=== PATIENT | female | born 1965 | race Caucasian/White ===

== ENCOUNTER 2020-05-09 12:18 | Outpatient (REF) | payer MEDICARE, MEDICAID, SELFPAY ==
--- NOTE | 2020-05-09 12:41 | CT_ITS ---
EXAMINATION: CT ABDOMEN AND PELVIS WITH CONTRAST CLINICAL INFORMATION: Malignant carcinoid tumor of the ileum COMPARISON: 12/21/2019 TECHNIQUE: Multidetector volumetric images were obtained from the superior aspect of the liver through the pubic symphysis following administration 85 mL of Omnipaque 350 intravenous contrast. Sagittal and coronal reformatted images were obtained on the technologist's workstation. Oral contrast: Yes This CT examination was performed using dose optimization techniques as appropriate, variously including the following: *Automated exposure control *Adjustment of mA and/or kV according to patient size (this includes techniques or standardized protocols for targeted exams where dose is matched to indication/reason for exam; i.e. extremities or head) *Use of iterative reconstruction technique DLP: 369 mGy-cm FINDINGS: LUNG BASES: The visualized lung bases are unremarkable. LIVER, GALLBLADDER, AND BILIARY TREE: Several hypoattenuating lesions compatible with metastases are again demonstrated. The majority of these appear similar to the previous study, with the exception of the lesion in the right hepatic lobe on image 20 which has increased in size, measuring 1.5 cm (previously 0.6 cm). No intrahepatic or extrahepatic biliary ductal dilatation. PANCREAS: Unremarkable. SPLEEN: Unremarkable. ADRENAL GLANDS: Unremarkable. KIDNEYS AND URETERS: The kidneys are normal in size, shape, and attenuation. No hydronephrosis, hydroureter, or calculi seen. No perinephric stranding. BLADDER: Unremarkable. GASTROINTESTINAL TRACT: The small and large bowel are unremarkable. No change. ABDOMINAL WALL: No significant hernia is appreciated. LYMPH NODES: Redemonstration of retroperitoneal/para-aortic lymphadenopathy. A left para-aortic lymph node immediately distal to the left renal artery measures 1.7 cm in transverse dimension, previously measuring 1.1 cm. Again demonstrated is a alphonso mass distal to the pancreatic head surrounding and narrowing the superior mesenteric vein, with enlargement of the small bowel mesenteric veins. This is demonstrated on axial images 31-35 and appears slightly larger. VASCULAR: Unremarkable. PELVIC VISCERA: Unremarkable. OSSEOUS STRUCTURES: There is increased density involving the superior portion of the S1 vertebral body which is similar to the previous study although is concerning for an osteoblastic metastasis. IMPRESSION: Increase in retroperitoneal adenopathy and the largest liver metastasis located in the right lobe as described. Slight increase in the alphonso mass surrounding the proximal SMV/peripancreatic region. Questionable osseous metastasis in the S1 vertebral body, similar to the previous study.
[2020-05-09 12:56] LABS: MANUAL DIFF FLAG NO
[2020-05-09 12:59] LABS: Basophils Percent Auto 0.5 % (0-2); Eosinophils Absolute Auto 0.1 X10*3/uL (0.0-0.4); Eosinophils Percent Auto 2.1 % (0-4); Hematocrit 35.8 % (37-47); Hemoglobin 11.5 g/dl (12.0-16.0); Imm Gran Abs Auto 0.01 X10*3/uL (0.00-0.03); Imm Gran Pct Auto 0.3 % (0.0-0.4); Lymphocytes Absolute Auto 0.7 X10*3/uL (1.2-4.9); Lymphocytes Percent Auto 18.6 % (20-40); Mean Corpuscular HGB Conc 32.1 g/dl (31.0-35.0); Mean Corpuscular Hemoglobin 28.8 pg (27.0-33.0); Mean Corpuscular Volume 89.7 fL (80-98); Mean Platelet Volume 10.1 fL (9.4-12.3); Monocytes Absolute Auto 0.3 X10*3/uL (0.1-1.2); Monocytes Percent Auto 6.4 % (2-11); Neutrophils Absolute Auto 2.8 X10*3/uL (2.0-8.3); Neutrophils Percent Auto 72.1 % (45-73); Platelet Count 236 X10*3/uL (160-400); Red Blood Count 3.99 X10*6/uL (4.20-5.50); Red Cell Distribution Width 13.4 % (11.0-16.0); White Blood Count 3.9 X10*3/uL (4.8-10.8)
[2020-05-09 13:48] LABS: Alanine Aminotransferase 10 U/L (0-31); Albumin Level 4.7 g/dL (3.5-5.0); Alkaline Phosphatase 94 U/L (39-117); Anion Gap 11 (12-20); Aspartate Amino Transferase 17 U/L (5-31); Bilirubin Total 0.3 mg/dL (0.0-1.0); Blood Urea Nitrogen 16 mg/dL (9-16); Calcium 9.2 mg/dL (8.4-10.2); Carbon Dioxide 27 mmol/L (22-29); Chloride 106 mmol/L (96-108); Estimated Glomerular Filt Rate 59; Glucose Random 69 mg/dL (60-115); Potassium 4.2 mmol/l (3.3-5.1); Sodium 140 mmol/L (135-145); Total Protein 7.5 g/dL (6.5-8.0)
[2020-05-09] MEDS: iohexoL 350 MG/ML 100 ML INFUS..BTL IV (15:40)
[2020-05-09] MEDS: Barium Sulfate Oral (Berry) 450 ML ORAL.SUSP PO ×2 (15:40→15:41)
[2020-05-14 18:06] LABS: Chromogranin A 766 ng/mL (25-140)
== END 2020-05-09 12:19 | disposition home or self-care (01) ==
LOC: HO.CT 12:18
PROVIDERS: PCP Internal Medicine; Visit Provider Internal Medicine Medical Oncology
DX: C7A.012 Malignant carcinoid tumor of the ileum (principal)
CPT/HCPCS: 36415; 74177; 80053; 85025; 86316

== ENCOUNTER 2020-06-27 12:40 | Outpatient (REF) | payer MEDICARE, MEDICAID, SELFPAY ==
[2020-06-27 13:48] LABS: Basophils Percent Auto 0.6 % (0-2); Eosinophils Absolute Auto 0.1 X10*3/uL (0.0-0.4); Eosinophils Percent Auto 1.7 % (0-4); Hematocrit 33.2 % (37-47); Hemoglobin 10.2 g/dl (12.0-16.0); Imm Gran Abs Auto 0.02 X10*3/uL (0.00-0.03); Imm Gran Pct Auto 0.4 % (0.0-0.4); Lymphocytes Absolute Auto 0.5 X10*3/uL (1.2-4.9); Lymphocytes Percent Auto 11.3 % (20-40); MANUAL DIFF FLAG SCAN; Mean Corpuscular HGB Conc 30.7 g/dl (31.0-35.0); Mean Corpuscular Hemoglobin 27.9 pg (27.0-33.0); Mean Platelet Volume 9.4 fL (9.4-12.3); Monocytes Absolute Auto 0.4 X10*3/uL (0.1-1.2); Monocytes Percent Auto 8.8 % (2-11); Neutrophils Absolute Auto 3.7 X10*3/uL (2.0-8.3); Neutrophils Percent Auto 77.2 % (45-73); Platelet Count 375 X10*3/uL (160-400); Red Blood Count 3.65 X10*6/uL (4.20-5.50); Red Cell Distribution Width 12.7 % (11.0-16.0); SCAN SMEAR FLAG 1; White Blood Count 4.8 X10*3/uL (4.8-10.8)
[2020-06-27 14:16] LABS: SLIDE REVIEW VERIFIED
[2020-06-27 14:25] LABS: Alanine Aminotransferase 164 U/L (0-31); Alkaline Phosphatase 226 U/L (39-117); Anion Gap 14 (12-20); Aspartate Amino Transferase 53 U/L (5-31); Bilirubin Total 0.3 mg/dL (0.0-1.0); Blood Urea Nitrogen 12 mg/dL (9-16); Carbon Dioxide 33 mmol/L (22-29); Chloride 97 mmol/L (96-108); Estimated Glomerular Filt Rate 47; Glucose Random 111 mg/dL (60-115); Sodium 140 mmol/L (135-145); Total Protein 7.2 g/dL (6.5-8.0)
[2020-07-01 19:32] LABS: Chromogranin A 680 ng/mL (25-140)
== END 2020-06-27 12:41 | disposition home or self-care (01) ==
LOC: HO.LAB 12:40
PROVIDERS: PCP Internal Medicine; Visit Provider Internal Medicine Medical Oncology
DX: C7A.012 Malignant carcinoid tumor of the ileum (principal)
CPT/HCPCS: 36415; 80053; 85025; 86316

== ENCOUNTER 2020-07-31 15:14 | Outpatient (REF) | payer MEDICARE, MEDICAID, SELFPAY ==
[2020-07-31 15:47] LABS: Basophils Percent Auto 0.8 % (0-2); Eosinophils Absolute Auto 0.2 X10*3/uL (0.0-0.4); Eosinophils Percent Auto 5.9 % (0-4); Hematocrit 36.4 % (37-47); Hemoglobin 11.2 g/dl (12.0-16.0); Imm Gran Abs Auto 0.01 X10*3/uL (0.00-0.03); Imm Gran Pct Auto 0.3 % (0.0-0.4); Lymphocytes Absolute Auto 0.7 X10*3/uL (1.2-4.9); Lymphocytes Percent Auto 19.6 % (20-40); MANUAL DIFF FLAG NO; Mean Corpuscular HGB Conc 30.8 g/dl (31.0-35.0); Mean Corpuscular Hemoglobin 27.9 pg (27.0-33.0); Mean Corpuscular Volume 90.5 fL (80-98); Mean Platelet Volume 9.9 fL (9.4-12.3); Monocytes Absolute Auto 0.3 X10*3/uL (0.1-1.2); Monocytes Percent Auto 7.5 % (2-11); Neutrophils Absolute Auto 2.5 X10*3/uL (2.0-8.3); Neutrophils Percent Auto 65.9 % (45-73); Platelet Count 230 X10*3/uL (160-400); Red Blood Count 4.02 X10*6/uL (4.20-5.50); Red Cell Distribution Width 13.4 % (11.0-16.0); White Blood Count 3.7 X10*3/uL (4.8-10.8)
[2020-07-31 16:11] LABS: Alanine Aminotransferase 30 U/L (0-31); Albumin Level 4.5 g/dL (3.5-5.0); Alkaline Phosphatase 152 U/L (39-117); Anion Gap 10 (12-20); Aspartate Amino Transferase 37 U/L (5-31); Bilirubin Total 0.2 mg/dL (0.0-1.0); Blood Urea Nitrogen 11 mg/dL (9-16); Calcium 8.8 mg/dL (8.4-10.2); Carbon Dioxide 31 mmol/L (22-29); Chloride 103 mmol/L (96-108); Estimated Glomerular Filt Rate 59; Glucose Random 90 mg/dL (60-115); Potassium 4.2 mmol/l (3.3-5.1); Sodium 140 mmol/L (135-145); Total Protein 7.5 g/dL (6.5-8.0)
[2020-08-05 18:07] LABS: Chromogranin A 691 ng/mL (25-140)
== END 2020-07-31 15:15 | disposition home or self-care (01) ==
LOC: HO.LAB 15:14
PROVIDERS: PCP Internal Medicine; Visit Provider Internal Medicine Medical Oncology
DX: C7A.012 Malignant carcinoid tumor of the ileum (principal)
CPT/HCPCS: 36415; 80053; 85025; 86316

== ENCOUNTER → 2020-08-16 13:56 | Outpatient (BNVA) | payer OTHER, MEDICARE, SELFPAY | PROVIDERS: PCP Internal Medicine; Visit Provider Internal Medicine Gastroenterology | DX: Z13.89 Encounter for screening for other disorder (principal) | CPT/HCPCS: Q3014 ==

== ENCOUNTER 2020-08-23 12:40 | Outpatient (REF) | payer OTHER, SELFPAY ==
[2020-08-23 13:19] LABS: MANUAL DIFF FLAG NO
[2020-08-23 13:24] LABS: Basophils Percent Auto 0.7 % (0-2); Eosinophils Absolute Auto 0.1 X10*3/uL (0.0-0.4); Eosinophils Percent Auto 1.1 % (0-4); Hematocrit 33.9 % (37-47); Hemoglobin 10.6 g/dl (12.0-16.0); Imm Gran Abs Auto 0.01 X10*3/uL (0.00-0.03); Imm Gran Pct Auto 0.2 % (0.0-0.4); Lymphocytes Absolute Auto 0.8 X10*3/uL (1.2-4.9); Lymphocytes Percent Auto 17.3 % (20-40); Mean Corpuscular HGB Conc 31.3 g/dl (31.0-35.0); Mean Corpuscular Hemoglobin 27.7 pg (27.0-33.0); Mean Corpuscular Volume 88.7 fL (80-98); Mean Platelet Volume 9.8 fL (9.4-12.3); Monocytes Absolute Auto 0.3 X10*3/uL (0.1-1.2); Monocytes Percent Auto 6.8 % (2-11); Neutrophils Absolute Auto 3.3 X10*3/uL (2.0-8.3); Neutrophils Percent Auto 73.9 % (45-73); Platelet Count 227 X10*3/uL (160-400); Red Blood Count 3.82 X10*6/uL (4.20-5.50); Red Cell Distribution Width 13.5 % (11.0-16.0); White Blood Count 4.4 X10*3/uL (4.8-10.8)
[2020-08-23 13:45] LABS: Alanine Aminotransferase 19 U/L (0-31); Albumin Level 4.5 g/dL (3.5-5.0); Alkaline Phosphatase 139 U/L (39-117); Anion Gap 11 (12-20); Aspartate Amino Transferase 23 U/L (5-31); Bilirubin Total 0.2 mg/dL (0.0-1.0); Blood Urea Nitrogen 20 mg/dL (9-16); Carbon Dioxide 28 mmol/L (22-29); Chloride 102 mmol/L (96-108); Estimated Glomerular Filt Rate > 60; Glucose Random 94 mg/dL (60-115); Potassium 4.4 mmol/l (3.3-5.1); Sodium 137 mmol/L (135-145); Total Protein 7.4 g/dL (6.5-8.0)
[2020-08-28 21:53] LABS: Chromogranin A 694 ng/mL (25-140)
== END 2020-08-23 12:41 | disposition home or self-care (01) ==
LOC: HO.LAB 12:40
PROVIDERS: Visit Provider Internal Medicine Medical Oncology
DX: E34.0 Carcinoid syndrome (principal)
CPT/HCPCS: 36415; 80053; 85025; 86316

== ENCOUNTER 2020-08-31 08:24 | Day surgery (SDC) | payer OTHER, SELFPAY ==
[2020-08-28 09:18] VITALS: BMI 23.8
--- NOTE | 2020-08-28 13:12 | HO.ANESPROP2 ---
Documented by User: Marisol Ordoñez 08/28/20 13:16 HPI - Anesthesia Eval Consult details Narrative: 54yo F for Upper Endoscopy PMFSH Past Medical History Medical History Depression History of headache HTN (hypertension) Hx of left bundle branch block Lab test negative for COVID-19 virus Liver metastasis Malignant carcinoid tumor of ileum Family History Family History Brother History of throat cancer Maternal Aunt History of colon cancer Mother Hx of completed stroke Father No problems noted. Surgical History Surgical History H/O colonoscopy History of History of endometrial ablation History of esophagogastroduodenoscopy (EGD) History of right hemicolectomy (~01/2018) Hx of dilation and curettage Hx of eye surgery Hx of tubal ligation Social History Social History Household Members: Spouse and Children Are you a primary client care representative to a significant other at home: No Do you presently have visiting nurse or other home services: No Alcohol intake: never Smoking Status: Never smoker Use of substances other than those prescribed or required for medical reasons: No Have you been hit, kicked, punched, or otherwise hurt by someone within the past year? If so, by whom?: No Advance Directives Information Provided: No Recently lost weight without trying: No Current occupational status: disabled Narrative Narrative: 2019 cardiac work up for presyncope and chest pain was negative by echo and holter. No need for ischemic w/u per cardiology. Meds Allergies Allergy/AdvReac Type Severity Reaction Status Date / Time oxycodone Allergy Intermediate hives Verified 08/31/20 09:01 Home Medications Medication Instructions Recorded Confirmed Type carvedilol 6.25 mg tablet 6.25 mg PO BID 08/16/20 08/27/20 History telotristat etiprate 250 mg tablet 250 mg PO BID tab 08/16/20 08/27/20 History Exam Exam Date and Time: August 28, 2020 1312 Height,Weight and Vital Signs: Height 5 ft 2 in Weight 58.967 kg Pertinent Lab Results Pertinent Lab Results: Laboratory Tests 08/23/20 08/23/20 13:00 13:00 WBC 4.4 L Hgb 10.6 L Hct 33.9 L Plt Count 227 Sodium 137 Potassium 4.4 Chloride 102 Carbon Dioxide 28 BUN 20 H D Creatinine 0.92 Assessment and Plan Assessment Anesthesia Assessment: Chart Reviewed Documented by User: Sourav Salazar 08/31/20 09:11 [facility] Past Medical History Medical History Depression History of headache HTN (hypertension) Hx of left bundle branch block Lab test negative for COVID-19 virus Liver metastasis Malignant carcinoid tumor of ileum Family History Family History Brother History of throat cancer Maternal Aunt History of colon cancer Mother Hx of completed stroke Father No problems noted. Surgical History Surgical History H/O colonoscopy History of History of endometrial ablation History of esophagogastroduodenoscopy (EGD) History of right hemicolectomy (~01/2018) Hx of dilation and curettage Hx of eye surgery Hx of tubal ligation Social History Social History Household Members: Spouse and Children Are you a primary client care representative to a significant other at home: No Do you presently have visiting nurse or other home services: No Alcohol intake: never Smoking Status: Never smoker Use of substances other than those prescribed or required for medical reasons: No Have you been hit, kicked, punched, or otherwise hurt by someone within the past year? If so, by whom?: No Advance Directives Information Provided: No Recently lost weight without trying: No Current occupational status: disabled Meds Allergies Allergy/AdvReac Type Severity Reaction Status Date / Time oxycodone Allergy Intermediate hives Verified 08/31/20 09:01 Home Medications Medication Instructions Recorded Confirmed Type carvedilol 6.25 mg tablet 6.25 mg PO BID 08/16/20 08/27/20 History telotristat etiprate 250 mg tablet 250 mg PO BID tab 08/16/20 08/27/20 History Exam Airway Mallampati Class: II TM Dist: >3cm Neck ROM: Full
[2020-08-31 09:01] VITALS: BP 141/91; PULSE 66; RESP 18; TEMP 36.1; O2SAT 95
--- NOTE | 2020-08-31 09:12 | W.PM.OPN ---
Operative Note Operative Note Date of Service: 08/31/20 Narrative: Pre-op diagnosis: Nausea and vomiting Post-op diagnosis: other (Gastritis, gastric polyps) Procedure: FLEXIBLE TRANSORAL UPPER GASTROINTESTINAL ENDOSCOPY WITH BIOPSIES Consent: Indications for the procedure and potential complications of bleeding, perforation, reaction to medications and missed diagnosis were discussed with the patient and informed consent was obtained. Instrument: Olympus GIF H 190 mid size upper endoscope Monitoring: Vital signs and clinical assessment, continuous EKG monitoring, Pulse oximetry, Carbon Dioxide monitoring and blood pressure monitoring were done throughout the procedure. Procedure: The patient was placed in the left lateral decubitis position and pre-procedure medications were administered and a bite block was placed. The endoscope was inserted into the mouth and advanced under direct vision to the third part of duodenum. A careful inspection was made as the upper endoscope was withdrawn including a retroflexed examination of the proximal stomach; Findings and interventions are described below. Findings: Esophagus: GE junction at 35 cms. Irregular Z-line, - biopsies to check for Asencio's Stomach: Moderate diffuse gastric erythema. Biopsies were obtained from the gastric body and antrum. Multiple 3 - 5 mm polyps in the gastric body - biopsied. Grade 2 flap valve on retroflexed examination of the cardia. Duodenum: Normal bulb and descending duodenum. Biopsies were obtained from the 2nd part of duodenum to check for celiac sprue. Intervention: Biopsies as noted above Impression and Post Procedure Diagnosis: Endoscopy Findings: ESOPHAGUS: Irregular Z-line, - biopsied to check for Asencio's STOMACH: Moderate diffuse gastritis DUODENUM: Normal biopsied to check for celiac sprue No clear source found for patient's symptoms of nausea and vomiting - possibly related to medications versus partial small-bowel obstruction. Plan: Await pathology results. If biopsies are normal, further evaluation with MR enterography versus small-bowel follow-through will be scheduled. Patient has a FU appointment in the [facility] on 09/06/2020 with Phoebe Doulgass M.D.-. Above findings were reviewed with the patient and Gastritis handout was given in the discharge area Surgeon: Phobee Douglass MD Anesthesia: MAC (TORPEDO SHOOTER Cuff) Estimated blood loss (mL): 0 Pathology: other (A. Small-bowel, B. gastric antrum, C. gastric polyp, D. distal esophagus) Condition: stable Disposition: PACU
--- NOTE | 2020-08-31 09:12 | MHC.SHP ---
Pre-Procedural Eval Section A The patient is an INPATIENT: No Changes since office visit: Yes Patient answered all questions; No Cold of Flu in the past 2 weeks and No New Medical Problems The History & Physical has been completed within 30 days and I have reviewed it.: Yes Section B Chief Complaint: dysphagia Allergies: Allergies Allergy/AdvReac Type Severity Reaction Status Date / Time oxycodone Allergy Intermediate hives Verified 08/31/20 09:01 Plan I have reviewed the history and physical and performed a pertinent physical examination on my patient. No changes have occurred unless specified.
[2020-08-31] MEDS: Lactated Ringers 1,000 ML 100 ML IVCONT (09:14)
[2020-08-31 09:42] VITALS: BP 111/68; PULSE 65; RESP 16; TEMP 36.4; O2SAT 100
[2020-08-31 09:57] VITALS: BP 136/76; PULSE 67; RESP 13; TEMP 36.4; O2SAT 100
== END 2020-08-31 10:25 | disposition home or self-care (01) ==
PROVIDERS: PCP Internal Medicine; Visit Provider Internal Medicine Gastroenterology
PROC: 0DJ08ZZ Inspection of Upper Intestinal Tract, Via Natural or Artificial Opening Endoscopic (ICD-10-PCS; CPT 43235; principal; 2020-08-31 09:50)
DX: R13.12 Dysphagia, oropharyngeal phase (principal); K29.50 Unspecified chronic gastritis without bleeding; B96.81 Helicobacter pylori [H. pylori] as the cause of diseases classified elsewhere; K31.7 Polyp of stomach and duodenum; C7A.012 Malignant carcinoid tumor of the ileum; C7B.02 Secondary carcinoid tumors of liver; Z90.49 Acquired absence of other specified parts of digestive tract; I10 Essential (primary) hypertension; F32.9 Major depressive disorder, single episode, unspecified; G43.909 Migraine, unspecified, not intractable, without status migrainosus; Z79.899 Other long term (current) drug therapy; Z88.8 Allergy status to other drugs, medicaments and biological substances; Z80.1 Family history of malignant neoplasm of trachea, bronchus and lung; Z82.3 Family history of stroke
CPT/HCPCS: 43239; 88305; 88342

== ENCOUNTER → 2020-09-06 12:59 | Outpatient (BNVA) | payer OTHER, SELFPAY | PROVIDERS: PCP Internal Medicine; Visit Provider Internal Medicine Gastroenterology | DX: Z13.89 Encounter for screening for other disorder (principal) | CPT/HCPCS: Q3014 ==

== ENCOUNTER 2020-09-21 13:29 | Outpatient (REF) | payer OTHER, SELFPAY ==
[2020-09-21 14:20] LABS: MANUAL DIFF FLAG NO
[2020-09-21 14:23] LABS: Basophils Percent Auto 0.6 % (0-2); Eosinophils Absolute Auto 0.1 X10*3/uL (0.0-0.4); Eosinophils Percent Auto 2.2 % (0-4); Hematocrit 33.2 % (37-47); Hemoglobin 10.6 g/dl (12.0-16.0); Imm Gran Abs Auto 0.01 X10*3/uL (0.00-0.03); Imm Gran Pct Auto 0.3 % (0.0-0.4); Lymphocytes Absolute Auto 0.8 X10*3/uL (1.2-4.9); Lymphocytes Percent Auto 21.8 % (20-40); Mean Corpuscular HGB Conc 31.9 g/dl (31.0-35.0); Mean Corpuscular Hemoglobin 27.9 pg (27.0-33.0); Mean Corpuscular Volume 87.4 fL (80-98); Mean Platelet Volume 10.3 fL (9.4-12.3); Monocytes Absolute Auto 0.3 X10*3/uL (0.1-1.2); Neutrophils Absolute Auto 2.4 X10*3/uL (2.0-8.3); Neutrophils Percent Auto 68.1 % (45-73); Platelet Count 222 X10*3/uL (160-400); Red Cell Distribution Width 13.8 % (11.0-16.0); White Blood Count 3.6 X10*3/uL (4.8-10.8)
[2020-09-21 14:56] LABS: Alanine Aminotransferase 26 U/L (0-31); Albumin Level 4.4 g/dL (3.5-5.0); Alkaline Phosphatase 126 U/L (39-117); Anion Gap 9 (12-20); Aspartate Amino Transferase 50 U/L (5-31); Bilirubin Total 0.5 mg/dL (0.0-1.0); Blood Urea Nitrogen 13 mg/dL (9-16); Calcium 8.8 mg/dL (8.4-10.2); Carbon Dioxide 27 mmol/L (22-29); Chloride 105 mmol/L (96-108); Estimated Glomerular Filt Rate 55; Glucose Random 120 mg/dL (60-115); Potassium 4.1 mmol/L (3.3-5.1); Sodium 137 mmol/L (135-145); Total Protein 7.3 g/dL (6.5-8.0)
[2020-09-25 17:52] LABS: Chromogranin A 812 ng/mL (25-140)
== END 2020-09-21 13:30 | disposition home or self-care (01) ==
LOC: HO.LAB 13:29
PROVIDERS: PCP Internal Medicine; Visit Provider Internal Medicine Medical Oncology
DX: C7A.012 Malignant carcinoid tumor of the ileum (principal)
CPT/HCPCS: 36415; 80053; 85025; 86316

== ENCOUNTER → 2020-10-15 11:45 | Outpatient (BNVA) | payer OTHER, SELFPAY | PROVIDERS: Visit Provider Internal Medicine Gastroenterology | CPT/HCPCS: Q3014 ==

== ENCOUNTER 2020-10-17 09:03 | Outpatient (REF) | payer OTHER, SELFPAY ==
--- NOTE | ~2020-10-17 | CT_ITS ---
EXAMINATION: CT ABDOMEN AND PELVIS WITH CONTRAST CLINICAL INFORMATION: History malignant carcinoid ileum with small liver metastasis. Follow-up. COMPARISON: CT abdomen and pelvis with contrast 05/09/2020, 12/21/2019, 06/07/2019, 12/22/2018. TECHNIQUE: Multidetector volumetric images were obtained from the superior aspect of the liver through the pubic symphysis following administration 85 mL of Omnipaque 350 intravenous contrast. Sagittal and coronal reformatted images were obtained on the technologist's workstation. Oral contrast: No This CT examination was performed using dose optimization techniques as appropriate, variously including the following: *Automated exposure control *Adjustment of mA and/or kV according to patient size (this includes techniques or standardized protocols for targeted exams where dose is matched to indication/reason for exam; i.e. extremities or head) *Use of iterative reconstruction technique DLP: 353 mGy-cm FINDINGS: LUNG BASES: The visualized lung bases are unremarkable. LIVER, GALLBLADDER, AND BILIARY TREE: The dominant ill-defined hypodense lesion central right lobe is again approximately 1.5 cm in diameter. There is interval satellite foci extending laterally and inferiorly with associated capsular retraction since prior CT 05/09/2020. Remainder of the liver appear stable from prior study. Again, there are a few tiny low-attenuation foci without change. The gallbladder is unremarkable with no evidence of radiopaque gallstones, gallbladder wall thickening, or obvious pericholecystic inflammatory changes. PANCREAS: Unremarkable. SPLEEN: Unremarkable. ADRENAL GLANDS: Unremarkable. KIDNEYS AND URETERS: The kidneys are normal in size, shape, and attenuation. No hydronephrosis, hydroureter, or calculi seen. No perinephric stranding. BLADDER: Unremarkable. GASTROINTESTINAL TRACT: Prior partial right hemicolectomy. No bowel obstruction or inflammatory changes in the bowel or mesentery. No ascites or fluid collection. ABDOMINAL WALL: No significant hernia is appreciated. LYMPH NODES: Scattered upper retroperitoneal adenopathy at level and just below renal vessels are stable. There is stable mesenteric node adjacent to anterior inferior pancreatic head. VASCULAR: Unremarkable. PELVIC VISCERA: Unremarkable. OSSEOUS STRUCTURES: Unremarkable. CT/CT abdomen pelvis w con IMPRESSION: 1. Liver: New ill-defined satellite foci adjacent to the dominant metastatic lesion central right hepatic lobe with new mild capsular retraction. Other smaller subcentimeter hepatic lesions stable. 2. Adenopathy: Retroperitoneal and central mesenteric nodes stable. 3. No bowel obstruction or ascites.
[2020-10-17] MEDS: Barium Sulfate Oral (Mocha) 450 ML ORAL.SUSP 900 ML PO (12:21)
== END 2020-10-17 09:04 | disposition home or self-care (01) ==
LOC: HO.CT 09:03
PROVIDERS: PCP Internal Medicine Medical Oncology; Visit Provider Internal Medicine Medical Oncology
DX: E34.0 Carcinoid syndrome (principal)
CPT/HCPCS: 74177; Q9967

== ENCOUNTER 2020-11-09 09:03 | Outpatient (REF) | payer OTHER, SELFPAY ==
[2020-11-09 09:39] LABS: Basophils Percent Auto 0.6 % (0-2); Eosinophils Absolute Auto 0.1 X10*3/uL (0.0-0.4); Eosinophils Percent Auto 4.2 % (0-4); Hemoglobin 11.3 g/dl (12.0-16.0); Imm Gran Abs Auto 0.01 X10*3/uL (0.00-0.03); Imm Gran Pct Auto 0.3 % (0.0-0.4); Lymphocytes Absolute Auto 0.7 X10*3/uL (1.2-4.9); Lymphocytes Percent Auto 19.3 % (20-40); MANUAL DIFF FLAG SCAN; Mean Corpuscular HGB Conc 30.5 g/dl (31.0-35.0); Mean Corpuscular Volume 88.3 fL (80-98); Mean Platelet Volume 9.9 fL (9.4-12.3); Monocytes Absolute Auto 0.2 X10*3/uL (0.1-1.2); Monocytes Percent Auto 5.9 % (2-11); Neutrophils Absolute Auto 2.4 X10*3/uL (2.0-8.3); Neutrophils Percent Auto 69.7 % (45-73); Platelet Count 244 X10*3/uL (160-400); Red Blood Count 4.19 X10*6/uL (4.20-5.50); Red Cell Distribution Width 13.9 % (11.0-16.0); SCAN SMEAR FLAG 1; White Blood Count 3.4 X10*3/uL (4.8-10.8)
[2020-11-09 10:03] LABS: Alanine Aminotransferase 20 U/L (0-31); Albumin Level 4.9 g/dL (3.5-5.0); Alkaline Phosphatase 129 U/L (39-117); Anion Gap 11 (12-20); Aspartate Amino Transferase 24 U/L (5-31); Blood Urea Nitrogen 13 mg/dL (9-16); Calcium 9.3 mg/dL (8.4-10.2); Carbon Dioxide 31 mmol/L (22-29); Chloride 103 mmol/L (96-108); Estimated Glomerular Filt Rate 52; Glucose Random 98 mg/dL (60-115); Potassium 4.3 mmol/L (3.3-5.1); Sodium 141 mmol/L (135-145)
[2020-11-09 10:16] LABS: Bilirubin Total 0.4 mg/dL (0.0-1.0)
[2020-11-09 10:31] LABS: SLIDE REVIEW VERIFIED
[2020-11-14 18:02] LABS: Chromogranin A 820 ng/mL (25-140)
== END 2020-11-09 09:04 | disposition home or self-care (01) ==
LOC: HO.LAB 09:03
PROVIDERS: PCP Internal Medicine; Visit Provider Internal Medicine Medical Oncology
DX: C7A.012 Malignant carcinoid tumor of the ileum (principal)
CPT/HCPCS: 36415; 80053; 85025; 86316

== ENCOUNTER 2020-11-15 08:19 | Outpatient (REF) | payer OTHER, SELFPAY ==
--- NOTE | ~2020-11-15 | MM_ITS ---
EXAMINATION: BONE DENSITOMETRY CLINICAL INDICATION: Asymptomatic menopausal state. COMPARISON: None (current study represents initial baseline exam). TECHNIQUE: Using a [employer] DXA System (software version: 13.1) manufactured by [employer], dual-energy x-ray absorptiometry was performed of the lumbar spine and left hip. The images are of good technical quality. Summary results are attached. FINDINGS: AP SPINE L1-L4: BMD 1.038 g/cm2, Z-score -0.1, T-score -1.2, osteopenia. LEFT FEMUR, NECK: BMD 0.724 g/cm2, Z-score -1.1, T-score -2.3, osteopenia. LEFT FEMUR, TOTAL: BMD 0.742 g/cm2, Z-score -1.3, T-score -2.1, osteopenia. IDENTIFIED RISK FACTORS: Secondary osteoporosis, menopause. HISTORY OF FRACTURE: None listed. MEDICATIONS: None listed. MM/XR DEXA axial skeleton IMPRESSION: 1. DIAGNOSIS: Osteopenia based on the lowest T-score value of -2.3 in the femoral neck applying World Health Organization criteria. 2. 10-YEAR FRACTURE RISK PREDICTION, FRAX: Major osteoporotic fracture (clinical spine, forearm, hip or shoulder) 5.3%. Hip fracture 0.8%. 3. Treatment Recommendations: NOF guidelines recommend consideration for treatment in postmenopausal women and men age 50 and older presenting with the following: -A hip or vertebral (clinical or morphometric) fracture. -T-score less than or equal to -2.5 at the femoral neck or spine after appropriate evaluation to exclude secondary causes. -Low bone mass at the hip or spine and a 10-year fracture probability by FRAX of greater than or equal to 3% for hip fracture or greater than or equal to 20% for major osteoporotic fracture based on the [place] adapted WHO algorithm. 4. Other Recommendations: All treatment decisions require clinical judgment and consideration of individual patient factors, including patient preferences, comorbidities, previous drug use, risk factors not captured in the FRAX model (e.g. frailty, falls, vitamin D deficiency, increased bone turnover, interval significant decline in bone density) and possible under or overestimation of fracture risk by FRAX. Additional medical evaluation for secondary cause of low bone mineral density may be appropriate. FUTURE SCAN RECOMMENDATION: People with diagnosed cases of osteoporosis or at high risk for fracture should have regular bone mineral density tests. For patients eligible for Medicare, routine testing is allowed once every 2 years. The testing frequency can be increased to one year for patients who have rapidly progressing disease, those who are receiving or discontinuing medical therapy to restore bone mass, or have additional risk factors.
== END 2020-11-15 08:20 | disposition home or self-care (01) ==
LOC: HO.MAMMO 08:19
PROVIDERS: PCP Internal Medicine; Visit Provider Internal Medicine
DX: Z13.820 Encounter for screening for osteoporosis (principal); M85.80 Other specified disorders of bone density and structure, unspecified site; Z78.0 Asymptomatic menopausal state
CPT/HCPCS: 77080

== ENCOUNTER 2020-11-15 10:48 | Outpatient (REF) | payer OTHER, SELFPAY ==
[2020-11-16 07:56] LABS: Follicle Stimulating Hormone 122.9 mIU/mL; Lutenizing Hormone 38.1 mIU/mL
== END 2020-11-15 10:49 | disposition home or self-care (01) ==
LOC: HO.10HDL 10:48
PROVIDERS: Visit Provider Internal Medicine Medical Oncology
DX: C7A.012 Malignant carcinoid tumor of the ileum (principal)
CPT/HCPCS: 36415; 83001; 83002

== ENCOUNTER 2020-11-28 09:03 | Outpatient (REF) | payer OTHER, SELFPAY ==
[2020-11-28 09:44] LABS: Basophils Percent Auto 0.5 % (0-2); Eosinophils Absolute Auto 0.2 X10*3/uL (0.0-0.4); Eosinophils Percent Auto 4.8 % (0-4); Hematocrit 33.7 % (37-47); Hemoglobin 10.7 g/dl (12.0-16.0); Imm Gran Abs Auto 0.01 X10*3/uL (0.00-0.03); Imm Gran Pct Auto 0.3 % (0.0-0.4); Lymphocytes Absolute Auto 0.6 X10*3/uL (1.2-4.9); Lymphocytes Percent Auto 15.6 % (20-40); MANUAL DIFF FLAG SCAN; Mean Corpuscular HGB Conc 31.8 g/dl (31.0-35.0); Mean Corpuscular Hemoglobin 28.2 pg (27.0-33.0); Mean Corpuscular Volume 88.9 fL (80-98); Mean Platelet Volume 9.8 fL (9.4-12.3); Monocytes Absolute Auto 0.3 X10*3/uL (0.1-1.2); Monocytes Percent Auto 6.9 % (2-11); Neutrophils Absolute Auto 2.7 X10*3/uL (2.0-8.3); Neutrophils Percent Auto 71.9 % (45-73); Platelet Count 207 X10*3/uL (160-400); Red Blood Count 3.79 X10*6/uL (4.20-5.50); Red Cell Distribution Width 13.8 % (11.0-16.0); SCAN SMEAR FLAG 1; White Blood Count 3.8 X10*3/uL (4.8-10.8)
[2020-11-28 10:06] LABS: Alanine Aminotransferase 17 U/L (0-31); Albumin Level 4.3 g/dL (3.5-5.0); Alkaline Phosphatase 115 U/L (39-117); Anion Gap 13 (12-20); Aspartate Amino Transferase 26 U/L (5-31); Bilirubin Total 0.2 mg/dL (0.0-1.0); Blood Urea Nitrogen 16 mg/dL (9-16); Calcium 9.1 mg/dL (8.4-10.2); Carbon Dioxide 28 mmol/L (22-29); Chloride 103 mmol/L (96-108); Estimated Glomerular Filt Rate 56; Glucose Random 99 mg/dL (60-115); Potassium 4.2 mmol/L (3.3-5.1); Sodium 140 mmol/L (135-145); Total Protein 7.1 g/dL (6.5-8.0)
[2020-11-28 11:40] LABS: SLIDE REVIEW VERIFIED
[2020-12-02 17:01] LABS: Chromogranin A 2784 ng/mL (ADULTS: <311)
== END 2020-11-28 09:04 | disposition home or self-care (01) ==
LOC: HO.LAB 09:03
PROVIDERS: PCP Internal Medicine; Visit Provider Internal Medicine Medical Oncology
DX: C7A.012 Malignant carcinoid tumor of the ileum (principal)
CPT/HCPCS: 36415; 80053; 85025; 86316

== ENCOUNTER 2020-11-29 14:28 | Outpatient (REF) | payer OTHER, SELFPAY | END 2020-11-29 14:29 | disposition home or self-care (01) | LOC: HO.LNP 14:28 | PROVIDERS: Visit Provider Internal Medicine Gastroenterology | DX: K29.70 Gastritis, unspecified, without bleeding (principal); B96.81 Helicobacter pylori [H. pylori] as the cause of diseases classified elsewhere | CPT/HCPCS: 87338 ==

== ENCOUNTER 2020-12-01 10:07 | Outpatient (REF) | payer OTHER, SELFPAY ==
[2020-12-05 16:41] LABS: Hydroindolacetic Acid,5- 20.6 mg/24 h (<=6.0); Total Volume 875 mL
== END 2020-12-01 10:08 | disposition home or self-care (01) ==
LOC: HO.LNP 10:07
PROVIDERS: Visit Provider Internal Medicine Medical Oncology
DX: C7A.012 Malignant carcinoid tumor of the ileum (principal); R06.00 Dyspnea, unspecified
CPT/HCPCS: 81050; 83497

== ENCOUNTER → 2020-12-03 09:35 | Outpatient (BNVA) | payer OTHER, SELFPAY | PROVIDERS: PCP Internal Medicine; Visit Provider Internal Medicine Gastroenterology | CPT/HCPCS: Q3014 ==

== ENCOUNTER → 2020-12-05 09:30 | Outpatient (BNVA) | payer OTHER, SELFPAY | PROVIDERS: PCP Internal Medicine; Visit Provider Advanced Practice Midwife | DX: R23.2 Flushing (principal); R79.89 Other specified abnormal findings of blood chemistry | CPT/HCPCS: 99202 ==

== ENCOUNTER → 2020-12-10 13:00 | Outpatient (REF) | payer OTHER, SELFPAY ==
--- NOTE | 2020-12-10 13:05 | CA_ITS ---
Transthoracic Echocardiogram Patient (Last, First, Middle): Berta Kirkland M Gender: Female Date of : 1965 Age: 55 Procedure Date: 12/10/2020 Procedure Type: Transthoracic Echocardiogram Location: OP Height: 157.48 cm Weight: 63.05 kg BSA: 1.64 m2 Heart Rate: bpm BP: 118 / 60 mmHg Pharmacovigilance Specialist: Referring MD: Sreekanth Sutton MD Symptoms: DYSPNEA , MALIGNANT CARCIOID TUMOR OF THE ILEIUM Study Quality: Fair ECG Rhythm: Sinus Conclusions: - The left ventricular systolic function is normal. The visually estimated ejection fraction is between 55-60%. - There is mild mitral valve regurgitation. - There is mild dilatation of the ascending aorta measuring 3.80 cm. Findings Left Ventricle Normal left ventricular cavity size. There is normal left ventricular wall thickness. The left ventricular systolic function is normal. The visually estimated ejection fraction is between 55-60%. There is no evidence of regional wall motion abnormalities. E/E prime ratio is >15, consistent with elevated filling pressures. Evidence suggests grade I (mild) diastolic dysfunction. Right Ventricle Normal right ventricular cavity size and systolic function. Atria The left atrium is normal in size. The right atrium is normal in size. Aortic Valve The aortic valve was not well visualized. There is no aortic valve stenosis. There is no aortic valve regurgitation. Mitral Valve The mitral valve appears normal. There is mild mitral valve regurgitation. There is no mitral valve stenosis. Pulmonic Valve The pulmonic valve was not well visualized. There is trace pulmonic valve regurgitation. Tricuspid Valve Normal tricuspid valve structure. There is no tricuspid valve regurgitation. The pulmonary artery systolic pressure is normal. Great Vessels There is mild dilatation of the ascending aorta measuring 3.80 cm. Venous The inferior vena cava is normal in size and collapses greater than 50% with inspiration. Pericardium/Pleural There is no evidence of pericardial effusion. Prior Study Comparison No significant change compared to prior study dated: 03/04/2019. Measurements 2D Linear Measurements IVSd: 0.94 0.6-0.9/0.6-1.0 cm LVIDd: 4.21 3.9-5.3/4.2-5.9 cm LVIDd Index: 2.57 2.4-3.2/2.2-3.1 cm/m2 LVIDs: 2.73 2.0-3.6 cm LVPWd: 0.85 0.7-1.1 cm Ao Root: 3.50 2.1-3.5 cm LA Diam: 3.40 2.7-3.8/3.0-4.0 cm LAIDs Index: 2.07 1.5-2.3 cm/m2 LV Mass: 145.92 67-162/88-224 g LV Mass Index: 88.97 43-95/49-115 g/m2 LVOT Diam: 2.00 3.0+(-)1.3 cm 2D Systolic Function EF 4C: 59.10 >55% EF 2C: 57.60 >55% EF BiP: 58.20 >55% Mitral Valve MV Pk E: 0.75 MV PK A: 1.01 MV Decel Time: 183.00 E/A: 0.70 E'Lateral: 6.96 E'Medial: 4.93 E/E' Med: 15.20 E/E' Lat: 10.70 PHT: 54.00 MVA PHT: 4.07 Decel Taliaferro: 4.08 Aortic Valve AoV Pk Billy: 1.52 AoV Mn Billy: 0.94 AoV VTI: 0.29 AoV Pk Grad: 9.00 Aov Mn Grad: 4.00 CARLOS Cont.VTI: 2.70 LVOT LVOT Pk Billy: 1.23 LVOT Mn Billy: 0.79 LVOT VTI: 0.25 LVOT Pk Grad: 6.00 LVOT Mn Grad: 3.00 LVOT Diam: 2.00 LVOT Area: 3.14 Diastolic Function MV Pk E: 0.75 MV Pk A: 1.01 E/A: 0.70 E'Medial: 4.93 E/E' Med: 15.20 E' Laterial: 6.96 E/E' Lat: 10.70 Tricuspid Valve TR Pk Billy: 2.23 TR Pk Grad: 20.00 RA Press: 3.00 RVSP: 23.00 Great Vessels Aorta Ao Root-2D: 3.50 2.0-3.7 cm Ao Asc: 3.80 2.1-3.4 cm Pulmonary Valve PV Pk Billy: 0.88 Peak PV Grad: 3.00 Updated in Other Vendor System with Status of Final Artur Carson MD electronically signed on 12/11/2020 12:42:19 PM with status of Final
== END ==
LOC: HO.CARD 13:00
PROVIDERS: Visit Provider Internal Medicine Medical Oncology
DX: C7A.012 Malignant carcinoid tumor of the ileum (principal); R06.00 Dyspnea, unspecified
CPT/HCPCS: 93306

== ENCOUNTER → 2020-12-24 09:06 | Outpatient (BNVA) | payer OTHER, SELFPAY | PROVIDERS: PCP Internal Medicine; Visit Provider Internal Medicine Gastroenterology | DX: D3A.00 Benign carcinoid tumor of unspecified site (principal); Z12.11 Encounter for screening for malignant neoplasm of colon; R11.0 Nausea | CPT/HCPCS: Q3014 ==

== ENCOUNTER 2021-01-17 14:49 | Outpatient (REF) | payer OTHER, SELFPAY ==
[2021-01-17 15:27] LABS: MANUAL DIFF FLAG NO
[2021-01-17 15:39] LABS: Basophils Absolute Auto 0.1 X10*3/uL (0.0-0.2); Basophils Percent Auto 1.2 % (0-2); Eosinophils Absolute Auto 0.1 X10*3/uL (0.0-0.4); Eosinophils Percent Auto 3.1 % (0-4); Hemoglobin 10.8 g/dl (12.0-16.0); Imm Gran Abs Auto 0.02 X10*3/uL (0.00-0.03); Imm Gran Pct Auto 0.5 % (0.0-0.4); Lymphocytes Absolute Auto 0.8 X10*3/uL (1.2-4.9); Lymphocytes Percent Auto 19.8 % (20-40); Mean Corpuscular HGB Conc 30.9 g/dl (31.0-35.0); Mean Corpuscular Hemoglobin 27.6 pg (27.0-33.0); Mean Corpuscular Volume 89.3 fL (80-98); Mean Platelet Volume 10.3 fL (9.4-12.3); Monocytes Absolute Auto 0.3 X10*3/uL (0.1-1.2); Neutrophils Absolute Auto 2.9 X10*3/uL (2.0-8.3); Neutrophils Percent Auto 67.4 % (45-73); Platelet Count 227 X10*3/uL (160-400); Red Blood Count 3.92 X10*6/uL (4.20-5.50); Red Cell Distribution Width 13.9 % (11.0-16.0); White Blood Count 4.3 X10*3/uL (4.8-10.8)
[2021-01-17 15:53] LABS: Alanine Aminotransferase 11 U/L (0-31); Albumin Level 4.4 g/dL (3.5-5.0); Alkaline Phosphatase 126 U/L (39-117); Anion Gap 12 (12-20); Aspartate Amino Transferase 19 U/L (5-31); Bilirubin Total 0.3 mg/dL (0.0-1.0); Blood Urea Nitrogen 17 mg/dL (9-16); Calcium 9.4 mg/dL (8.4-10.2); Carbon Dioxide 27 mmol/L (22-29); Chloride 108 mmol/L (96-108); Estimated Glomerular Filt Rate 51; Glucose Random 71 mg/dL (60-115); Potassium 4.8 mmol/L (3.3-5.1); Sodium 142 mmol/L (135-145); Total Protein 7.4 g/dL (6.5-8.0)
[2021-01-27 17:26] LABS: Chromogranin A 3533 ng/mL (ADULTS: <311)
== END 2021-01-17 14:50 | disposition home or self-care (01) ==
LOC: HO.LAB 14:49
PROVIDERS: Internal Medicine Medical Oncology; PCP Internal Medicine; Visit Provider Advanced Practice Midwife
DX: E34.0 Carcinoid syndrome (principal)
CPT/HCPCS: 36415; 80053; 85025; 86316

== ENCOUNTER 2021-01-29 12:20 | Emergency (ER) | payer OTHER, SELFPAY ==
--- NOTE | ~2021-01-29 | CT_ITS ---
EXAMINATION: CT ANGIOGRAM OF THE CHEST WITH AND WITHOUT CONTRAST (CT PULMONARY ANGIOGRAM FOR PE) CLINICAL INFORMATION: Reason for Exam h.o cancer, cp/sob, r/o pe COMPARISON: Previous CT of the abdomen and pelvis October 2020 chest x-ray from earlier the same day and CTA of the chest March 2019 TECHNIQUE: Prior to contrast administration, noncontrast localization images were obtained. Subsequently, multidetector volumetric imaging was performed from the thoracic inlet to below the diaphragms following the administration of 65 mL Omnipaque 350 intravenous contrast. No contrast reaction reported Sagittal, coronal, and MIP oblique sagittal reformatted images were obtained on the CT workstation, uploaded to PACS, and reviewed. This CT examination was performed using dose optimization techniques as appropriate, variously including the following: *Automated exposure control *Adjustment of mA and/or kV according to patient size (this includes techniques or standardized protocols for targeted exams where dose is matched to indication/reason for exam; i.e. extremities or head) *Use of iterative reconstruction technique Total exam dose-length product 266 mGy-cm FINDINGS: QUALITY OF STUDY/CONTRAST BOLUS: Satisfactory. PULMONARY ARTERIES: No central or segmental pulmonary emboli. THORACIC AORTA: No aneurysm or dissection. The ascending thoracic aorta is upper normal in size measuring 4 cm. LUNG: There is a 4 mm peripheral or subpleural left lower lobe nodule axial 285 series 7. There is a 2 mm peripheral right lower lobe nodule axial 7. These are unchanged from previous exams. PLEURA: No pleural effusion or pneumothorax. MEDIASTINUM: Upper normal heart size. No pericardial effusion. No hilar or mediastinal lymphadenopathy. No evidence of septal bowing or right heart strain. CHEST WALL/AXILLA: No axillary or internal mammary lymphadenopathy. OSSEOUS STRUCTURES: No acute or suspicious osseous abnormality. UPPER ABDOMEN: There is increased soft tissue adjacent to the head of the pancreas, in the retroperitoneum and at the root of the small bowel mesentery. This is is not completely visualized and difficult to compare with previous CT exam. There is an enhancing and low-attenuation area in the peripheral right lobe of the liver that measures 1.2 cm axial image 52 series 5. Comparison with prior exam is difficult due to difference in the contrast. No reflux of contrast into the hepatic veins to suggest elevated right heart pressures. CT/CT angio chest PE protocol IMPRESSION: No evidence of pulmonary embolism. Stable small bilateral lower lobe pulmonary nodules. Abdominal findings difficult to compare with prior exam. VTE: negative
--- NOTE | ~2021-01-29 | XR_ITS ---
EXAMINATION: XR CHEST CLINICAL INFORMATION: Chest pain COMPARISON: Previous chest x-ray June 2018 TECHNIQUE: Frontal view of the chest was obtained. FINDINGS: No significant abnormality is noted involving the heart, lungs, mediastinum, bony thorax or soft tissues. XR/XR chest 1V IMPRESSION: Unremarkable examination.
[2021-01-29 12:31] VITALS: BP 138/77; PULSE 70; RESP 18; TEMP 36.9; O2SAT 100; BMI 25.2
--- NOTE | 2021-01-29 12:35 | ECG_ITS ---
Test Reason : CHEST PAIN Blood Pressure : / mmHG Vent. Rate : 065 BPM Atrial Rate : 065 BPM P-R Int : 174 ms QRS Dur : 090 ms QT Int : 394 ms P-R-T Axes : 013 -06 -06 degrees QTc Int : 409 ms Normal sinus rhythm T wave abnormality, consider anterior ischemia Abnormal ECG When compared with ECG of 04-MAR-2019 07:18, No significant change was found Referred By: Generic ED Physician Electronically Signed By:JAY CLIFFORD MD
[2021-01-29 13:23] LABS: MANUAL DIFF FLAG NO
[2021-01-29 13:32] LABS: Basophils Percent Auto 0.8 % (0-2); Eosinophils Absolute Auto 0.1 X10*3/uL (0.0-0.4); Eosinophils Percent Auto 2.5 % (0-4); Hematocrit 34.2 % (37-47); Hemoglobin 10.6 g/dl (12.0-16.0); Imm Gran Abs Auto 0.01 X10*3/uL (0.00-0.03); Imm Gran Pct Auto 0.3 % (0.0-0.4); Lymphocytes Absolute Auto 0.8 X10*3/uL (1.2-4.9); Lymphocytes Percent Auto 21.1 % (20-40); Mean Corpuscular Hemoglobin 27.2 pg (27.0-33.0); Mean Corpuscular Volume 87.9 fL (80-98); Mean Platelet Volume 10.1 fL (9.4-12.3); Monocytes Absolute Auto 0.3 X10*3/uL (0.1-1.2); Neutrophils Absolute Auto 2.7 X10*3/uL (2.0-8.3); Neutrophils Percent Auto 68.3 % (45-73); Platelet Count 217 X10*3/uL (160-400); Red Blood Count 3.89 X10*6/uL (4.20-5.50); Red Cell Distribution Width 14.1 % (11.0-16.0)
[2021-01-29 13:50] VITALS: BP 159/87; PULSE 62; RESP 17; TEMP 36.8; O2SAT 98
[2021-01-29 13:54] LABS: Anion Gap 13 (12-20); Blood Urea Nitrogen 21 mg/dL (9-16); Calcium 9.4 mg/dL (8.4-10.2); Carbon Dioxide 26 mmol/L (22-29); Chloride 105 mmol/L (96-108); Creatinine Clr Calc Pharmacy 57.4; Estimated Glomerular Filt Rate > 60; Glucose Random 93 mg/dL (60-115); Potassium 4.8 mmol/L (3.3-5.1); Sodium 139 mmol/L (135-145)
[2021-01-29 13:55] LABS: Troponin-I High Sensitivity < 3.5 ng/L (<3.5-17.0)
[2021-01-29 14:37] LABS: Alanine Aminotransferase 9 U/L (0-31); Albumin Level 4.4 g/dL (3.5-5.0); Alkaline Phosphatase 110 U/L (39-117); Aspartate Amino Transferase 21 U/L (5-31); Bilirubin Direct 0.2 mg/dL (0.0-0.5); Bilirubin Total 0.3 mg/dL (0.0-1.0); Magnesium 2.2 mg/dL (1.6-2.6); Total Protein 7.3 g/dL (6.5-8.0)
[2021-01-29 15:01] VITALS: BP 167/91; PULSE 58; RESP 18; TEMP 36.8; O2SAT 100
[2021-01-29 15:10] LABS: Prothrombin Time 12.4 SEC (10.8-13.0)
[2021-01-29 15:14] LABS: D Dimer < 200 NG/ML
--- NOTE | 2021-01-29 15:24 | ED_ITS ---
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 Patient tells me that she has chronic nausea and does use Zofran 8 mg sublingual as needed. She also has carcinoid syndrome and has frequent flushing and sweating symptoms. These have been increasing and she is being followed by oncologist at [facility]. Today when she stood up she felt chest discomfort and felt like she might pass out. This lasted approximately 1 hour and improved with rest. While in the ER she is feeling okay. She denies any shortness of breath, fevers, chills or cough. No leg swelling or pain Related Data Home Medications Medication Instructions Recorded Confirmed carvedilol 6.25 mg tablet 6.25 mg PO BID 08/16/20 12/24/20 telotristat etiprate 250 mg tablet 250 mg PO BID tab 08/16/20 12/24/20 ondansetron HCl 8 mg tablet 8 mg PO Q8H PRN 10/15/20 12/24/20 hydrocortisone 2.5 % topical cream appl TOPICAL BID 12/24/20 12/24/20 Previous Rx's Medication Instructions Recorded venlafaxine 75 mg capsule,extended 75 mg PO DAILY 90 Days #90 cap 07/09/20 release 24 hr omeprazole 10 mg capsule,delayed 10 mg PO BID #180 cap 11/12/20 release diphenoxylate-atropine 2.5 1 tab PO BID PRN 30 Days #40 tab 12/03/20 mg-0.025 mg tablet Allergies Allergy/AdvReac Type Severity Reaction Status Date / Time oxycodone Allergy Intermediate hives Verified 01/29/21 12:31 Review of Systems Review of Systems: Yes all other systems are reviewed and are negative Constitutional: Constitutional: Reports no additional constitutional complaints, Denies body ache(s), Denies chills, Denies fever(s), Denies headache(s) and Denies weakness Eyes: Eyes: Reports no additional eye complaints and Denies change in vision ENT: Reports system reviewed and no additional complaints, except as documented, Denies dizziness, Denies headache(s), Denies nasal congestion, Denies nasal discharge and Denies neck pain Cardiovascular: Cardiovascular: Reports no additional cardiovascular complaints, Reports chest pain, Denies leg edema, Reports lightheadedness and Denies dyspnea Respiratory: Respiratory: Reports no additional respiratory complaints, Denies cough and Denies dyspnea Gastrointestinal: Gastrointestinal: Reports no additional gastrointestinal complaints, Denies abdominal pain, Denies diarrhea, Reports nausea ( chronic) and Denies vomiting Genitourinary: Genitourinary: Reports no additional female genitourinary complaints and Denies urinary incontinence Musculoskeletal: Musculoskeletal: Reports no additional musculoskeletal complaints, Denies back pain, Denies arthralgias, Denies joint swelling, Denies neck pain, Denies numbness and Denies tingling Integumentary/Breasts: Skin/Breast: Reports system reviewed and no additional complaints, except as docu and Denies rash Neurologic: Reports system reviewed and no additional complaints, except as documented, Denies Abnormal speech present, Denies dizziness, Denies headache(s), Denies numbness, Denies tingling and Denies weakness PMFSH Past Medical History Source: old records reviewed and nursing notes reviewed Medical History Carcinoid tumor Depression Encounter for Medicare annual wellness exam History of headache HTN (hypertension) Hx of left bundle branch block Lab test negative for COVID-19 virus Liver metastasis Malignant carcinoid tumor of ileum Surgical History H/O colonoscopy History of History of endometrial ablation History of esophagogastroduodenoscopy (EGD) History of right hemicolectomy (~01/2018) Hx of dilation and curettage Hx of eye surgery Hx of tubal ligation Family History Family History Brother History of throat cancer Maternal Aunt History of colon cancer Mother Hx of completed stroke Father No problems noted. Social History Social History Household Members: Spouse and Children Are you a primary direct care provider to a significant other at home: No Do you presently have visiting nurse or other home services: No Alcohol intake: never Patient Tobacco Use Status: Never used Tobacco Use of substances other than those prescribed or required for medical reasons: No Advance Directives: Yes Advance Directives Information Provided: No Advance Directives on File: No Patient : No Current occupational status: disabled Physical Exam Vital Signs: Vital Signs: Last Vital Signs Temp 98.3 F 01/29/21 15:01 Pulse 58 01/29/21 15:01 Resp 18 01/29/21 15:01 BP 167/91 H 01/29/21 15:01 Pulse Ox 100 01/29/21 15:01 Body Mass Index 25.2 Const: General: cooperative, healthy appearing, comfortable and no acute distress Orientation/consciousness: patient oriented x3 Limitations: no limitations HENMT: Head: Yes normal to inspection Ears: hearing grossly normal bilaterally General nose exam: Normal external nose present Face and sinus: Yes normal facial exam Mouth: Normal oral and palatal mucosa present Throat: Yes posterior oropharynx normal Eyes: General: appearance normal, both eyes and all related structures Pupils: Equal, round and reactive pupils present Neck: Neck: Yes normal visual inspection Chest: Chest palpation & inspection: normal inspection of the chest Resp: Effort & Inspection: normal respiratory effort Auscultation: clear to auscultation bilaterally Cardio: Rate: regular rate Rhythm: regular rhythm Peripheral pulses: Peripheral pulses 2+ throughout GI: Inspection: Yes normal to inspection Palpation (GI): Soft to palpation and nontender Auscultation: normal bowel sounds Back/Spine/Pelvis: Thoracic/Lumbar Spine: thoracic and lumbar spine normal to inspection Skin: General skin exam: no rashes or lesions noted Neuro: General: patient oriented x3, no focal motor deficits and normal sensation to monofilament Cranial nerves: Yes Equal, round and reactive pupil s present Cognition (Neuro): normal cognition Speech: No Abnormal speech present Gait exam (Neuro): Normal gait present Motor exam (neuro): 5/5 motor strength present throughout Extrem: General: Yes normal to inspection, Yes no pedal edema and Yes no calf tenderness Course Course Course Narrative: 55-year-old female here with chronic nausea, hot flashes but with episode of near syncope and chest pain which occurred while standing this morning. Symptoms are feeling improved at this time. Will check labs including troponin, EKG and chest x-ray. -1415- EKG shows T-wave inversions in leads V1 through V 4. initial troponin negative. Plan for repeat 3 hour troponin. No previous EKGs to compare to. The patient does have a history of a left bundle branch block. She had an echocardiogram 12/10/2020 which showed normal LV function, mild mitral valve regurg. due to history of malignancy concern for PE. Will check CTA. 1650-Sign out to Alis Kelly pending above. MDM - Chest Pain MDM Narrative Medical decision making narrative: ACS, PE Medical Records Data Attestation: I reviewed the patient's medical records. Lab Data Attestation: I reviewed the patient's lab results. Result diagrams: 01/29/21 13:18 01/29/21 13:18 Labs: Lab Results 01/29/21 01/29/21 01/29/21 Range/Units 13:18 13:18 13:18 WBC 4.0 L (4.8-10.8) X10*3/uL RBC 3.89 L (4.20-5.50) X10*6/uL Hgb 10.6 L (12.0-16.0) g/dl Hct 34.2 L (37-47) % MCV 87.9 (80-98) fL MCH 27.2 (27.0-33.0) pg MCHC 31.0 (31.0-35.0) g/dl RDW 14.1 (11.0-16.0) % Plt Count 217 (160-400) X10*3/uL MPV 10.1 (9.4-12.3) fL Immature Gran % (Auto) 0.3 (0.0-0.4) % Neut % (Auto) 68.3 (45-73) % Lymph % (Auto) 21.1 (20-40) % [place] % (Auto) 7.0 (2-11) % Eos % (Auto) 2.5 (0-4) % Baso % (Auto) 0.8 (0-2) % Lymph # (Auto) 0.8 L (1.2-4.9) X10*3/uL [place] # (Auto) 0.3 (0.1-1.2) X10*3/uL Eos # (Auto) 0.1 (0.0-0.4) X10*3/uL Baso # (Auto) 0.0 (0.0-0.2) X10*3/uL Abs Immat Gran (auto) 0.01 (0.00-0.03) X10*3/uL Absolute Neuts (auto) 2.7 (2.0-8.3) X10*3/uL Absolute Nucleated RBC 0.000 (0.0-0.012) X10*3/uL Nucleated RBC % (auto) 0.0 (0.0-0.2) /100WBC PT (10.8-13.0) SEC INR (0.9-1.1) D-Dimer NG/ML Sodium 139 (135-145) mmol/L Potassium 4.8 (3.3-5.1) mmol/L Chloride 105 (96-108) mmol/L Carbon Dioxide 26 (22-29) mmol/L Anion Gap 13 (12-20) BUN 21 H (9-16) mg/dL Creatinine 0.94 (0.5-1.4) mg/dL Estim Creat Clear Calc 57.4 Estimated GFR > 60 Random Glucose 93 (60-115) mg/dL Calcium 9.4 (8.4-10.2) mg/dL Magnesium 2.2 (1.6-2.6) mg/dL Total Bilirubin 0.3 (0.0-1.0) mg/dL Direct Bilirubin 0.2 (0.0-0.5) mg/dL AST 21 (5-31) U/L ALT 9 (0-31) U/L Alkaline Phosphatase 110 (39-117) U/L Troponin I High Sens < 3.5 (<3.5-17.0) ng/L Total Protein 7.3 (6.5-8.0) g/dL Albumin 4.4 (3.5-5.0) g/dL 01/29/21 01/29/21 Range/Units 15:00 15:00 WBC (4.8-10.8) X10*3/uL RBC (4.20-5.50) X10*6/uL Hgb (12.0-16.0) g/dl Hct (37-47) % MCV (80-98) fL MCH (27.0-33.0) pg MCHC (31.0-35.0) g/dl RDW (11.0-16.0) % Plt Count (160-400) X10*3/uL MPV (9.4-12.3) fL Immature Gran % (Auto) (0.0-0.4) % Neut % (Auto) (45-73) % Lymph % (Auto) (20-40) % [place] % (Auto) (2-11) % Eos % (Auto) (0-4) % Baso % (Auto) (0-2) % Lymph # (Auto) (1.2-4.9) X10*3/uL [place] # (Auto) (0.1-1.2) X10*3/uL Eos # (Auto) (0.0-0.4) X10*3/uL Baso # (Auto) (0.0-0.2) X10*3/uL Abs Immat Gran (auto) (0.00-0.03) X10*3/uL Absolute Neuts (auto) (2.0-8.3) X10*3/uL Absolute Nucleated RBC (0.0-0.012) X10*3/uL Nucleated RBC % (auto) (0.0-0.2) /100WBC PT 12.4 (10.8-13.0) SEC INR 1.0 (0.9-1.1) D-Dimer < 200 NG/ML Sodium (135-145) mmol/L Potassium (3.3-5.1) mmol/L Chloride (96-108) mmol/L Carbon Dioxide (22-29) mmol/L Anion Gap (12-20) BUN (9-16) mg/dL Creatinine (0.5-1.4) mg/dL Estim Creat Clear Calc Estimated GFR Random Glucose (60-115) mg/dL Calcium (8.4-10.2) mg/dL Magnesium (1.6-2.6) mg/dL Total Bilirubin (0.0-1.0) mg/dL Direct Bilirubin (0.0-0.5) mg/dL AST (5-31) U/L ALT (0-31) U/L Alkaline Phosphatase (39-117) U/L Troponin I High Sens < 3.5 (<3.5-17.0) ng/L Total Protein (6.5-8.0) g/dL Albumin (3.5-5.0) g/dL Imaging Data Chest x-ray: Attestation: I personally reviewed and interpreted this imaging study as follows: Radiologist's impression: EXAMINATION: XR CHEST CLINICAL INFORMATION: Chest pain COMPARISON: Previous chest x-ray June 2018 TECHNIQUE: Frontal view of the chest was obtained. FINDINGS: No significant abnormality is noted involving the heart, lungs, mediastinum, bony thorax or soft tissues. XR/XR chest 1V IMPRESSION: Unremarkable examination. ECG Data ECG #1: Attestation: I personally reviewed and interpreted this ECG as follows: ECG interpretation date: 01/29/21 ECG interpretation time: 13:12 Interpretation: normal sinus rhythm, T-wave inversions leads V1 through V4, normal VT, normal QRS, normal QT Discharge Plan Discharge Prescriptions: No Action venlafaxine 75 mg capsule,extended release 24hr 75 mg PO DAILY 90 Days Qty: 90 RF: 3 omeprazole 10 mg capsule,delayed release(DR/EC) 10 mg PO BID Qty: 180 RF: 0 carvedilol 6.25 mg tablet 6.25 mg PO BID RF: 0 Xermelo 250 mg tablet 250 mg PO BID RF: 0 hydrocortisone 2.5 % cream topical BID RF: 0 ondansetron HCl 8 mg tablet 8 mg PO Q8H PRN (Reason: nausea and vomiting) RF: 0 diphenoxylate-atropine [Lomotil] 2.5-0.025 mg tablet 1 tab PO BID PRN (Reason: diarrhea) 30 Days Qty: 40 RF: 0
[2021-01-29 15:34] LABS: Troponin-I High Sensitivity < 3.5 ng/L (<3.5-17.0)
[2021-01-29] MEDS: iohexoL 350 MG/ML 100 ML INFUS..BTL 85 ML IV (15:55)
[2021-01-29 16:56] VITALS: BP 152/82; PULSE 57; RESP 16; O2SAT 99
== END 2021-01-29 17:51 | disposition home or self-care (01) ==
PROVIDERS: Nurse Practitioner Family; Emergency Provider Emergency Medicine Emergency Medical Services; PCP Internal Medicine
DX: R07.89 Other chest pain (principal); R11.0 Nausea; I10 Essential (primary) hypertension; C7A.012 Malignant carcinoid tumor of the ileum; C7B.02 Secondary carcinoid tumors of liver; E34.0 Carcinoid syndrome; F41.9 Anxiety disorder, unspecified
CPT/HCPCS: 36415; 71045; 71275; 80048; 80076; 83735; 84484; 85025; 85379; 85610; 93005; 99285; Q9967

== ENCOUNTER 2021-02-05 14:24 | Outpatient (REF) | payer OTHER, SELFPAY ==
[2021-02-05 14:47] LABS: MANUAL DIFF FLAG NO
[2021-02-05 14:51] LABS: Basophils Percent Auto 0.7 % (0-2); Eosinophils Absolute Auto 0.1 X10*3/uL (0.0-0.4); Eosinophils Percent Auto 2.2 % (0-4); Hematocrit 34.6 % (37-47); Hemoglobin 10.8 g/dl (12.0-16.0); Imm Gran Abs Auto 0.01 X10*3/uL (0.00-0.03); Imm Gran Pct Auto 0.2 % (0.0-0.4); Lymphocytes Absolute Auto 0.9 X10*3/uL (1.2-4.9); Lymphocytes Percent Auto 19.7 % (20-40); Mean Corpuscular HGB Conc 31.2 g/dl (31.0-35.0); Mean Corpuscular Hemoglobin 27.4 pg (27.0-33.0); Mean Corpuscular Volume 87.8 fL (80-98); Mean Platelet Volume 9.9 fL (9.4-12.3); Monocytes Absolute Auto 0.3 X10*3/uL (0.1-1.2); Monocytes Percent Auto 7.4 % (2-11); Neutrophils Absolute Auto 3.1 X10*3/uL (2.0-8.3); Neutrophils Percent Auto 69.8 % (45-73); Platelet Count 233 X10*3/uL (160-400); Red Blood Count 3.94 X10*6/uL (4.20-5.50); White Blood Count 4.5 X10*3/uL (4.8-10.8)
[2021-02-05 15:11] LABS: Alanine Aminotransferase 10 U/L (0-31); Albumin Level 4.5 g/dL (3.5-5.0); Alkaline Phosphatase 117 U/L (39-117); Anion Gap 14 (12-20); Aspartate Amino Transferase 21 U/L (5-31); Bilirubin Total 0.5 mg/dL (0.0-1.0); Blood Urea Nitrogen 16 mg/dL (9-16); Calcium 9.7 mg/dL (8.4-10.2); Carbon Dioxide 26 mmol/L (22-29); Chloride 104 mmol/L (96-108); Estimated Glomerular Filt Rate 50; Glucose Random 95 mg/dL (60-115); Potassium 4.6 mmol/L (3.3-5.1); Sodium 139 mmol/L (135-145); Total Protein 7.6 g/dL (6.5-8.0)
[2021-02-11 16:51] LABS: Chromogranin A 5477 ng/mL (ADULTS: <311)
== END 2021-02-05 14:25 | disposition home or self-care (01) ==
LOC: HO.LAB 14:24
PROVIDERS: PCP Internal Medicine; Visit Provider Internal Medicine Medical Oncology
DX: R07.9 Chest pain, unspecified (principal); R94.31 Abnormal electrocardiogram [ECG] [EKG]; I10 Essential (primary) hypertension; E34.0 Carcinoid syndrome; Z79.899 Other long term (current) drug therapy
CPT/HCPCS: 36415; 80053; 85025; 86316; 93005; 99202

== ENCOUNTER → 2021-03-05 09:08 | Outpatient (REF) | payer OTHER, SELFPAY ==
[2021-03-05 10:34] LABS: MANUAL DIFF FLAG NO
[2021-03-05 10:44] LABS: Basophils Percent Auto 0.7 % (0-2); Eosinophils Absolute Auto 0.1 X10*3/uL (0.0-0.4); Eosinophils Percent Auto 1.4 % (0-4); Hematocrit 35.3 % (37-47); Hemoglobin 10.5 g/dl (12.0-16.0); Imm Gran Abs Auto 0.01 X10*3/uL (0.00-0.03); Imm Gran Pct Auto 0.2 % (0.0-0.4); Lymphocytes Absolute Auto 0.7 X10*3/uL (1.2-4.9); Lymphocytes Percent Auto 16.2 % (20-40); Mean Corpuscular HGB Conc 29.7 g/dl (31.0-35.0); Mean Corpuscular Hemoglobin 26.7 pg (27.0-33.0); Mean Corpuscular Volume 89.8 fL (80-98); Mean Platelet Volume 10.7 fL (9.4-12.3); Monocytes Absolute Auto 0.3 X10*3/uL (0.1-1.2); Monocytes Percent Auto 6.8 % (2-11); Neutrophils Absolute Auto 3.3 X10*3/uL (2.0-8.3); Neutrophils Percent Auto 74.7 % (45-73); Platelet Count 229 X10*3/uL (160-400); Red Blood Count 3.93 X10*6/uL (4.20-5.50); Red Cell Distribution Width 14.6 % (11.0-16.0); White Blood Count 4.4 X10*3/uL (4.8-10.8)
--- NOTE | 2021-03-05 11:06 | CA_ITS ---
Acquisition Time: 2021-03-05 11:05:26 Total Exercise Time: 00:05:00 Test Indications: CP Medications: SEE CHART Protocol: CORINNE Max HR: 155 BPM 95% of Pred: 163 BPM Max BP: 152/092 mmHG Max Work Load: 7.0 METS Exercise stress test with exercise 5 min of Corinne protocol with report of anterior chest pressure and a sharp pain with nausea, mild shortness of breath, with development of rate related LBBB at 43 sec of exercise until 2 minutes of recovery, with isolated PACs, with normotensive response to exercise, with nondiagnostic EKG for ischemia due to LBBB. In recovery her chest discomfort resolved with rest. Echo images obtained at rest and immediately post peak exercise. Definity contrast used. Test reviewed with Dr Carson. Referred By: Edel Leon Overread By: EDEL LEON
[2021-03-05 11:14] LABS: Alanine Aminotransferase 19 U/L (0-31); Albumin Level 4.5 g/dL (3.5-5.0); Alkaline Phosphatase 101 U/L (39-117); Anion Gap 14 (12-20); Aspartate Amino Transferase 27 U/L (5-31); Bilirubin Total 0.3 mg/dL (0.0-1.0); Blood Urea Nitrogen 21 mg/dL (9-16); Calcium 9.4 mg/dL (8.4-10.2); Carbon Dioxide 26 mmol/L (22-29); Chloride 105 mmol/L (96-108); Estimated Glomerular Filt Rate 60; Glucose Random 93 mg/dL (60-115); Sodium 140 mmol/L (135-145); Total Protein 7.4 g/dL (6.5-8.0)
[2021-03-09 13:26] LABS: Chromogranin A 6380 ng/mL (ADULTS: <311)
== END ==
LOC: HO.CARD 09:08
PROVIDERS: Absent Provider Internal Medicine Medical Oncology; PCP Internal Medicine; Visit Provider Nurse Practitioner Family
DX: R07.9 Chest pain, unspecified (principal); E34.0 Carcinoid syndrome; R94.31 Abnormal electrocardiogram [ECG] [EKG]
CPT/HCPCS: 36415; 80053; 85025; 86316; 93350; Q9957

== ENCOUNTER → 2021-03-12 14:41 | Outpatient (BNVA) | payer OTHER, SELFPAY | PROVIDERS: PCP Internal Medicine; Referring Provider Internal Medicine; Visit Provider Nurse Practitioner Family | DX: R07.9 Chest pain, unspecified (principal); R94.31 Abnormal electrocardiogram [ECG] [EKG]; I15.2 Hypertension secondary to endocrine disorders; R00.2 Palpitations; I47.1 Supraventricular tachycardia; Z86.79 Personal history of other diseases of the circulatory system | CPT/HCPCS: 99212 ==

== ENCOUNTER 2021-03-21 10:25 | Outpatient (REF) | payer OTHER, SELFPAY ==
[2021-03-21 11:18] LABS: MANUAL DIFF FLAG NO
[2021-03-21 11:26] LABS: Basophils Percent Auto 0.8 % (0-2); Eosinophils Absolute Auto 0.1 X10*3/uL (0.0-0.4); Hematocrit 33.4 % (37-47); Hemoglobin 10.3 g/dl (12.0-16.0); Imm Gran Abs Auto 0.01 X10*3/uL (0.00-0.03); Imm Gran Pct Auto 0.3 % (0.0-0.4); Lymphocytes Absolute Auto 0.8 X10*3/uL (1.2-4.9); Lymphocytes Percent Auto 21.2 % (20-40); Mean Corpuscular HGB Conc 30.8 g/dl (31.0-35.0); Mean Corpuscular Volume 87.7 fL (80-98); Mean Platelet Volume 10.1 fL (9.4-12.3); Monocytes Absolute Auto 0.3 X10*3/uL (0.1-1.2); Monocytes Percent Auto 7.4 % (2-11); Neutrophils Absolute Auto 2.7 X10*3/uL (2.0-8.3); Neutrophils Percent Auto 68.3 % (45-73); Platelet Count 204 X10*3/uL (160-400); Red Blood Count 3.81 X10*6/uL (4.20-5.50); Red Cell Distribution Width 13.9 % (11.0-16.0); White Blood Count 3.9 X10*3/uL (4.8-10.8)
[2021-03-21 11:54] LABS: Alanine Aminotransferase 12 U/L (0-31); Albumin Level 4.3 g/dL (3.5-5.0); Alkaline Phosphatase 99 U/L (39-117); Anion Gap 12 (12-20); Aspartate Amino Transferase 15 U/L (5-31); Bilirubin Total 0.4 mg/dL (0.0-1.0); Blood Urea Nitrogen 15 mg/dL (9-16); Calcium 9.3 mg/dL (8.4-10.2); Carbon Dioxide 28 mmol/L (22-29); Chloride 105 mmol/L (96-108); Estimated Glomerular Filt Rate > 60; Glucose Random 101 mg/dL (60-115); Potassium 4.4 mmol/L (3.3-5.1); Sodium 141 mmol/L (135-145); Total Protein 7.1 g/dL (6.5-8.0)
[2021-03-30 16:42] LABS: Chromogranin A 4128 ng/mL (ADULTS: <311)
== END 2021-03-21 10:26 | disposition home or self-care (01) ==
LOC: HO.LAB 10:25
PROVIDERS: Absent Provider Nurse Practitioner Family; PCP Internal Medicine; Visit Provider Internal Medicine Medical Oncology
DX: E34.0 Carcinoid syndrome (principal)
CPT/HCPCS: 36415; 80053; 85025; 86316

== ENCOUNTER 2021-04-11 12:08 | Outpatient (REF) | payer OTHER, SELFPAY ==
--- NOTE | ~2021-04-11 | CT_ITS ---
EXAMINATION: CT ABDOMEN AND PELVIS WITH CONTRAST CLINICAL INFORMATION: Carcinoid tumor. Diarrhea. COMPARISON: Previous CT of the abdomen and pelvis most recent October 2020 TECHNIQUE: Multidetector volumetric images were obtained from the superior aspect of the liver through the pubic symphysis following administration 85 mL of Omnipaque 350 intravenous contrast. Sagittal and coronal reformatted images were obtained on the technologist's workstation. Oral contrast: Yes. This CT examination was performed using dose optimization techniques as appropriate, variously including the following: *Automated exposure control *Adjustment of mA and/or kV according to patient size (this includes techniques or standardized protocols for targeted exams where dose is matched to indication/reason for exam; i.e. extremities or head) *Use of iterative reconstruction technique DLP: 372 mGy-cm FINDINGS: LUNG BASES: There is a 3 mm right lower lobe pulmonary nodule axial image 1. This is unchanged. LIVER, GALLBLADDER, AND BILIARY TREE: There is interval increase in size in the low-attenuation lesion in the peripheral right lobe of the liver. This measures 2.1 x 2.3 cm axial image 16 series 3 compared to 1.5 cm on previous exam. There is more inferior linear low attenuation and capsular retraction that appears unchanged. The gallbladder is normal. There is no biliary duct dilatation. PANCREAS: Unremarkable. SPLEEN: Unremarkable. ADRENAL GLANDS: Unremarkable. KIDNEYS AND URETERS: The kidneys are normal in size, shape, and attenuation. No hydronephrosis, hydroureter, or calculi seen. No perinephric stranding. BLADDER: Unremarkable. GASTROINTESTINAL TRACT: There is question of mild bowel wall thickening of the terminal ileum/cecum. The appendix is not identified and may have been removed. The small and large bowel is otherwise unremarkable. The stomach is unremarkable. ABDOMINAL WALL: No significant hernia is appreciated. There are subcutaneous nodules in both buttocks, likely related to subcutaneous injections. LYMPH NODES: Retroperitoneal lymphadenopathy does not appear significantly changed most recent exam but is gradually increasing compared to remote older exams. There are enlarged retroperitoneal left periaortic lymph nodes. The largest lymph node is at the level of the left renal vein and measures 1.5 x 2 cm and does not appear appreciably changed. There are smaller more inferior nodes that appear slightly increased in size, for example left periaortic lymph node measuring 0.8 x 1.2 cm axial image 33 series 3 compared to 0.6 x 1 cm axial image 33 series 03 October 2020 exam and more inferior left retroperitoneal lymph node measuring 0.7 x 1.1 cm axial image 36 series 3 compared to 0.7 x 1 cm axial image 36 series 03 October 2020. There is an enlarged lymph node adjacent to the left diaphragmatic crura. This measures 0.9 x 1.5 cm axial image 27 series 3 and is slightly increased in size from 1 x 1.3 cm axial image 27 series 03 October 2020 exam. There is an enlarged lymph node at the root of the small bowel mesentery narrowing the SMV. This measures 1.9 x 2.4 cm axial image 35 series 3 compared to 1.6 x 2.2 cm axial image 35 series 03 October 2020. VASCULAR: Narrowed SMV from a soft tissue mass in the root of the small bowel mesentery. PELVIC VISCERA: Unremarkable. OSSEOUS STRUCTURES: There is increased sclerosis of the S1 vertebral body. This is not appreciably changed from the most recent exam October 2020, however, is gradually increasing compared to older exams. CT/CT abdomen pelvis w con IMPRESSION: Interval increase in size in dominant liver lesion. Slight interval increase in size in retroperitoneal and small bowel mesentery lymphadenopathy. Question wall thickening of the terminal ileum/base of the cecum. Stable appearance to the sclerotic lesion in the S1 vertebral body from the most recent exam October 2020.
[2021-04-11] MEDS: iohexoL 350 MG/ML 100 ML INFUS..BTL 85 ML IV (14:54)
[2021-04-11] MEDS: Barium Sulfate Oral (Vanilla) 450 ML ORAL.SUSP 900 ML PO (14:58)
== END 2021-04-11 12:09 | disposition home or self-care (01) ==
LOC: HO.CT 12:08
PROVIDERS: Visit Provider Internal Medicine Medical Oncology
DX: E34.0 Carcinoid syndrome (principal); R19.7 Diarrhea, unspecified
CPT/HCPCS: 74177; Q9967

== ENCOUNTER 2021-04-17 08:52 | Outpatient (REF) | payer OTHER, SELFPAY ==
--- NOTE | ~2021-04-17 | MM_ITS ---
EXAMINATION: MM SCREENING DIGITAL BREAST TOMOSYNTHESIS, BILATERAL CLINICAL INFORMATION: Screening. Asymptomatic. The lifetime risk of breast cancer based on the Tyrer-Cuzick Model is 5%. COMPARISON: Mammography: 08/18/2017, 08/07/2015, 06/14/2014 TECHNIQUE: Digital breast tomosynthesis is performed in both the craniocaudal and mediolateral oblique views along with computer-aided detection (CAD). Synthesized 2D images are generated from the tomosynthesis. Additional left CC view is provided. FINDINGS: There are scattered areas of fibroglandular density (ACR BI-RADS breast composition Category b). Parenchymal pattern is similar to prior studies. There is no developing density or interval mass or architectural abnormality. There are scattered bilateral vascular calcifications, along with bilateral symmetric superimposed digital processing artifact on the synthesized images. No suspicious calcifications. The axilla and skin contours are unremarkable. MM/MM tomosynthesis screening BI IMPRESSION: There are no significant changes from prior study. ASSESSMENT: BI-RADS 2: Benign RECOMMENDATION: Routine annual mammography screening. This patient's information was entered into a reminder system with a target due date for their next mammogram.
== END 2021-04-17 08:53 | disposition home or self-care (01) ==
LOC: HO.MAMMO 08:52
PROVIDERS: PCP Internal Medicine; Visit Provider Internal Medicine
DX: Z12.31 Encounter for screening mammogram for malignant neoplasm of breast (principal)
CPT/HCPCS: 77063; 77067

== ENCOUNTER → 2021-05-02 08:49 | Outpatient (BNVA) | payer OTHER, SELFPAY | PROVIDERS: PCP Internal Medicine; Visit Provider Internal Medicine Gastroenterology | DX: Z13.89 Encounter for screening for other disorder (principal) | CPT/HCPCS: Q3014 ==

== ENCOUNTER → 2021-05-16 13:46 | Outpatient (BNVA) | payer OTHER, SELFPAY | PROVIDERS: PCP Internal Medicine; Referring Provider Internal Medicine; Visit Provider Internal Medicine Cardiovascular Disease | DX: R00.2 Palpitations (principal); R94.39 Abnormal result of other cardiovascular function study; Z86.79 Personal history of other diseases of the circulatory system | CPT/HCPCS: 99212 ==

== ENCOUNTER 2021-06-21 13:34 | Outpatient (REF) | payer OTHER, SELFPAY ==
[2021-06-21 13:56] LABS: MANUAL DIFF FLAG NO
[2021-06-21 14:05] LABS: Basophils Percent Auto 0.7 % (0-2); Eosinophils Absolute Auto 0.1 X10*3/uL (0.0-0.4); Eosinophils Percent Auto 1.2 % (0-4); Hematocrit 35.2 % (37.0-47.0); Hemoglobin 11.1 g/dl (12.0-16.0); Imm Gran Abs Auto 0.01 X10*3/uL (0.00-0.03); Imm Gran Pct Auto 0.2 % (0.0-0.4); Lymphocytes Absolute Auto 0.4 X10*3/uL (1.2-4.9); Lymphocytes Percent Auto 8.8 % (20-40); Mean Corpuscular HGB Conc 31.5 g/dl (31.0-35.0); Mean Corpuscular Hemoglobin 27.8 pg (27.0-33.0); Mean Platelet Volume 10.8 fL (9.4-12.3); Monocytes Absolute Auto 0.4 X10*3/uL (0.1-1.2); Monocytes Percent Auto 8.8 % (2-11); Neutrophils Absolute Auto 3.4 x10*3/uL (2.0-8.3); Neutrophils Percent Auto 80.3 % (45-73); Platelet Count 153 X10*3/uL (160-400); Red Cell Distribution Width 14.2 % (11.0-16.0); White Blood Count 4.2 X10*3/uL (4.8-10.8)
[2021-06-21 14:29] LABS: Anion Gap 12 (12-20); Blood Urea Nitrogen 15 mg/dL (9-16); Calcium 9.3 mg/dL (8.4-10.2); Carbon Dioxide 28 mmol/L (22-29); Chloride 104 mmol/L (96-108); Estimated Glomerular Filt Rate 51; Glucose Random 112 mg/dL (60-115); Sodium 140 mmol/L (135-145)
[2021-06-21 14:32] LABS: Alanine Aminotransferase 16 U/L (0-31); Albumin Level 4.7 g/dL (3.5-5.0); Alkaline Phosphatase 105 U/L (39-117); Anion Gap 13 (12-20); Aspartate Amino Transferase 18 U/L (5-31); Bilirubin Total 0.4 mg/dL (0.0-1.0); Blood Urea Nitrogen 15 mg/dL (9-16); Calcium 9.1 mg/dL (8.4-10.2); Carbon Dioxide 27 mmol/L (22-29); Chloride 104 mmol/L (96-108); Estimated Glomerular Filt Rate 51; Glucose Random 114 mg/dL (60-115); Magnesium 1.9 mg/dL (1.6-2.6); Potassium 3.9 mmol/L (3.3-5.1); Sodium 140 mmol/L (135-145); Total Protein 7.5 g/dL (6.5-8.0)
[2021-06-29 22:02] LABS: Chromogranin A 15050 ng/mL (ADULTS: <311)
== END 2021-06-21 13:35 | disposition home or self-care (01) ==
LOC: HO.LAB 13:34
PROVIDERS: Nurse Practitioner Family; PCP Internal Medicine; Visit Provider Internal Medicine Medical Oncology
DX: C7A.012 Malignant carcinoid tumor of the ileum (principal); D72.819 Decreased white blood cell count, unspecified; I10 Essential (primary) hypertension; R10.9 Unspecified abdominal pain
CPT/HCPCS: 36415; 80048; 80053; 83735; 85025; 86316

== ENCOUNTER 2021-08-21 08:41 | Outpatient (REF) | payer OTHER, SELFPAY ==
[2021-08-21 08:53] LABS: MANUAL DIFF FLAG NO
[2021-08-21 09:12] LABS: Basophils Percent Auto 0.6 % (0-2); Eosinophils Absolute Auto 0.2 X10*3/uL (0.0-0.4); Eosinophils Percent Auto 5.1 % (0-4); Hematocrit 39.4 % (37.0-47.0); Hemoglobin 12.2 g/dl (12.0-16.0); Imm Gran Abs Auto 0.01 X10*3/uL (0.00-0.03); Imm Gran Pct Auto 0.3 % (0.0-0.4); Lymphocytes Absolute Auto 0.2 X10*3/uL (1.2-4.9); Lymphocytes Percent Auto 6.3 % (20-40); Mean Corpuscular Hemoglobin 27.8 pg (27.0-33.0); Mean Corpuscular Volume 89.7 fL (80.0-98.0); Monocytes Absolute Auto 0.3 X10*3/uL (0.1-1.2); Monocytes Percent Auto 9.9 % (2-11); Neutrophils Absolute Auto 2.6 x10*3/uL (2.0-8.3); Neutrophils Percent Auto 77.8 % (45-73); Platelet Count 171 X10*3/uL (160-400); Red Blood Count 4.39 X10*6/uL (4.20-5.50); Red Cell Distribution Width 13.9 % (11.0-16.0); White Blood Count 3.3 X10*3/uL (4.8-10.8)
[2021-08-26 15:55] LABS: Chromogranin A 7526 ng/mL (ADULTS: <311)
== END 2021-08-21 08:42 | disposition home or self-care (01) ==
LOC: HO.LAB 08:41
PROVIDERS: PCP Internal Medicine; Visit Provider Internal Medicine Medical Oncology
DX: C7A.012 Malignant carcinoid tumor of the ileum (principal)
CPT/HCPCS: 36415; 85025; 86316

== ENCOUNTER 2021-09-04 12:07 | Outpatient (REF) | payer OTHER, SELFPAY ==
[2021-09-04 14:05] LABS: Anion Gap 11 (12-20); Blood Urea Nitrogen 13 mg/dL (9-16); Calcium 9.5 mg/dL (8.4-10.2); Carbon Dioxide 30 mmol/L (22-29); Chloride 106 mmol/L (96-108); Estimated Glomerular Filt Rate 42; Glucose Random 95 mg/dL (60-115); Potassium 4.2 mmol/L (3.3-5.1); Sodium 143 mmol/L (135-145)
== END 2021-09-04 12:08 | disposition home or self-care (01) ==
LOC: HO.LAB 12:07
PROVIDERS: PCP Internal Medicine; Visit Provider Internal Medicine Medical Oncology
DX: E34.0 Carcinoid syndrome (principal)
CPT/HCPCS: 36415; 80048

== ENCOUNTER 2021-09-05 06:48 | Outpatient (REF) | payer OTHER, SELFPAY ==
--- NOTE | ~2021-09-05 | CT_ITS ---
EXAMINATION: CT ABDOMEN AND PELVIS WITH CONTRAST CLINICAL INFORMATION: Carcinoid syndrome COMPARISON: CT abdomen pelvis 04/11/2021 TECHNIQUE: Multidetector volumetric images were obtained from the superior aspect of the liver through the pubic symphysis following administration 85 mL of Omnipaque 350 intravenous contrast. Sagittal and coronal reformatted images were obtained on the technologist's workstation. This CT examination was performed using dose optimization techniques as appropriate, variously including the following: *Automated exposure control *Adjustment of mA and/or kV according to patient size (this includes techniques or standardized protocols for targeted exams where dose is matched to indication/reason for exam; i.e. extremities or head) *Use of iterative reconstruction technique DLP: 283 mGy-cm FINDINGS: Visualized lung bases demonstrate mild dependent atelectasis. Stable 3 mm pulmonary nodule of the posterior lateral right lung base (image 4/723, series 4). Interval development of a new 4 mm subpleural nodular density slightly inferior to this nodule (image 24) with a smaller 3 mm subpleural nodular density even more inferior within the right lung base (image 49). There are new abutting pulmonary nodules within the posterolateral most aspect of the right lung base on image 72, the largest measuring 6 mm. The liver is normal in size but demonstrates overall heterogeneous enhancement. Continued interval increase in size of now 4.5 cm mixed attenuation lesion in the peripheral right hepatic lobe, previously 2.3 cm (image 19/87, series 3). The gallbladder is normal in appearance. The pancreas, spleen and adrenal glands are unremarkable. The stomach is relatively decompressed. Normal caliber loops of small and large bowel. Stable approximately 2.4 cm lymph node at the root of the small bowel mesentery resulting narrowing of the SMV (image 36/87, series 3). Numerous prominent/mildly enlarged retroperitoneal lymph nodes are all relatively stable in size from April imaging. The bladder is relatively decompressed but grossly unremarkable. Unremarkable CT appearance of the uterus. No gross free pelvic fluid. No inguinal lymphadenopathy. Mild diffuse degenerative changes of the spine. Similar sclerotic changes of the S1 vertebral body. Interval development of a 7 mm sclerotic lesion within the posterior right ilium (image 436/723, series 4). CT/CT abdomen pelvis w con IMPRESSION: Continued interval increase in size of now 4.5 cm right hepatic lesion, nonspecific. Prominent/enlarged lymph nodes within the small bowel mesentery and retroperitoneum all appear relatively stable in size from April 2021. There is however a new approximately 7 mm sclerotic lesion right ilium in addition to a few new subcentimeter pulmonary nodules/nodular densities of the posterior lateral right lung base. Fleischner guidelines were followed.
[2021-09-05] MEDS: iohexoL 350 MG/ML 100 ML INFUS..BTL IV (09:53)
== END 2021-09-05 06:49 | disposition home or self-care (01) ==
LOC: HO.CT 06:48
PROVIDERS: PCP Internal Medicine; Visit Provider Internal Medicine Medical Oncology
DX: E34.0 Carcinoid syndrome (principal)
CPT/HCPCS: 74177; Q9967

== ENCOUNTER 2021-09-10 13:26 | Inpatient (IN) | payer OTHER, SELFPAY ==
--- NOTE | ~2021-09-10 | FL_ITS ---
EXAMINATION: FL MODIFIED BARIUM SWALLOW CLINICAL INFORMATION: Dysphagia COMPARISON: None TECHNIQUE: Routine modified barium swallow was performed in lateral fluoroscopy in presence of speech therapist. FINDINGS: On oral administration of thin, thick barium and various consistencies of food in between, there is normal propagation of bolus from the oral cavity through the pharynx into the esophagus without laryngeal penetration or aspiration. No retention of barium seen in the valleculae or piriform sinuses. FLUOROSCOPY TIME: 3.6 minutes DOSE AREA PRODUCT: 11.13 uGy-m2 (microgray-meter squared) FL/FL barium swallow modified IMPRESSION: Unremarkable modified barium swallow exam. Correlate with speech therapy results.
--- NOTE | ~2021-09-10 | CT_ITS ---
EXAMINATION: CT SOFT TISSUE NECK WITH CONTRAST CT CHEST WITH CONTRAST CLINICAL INFORMATION: Neck pain. Difficulty swallowing. History of carcinoid tumor. COMPARISON: CT chest from 01/29/2021. CT abdomen and pelvis from 09/05/2021. TECHNIQUE: Multidetector helical imaging was performed in the axial plane through the chest and neck following the administration of 80 mL of Omnipaque 350 intravenous contrast. Multiple axial reformats and coronal/sagittal reconstructions were created the technologist workstation for review. This CT examination was performed using dose optimization techniques as appropriate, variously including the following: *Automated exposure control. *Adjustment of mA and/or kV according to patient size (this includes techniques or standardized protocols for targeted exams where dose is matched to indication/reason for exam; i.e. extremities or head). *Use of iterative reconstruction technique. DLP: 803 mGy-cm FINDINGS: NECK: No significant cutaneous thickening or subcutaneous inflammation. No discrete fluid collection within the deep tissues of the neck. The premaxillary, retromaxillary, pterygopalatine fossa, orbital apical, parapharyngeal, and prelaryngeal adipose tissue is maintained. Normal appearance of the parotid, submandibular, and thyroid glands. Scattered subcentimeter lymph nodes bilaterally, none of which are pathologically enlarged or abnormally enhancing. Normal mucosal contours of the pharynx and larynx without abnormal enhancement. Normal appearance of the hyoid bone, thyroid cartilage, or cartilaginous trachea. The airways remains widely patent. No radiopaque foreign bodies. The visualized portion of the skull base is without significant abnormalities. Mild mucosal thickening of the paranasal sinuses. The mastoid air cells and middle ear cavities are clear. No demonstrated significant periapical odontogenic disease. LUNGS/PLEURA: Small to moderate right greater than left pleural effusions with subpleural components. There is consolidation of the dependent lung bases. Moderate groundglass opacification of the remaining dependent lungs. Moderate interlobular septal thickening throughout. Mild multifocal nodular thickening of peripheral interlobular septi bilaterally. No additional focal lung parenchymal abnormalities. No pneumothorax. The airways remain patent. MEDIASTINUM: The cardiac structures are without significant demonstrated abnormality. No pericardial effusion. No mediastinal free fluid or gas. No hilar or mediastinal lymphadenopathy. AXILLA: No lymphadenopathy. UPPER ABDOMEN: A partially visualized enhancing lesion in the lateral aspect of the right hepatic lobe appears increased in size compared to exam from 2020, measuring at least 4 cm in axial dimension at this time. This lesion was better characterized on CT of the abdomen and pelvis from 09/05/2021. Mildly heterogeneous attenuation throughout the remainder of the visualized liver. Limited evaluation of the upper abdomen without additional significant soft tissue abnormalities. VASCULATURE: No demonstrated central pulmonary emboli. The thoracic aorta is of normal contour and caliber. Normal opacification of the cervical arterial and venous structures. OSSEOUS Structures: The atlantooccipital and atlantoaxial articulations remain well aligned straightening of the normal cervical lordosis. Otherwise, normal anatomic alignment of the cervical spine. No evidence of acute fracture or subluxation of the cervical spine. The vertebral body heights are maintained. The intervertebral disc spaces are maintained. No evidence of epidural collection. There is no prevertebral soft tissue swelling. Mild multilevel degenerative changes of the thoracic spine. No suspicious lytic or sclerotic osseous lesions demonstrated. No soft tissue masses demonstrated. CT/CT soft tissue neck w con IMPRESSION: 1. [id number]-ccebqqdo right greater than left pleural effusions. Consolidation of the lung bases. Moderate interlobular septal thickening with a degree of peripheral nodularity. Findings are suggestive of developing pulmonary edema with or without interstitial developing pulmonary metastatic lesions. 2. Hepatic heterogeneity with redemonstrated lesion in the lateral aspect of the right hepatic lobe. As previously noted, this lesion has demonstrated progressive increase in size over multiple exams. 3. No demonstrated focal lesion, collection, lymphadenopathy, or abnormal enhancement within the soft tissues of the neck.
--- NOTE | ~2021-09-10 | FL_ITS ---
EXAMINATION: FL BARIUM SWALLOW CLINICAL INFORMATION: Dysphagia COMPARISON: None TECHNIQUE: Barium swallow examination is performed using fluoroscopic evaluation in addition to multiple fluoroscopic spot views. The patient is imaged both upright and prone and using both thick and thin sulfate along with effervescent granules. Fluoroscopy time: 3.6 minutes DAP: 76.098 Gycm2 Images: 13 FINDINGS: Following oral administration of thick barium, barium-coated turkey, there is normal propagation bolus from the oral cavity through the pharynx, esophagus into stomach without any evidence of obstruction, narrowing or stricture. The course, caliber and peristalsis of the esophagus is normal. FL/FL barium swallow IMPRESSION: Unremarkable barium swallow exam with thick barium and barium-coated turkey.
[2021-09-10 13:30] VITALS: BP 152/70; PULSE 78; RESP 16; TEMP 36.6; O2SAT 95; BMI 22.6
[2021-09-10 14:14] LABS: MANUAL DIFF FLAG NO
[2021-09-10 14:16] LABS: Basophils Percent Auto 0.6 % (0-2); Eosinophils Absolute Auto 0.1 X10*3/uL (0.0-0.4); Eosinophils Percent Auto 2.8 % (0-4); Hematocrit 32.9 % (37.0-47.0); Hemoglobin 10.4 g/dl (12.0-16.0); Imm Gran Abs Auto 0.01 X10*3/uL (0.00-0.03); Imm Gran Pct Auto 0.3 % (0.0-0.4); Lymphocytes Absolute Auto 0.3 X10*3/uL (1.2-4.9); Lymphocytes Percent Auto 7.7 % (20-40); Mean Corpuscular HGB Conc 31.6 g/dl (31.0-35.0); Mean Corpuscular Hemoglobin 28.3 pg (27.0-33.0); Mean Corpuscular Volume 89.6 fL (80.0-98.0); Mean Platelet Volume 9.7 fL (9.4-12.3); Monocytes Absolute Auto 0.3 X10*3/uL (0.1-1.2); Neutrophils Absolute Auto 2.6 x10*3/uL (2.0-8.3); Neutrophils Percent Auto 80.6 % (45-73); Platelet Count 142 X10*3/uL (160-400); Red Blood Count 3.67 X10*6/uL (4.20-5.50); Red Cell Distribution Width 14.1 % (11.0-16.0); White Blood Count 3.3 X10*3/uL (4.8-10.8)
[2021-09-10 14:30] LABS: Anion Gap 11 (12-20); Blood Urea Nitrogen 16 mg/dL (9-16); Calcium 9.2 mg/dL (8.4-10.2); Carbon Dioxide 29 mmol/L (22-29); Chloride 104 mmol/L (96-108); Creatinine Clr Calc Pharmacy 48.7; Estimated Glomerular Filt Rate 54; Glucose Random 119 mg/dL (60-115); Potassium 3.8 mmol/L (3.3-5.1); Sodium 140 mmol/L (135-145)
--- NOTE | 2021-09-10 15:04 | ED_ITS ---
HPI - General Adult General Chief complaint: General Medical Stated complaint: Cant swallow/lips purple Time Seen by Provider: 09/10/21 14:23 Source: patient Mode of arrival: ambulatory Limitations: no limitations History of Present Illness HPI narrative: Patient comes emergency room complaining of pain and difficulty swallowing. Patient states that she has had issues swallowing in the past, patient sees Dr. Douglass. However, patient only had issues with solids in the past, over the last 3 days, patient has had difficulty swallowing fluids. Patient states that she could barely swallow her pills this morning. No solid food. Patient is currently being treated with radiation for carcinoid tumor/syndrome. Patient states her last radiation was in July of 2021, patient is due in 2 weeks for another radiation treatment. Related Data Home Medications Medication Instructions Recorded Confirmed telotristat etiprate 250 mg tablet 250 mg PO BID tab 08/16/20 07/11/21 (Xermelo) ondansetron HCl 8 mg tablet 8 mg PO Q8H PRN 10/15/20 07/11/21 octreotide,microspheres 20 mg mg IM 03/12/21 07/11/21 intramuscular susp, extended release (Sandostatin [place]AR [place]) Previous Rx's Medication Instructions Recorded blood pressure monitor (Blood #1 ea 02/05/21 Pressure Kit) carvedilol 6.25 mg tablet 6.25 mg PO BID 90 Days #180 tab 04/09/21 alprazolam 0.5 mg tablet (Xanax) 0.5 mg PO TID PRN 7 Days #21 tab 04/13/21 diphenoxylate-atropine 2.5 1 tab PO Q12H 30 Days #60 tab 05/02/21 mg-0.025 mg tablet venlafaxine 75 mg capsule,extended 75 mg PO DAILY 90 Days #90 cap 07/04/21 release 24 hr lisinopril 5 mg tablet 5 mg PO DAILY #30 tab 07/17/21 omeprazole 10 mg capsule,delayed 10 mg PO BID #180 cap 08/05/21 release hydrocortisone 2.5 % topical cream 1 appl TOPICAL BID PRN 30 Days #28 09/06/21 g Allergies Allergy/AdvReac Type Severity Reaction Status Date / Time oxycodone Allergy Intermediate hives Verified 07/11/21 08:58 Review of Systems Review of Systems: Constitutional : No Weight loss, No Fever, No Chills, No Night Sweats, No Fatigue, No Malaise ENT/Mouth : No Hearing loss, No Ear Pain, No Nasal Congestion, No Sinus Pain, No Hoarseness, No sore throat, No Rhinorrhea, complaining of difficulty and pain swallowing both liquids and solids Eyes: No Eye Pain, No Swelling, No Redness, No Foreign Body, No Discharge, No Vision Changes Cardiovascular : No Chest Pain, No SOB, No Dyspnea on Exertion, No Orthopnea, No Edema, No Palpitations Respiratory : No Cough, No Sputum, No Wheezing, No Smoke Exposure, No Dyspnea Gastrointestinal : No Nausea, No Vomiting, No Diarrhea, No Constipation, No abdominal Pain, No Hematochezia, No Melena Genitourinary : no irregular bleeding, No Dysuria, No Urinary Frequency, No Hematuria, No Urinary Incontinence, No Urgency, No Flank Pain, No Urinary Flow Changes, No Hesitancy Musculoskeletal : No joint pain, No Myalgias, No Joint Swelling Skin : No Skin Lesions, No rash Neuro : No Weakness, No Numbness, No Paresthesias, No Loss of Consciousness, No Dizziness, No Headache Psych : No Anxiety/Panic, No Depression, No SI/HI/AH/VH, No Social Issues, Heme/Lymph: No Bruising, No Bleeding,No Lymphadenopathy Endocrine : No Polyuria, No Polydipsia, No Temperature Intolerance PMFSH Past Medical History Medical History Carcinoid tumor Depression Eczema Encounter for Medicare annual wellness exam History of headache HTN (hypertension) Hx of left bundle branch block Lab test negative for COVID-19 virus Liver metastasis Malignant carcinoid tumor of ileum Surgical History H/O colonoscopy History of History of endometrial ablation History of esophagogastroduodenoscopy (EGD) History of right hemicolectomy (~01/2018) Hx of dilation and curettage Hx of eye surgery Hx of tubal ligation Family History Family History Brother History of throat cancer Maternal Aunt History of colon cancer Mother Hx of completed stroke Father No problems noted. Family/Other Substance use disorder Social History Social History Household Members: Spouse and Children Housing: Apartment Are you a primary skin care instructor to a significant other at home: No Do you presently have visiting nurse or other home services: No Alcohol intake: never Patient Tobacco Use Status: Never used Tobacco Smoked in Last 30 Days: No e-Cigarette/Vaping Use: Never Used Second Hand Smoke Exposure: No Use of substances other than those prescribed or required for medical reasons: No Advance Directives: No Advance Directives Information Provided: No service: No Current occupational status: disabled Physical Exam Vital Signs: Vital Signs: Last Vital Signs Temp 98 F 09/10/21 13:30 Pulse 69 09/10/21 15:24 Resp 18 09/10/21 15:24 BP 141/83 H 09/10/21 15:24 Pulse Ox 95 09/10/21 15:24 BMI result Body Mass Index 22.6 Const: Other: Appearance: Alert. Oriented X3. No acute distress. Eyes: Pupils equal, round and reactive to light. ENT: Pharynx normal. No candidiasis visualized Neck: Normal inspection. Neck supple. No lymph nodes noted. No crepitus CVS: Normal heart rate and rhythm. Pulses normal. Normal S1 and S2 Respiratory: No respiratory distress. Breath sounds normal. No Wheezing. No rales Abdomen: Soft and nontender. No rigidity. No distention. good BS x4 Skin: Skin warm and dry. Normal skin color. Normal skin turgor. Extremities: No lower extremity edema. No Lacerations. No Rash Neuro: Oriented X 3. No motor deficit. No sensory deficit. Moving all extermities. No slurred speech. Course Course Course Narrative: CT scan done on September 05 shows a right hepatic lesion that increased in size from previous CT scans. CT scan of the neck/soft tissue and chest are pending. If patient cannot drink fluids, she will likely to be admitted. If patient has no metastatic lesions to the esophagus/chest, it is possible that patient may need a GI series, patient may have an esophageal stricture. Patient may also on a GI consult for possible esophageal dilation Patient is stable. I discussed the above-mentioned with Dr. Atkins Medical Decision Making Lab Data Result diagrams: 09/10/21 13:51 09/10/21 13:51 Labs: Lab Results 02/08/22 02/08/22 Range/Units 13:51 13:51 WBC 3.3 L (4.8-10.8) X10*3/uL RBC 3.67 L (4.20-5.50) X10*6/uL Hgb 10.4 L (12.0-16.0) g/dl Hct 32.9 L (37.0-47.0) % MCV 89.6 (80.0-98.0) fL MCH 28.3 (27.0-33.0) pg MCHC 31.6 (31.0-35.0) g/dl RDW 14.1 (11.0-16.0) % Plt Count 142 L (160-400) X10*3/uL MPV 9.7 (9.4-12.3) fL Immature Gran % (Auto) 0.3 (0.0-0.4) % Neut % (Auto) 80.6 H (45-73) % Lymph % (Auto) 7.7 L (20-40) % [place] % (Auto) 8.0 (2-11) % Eos % (Auto) 2.8 (0-4) % Baso % (Auto) 0.6 (0-2) % Lymph # (Auto) 0.3 L (1.2-4.9) X10*3/uL [place] # (Auto) 0.3 (0.1-1.2) X10*3/uL Eos # (Auto) 0.1 (0.0-0.4) X10*3/uL Baso # (Auto) 0.0 (0.0-0.2) X10*3/uL Abs Immat Gran (auto) 0.01 (0.00-0.03) X10*3/uL Absolute Neuts (auto) 2.6 (2.0-8.3) x10*3/uL Absolute Nucleated RBC 0.000 (0.0-0.012) X10*3/uL Nucleated RBC % (auto) 0.0 (0.0-0.2) /100WBC Sodium 140 (135-145) mmol/L Potassium 3.8 (3.3-5.1) mmol/L Chloride 104 (96-108) mmol/L Carbon Dioxide 29 (22-29) mmol/L Anion Gap 11 L (12-20) BUN 16 (9-16) mg/dL Creatinine 1.04 (0.5-1.4) mg/dL Estim Creat Clear Calc 48.7 Estimated GFR 54 Random Glucose 119 H (60-115) mg/dL Calcium 9.2 (8.4-10.2) mg/dL Total Bilirubin 0.6 (0.0-1.0) mg/dL Direct Bilirubin 0.2 (0.0-0.5) mg/dL AST 55 H (5-31) U/L ALT 42 H (0-31) U/L Alkaline Phosphatase 99 (39-117) U/L Total Protein 6.9 (6.5-8.0) g/dL Albumin 4.1 (3.5-5.0) g/dL Discharge Plan Discharge Clinical Impression: Dysphagia, Odynophagia Patient Disposition: Still a Patient Prescriptions: No Action carvedilol 6.25 mg tablet 6.25 mg PO BID 90 Days Qty: 180 3RF Rx Instructions: must administer with a meal/food alprazolam [Xanax] 0.5 mg tablet 0.5 mg PO TID PRN (Reason: anxiety) 7 Days Qty: 21 0RF venlafaxine 75 mg capsule,extended release 24hr 75 mg PO DAILY 90 Days Qty: 90 3RF lisinopril 5 mg tablet 5 mg PO DAILY Qty: 30 5RF omeprazole 10 mg capsule,delayed release(DR/EC) 10 mg PO BID Qty: 180 0RF hydrocortisone 2.5 % cream 1 appl topical BID PRN (Reason: skin irritation) 30 Days Qty: 28 1RF Xermelo 250 mg tablet 250 mg PO BID 0RF Rx Instructions: must administer with a meal/food (DME) blood pressure monitor [Blood Pressure Kit] Kit See Rx Instructions .ROUTE .MEDSUPPLY Qty: 1 0RF Rx Instructions: As directed - take BP daily and keep a log ondansetron HCl 8 mg tablet 8 mg PO Q8H PRN (Reason: nausea and vomiting) 0RF diphenoxylate-atropine 2.5-0.025 mg tablet 1 tab PO Q12H 30 Days Qty: 60 0RF Sandostatin LAR [place] 20 mg suspension,extended rel recon IM 0RF
[2021-09-10] MEDS: 0.9 % Sodium Chloride 1,000 ML 999 ML IVCONT (15:21)
[2021-09-10 15:24] VITALS: BP 141/83; PULSE 69; RESP 18; O2SAT 95
[2021-09-10 15:46] LABS: Alanine Aminotransferase 42 U/L (0-31); Albumin Level 4.1 g/dL (3.5-5.0); Alkaline Phosphatase 99 U/L (39-117); Aspartate Amino Transferase 55 U/L (5-31); Bilirubin Direct 0.2 mg/dL (0.0-0.5); Bilirubin Total 0.6 mg/dL (0.0-1.0); Total Protein 6.9 g/dL (6.5-8.0)
[2021-09-10] MEDS: iohexoL 350 MG/ML 100 ML INFUS..BTL IV (16:54)
[2021-09-10] MEDS: Piperacillin Sodium/Tazobactam 3.375 GM in 0.9 % Sodium Chloride 50 ML IV (18:20)
[2021-09-10 18:30] LABS: Lactic Acid 0.8 mmol/L (0.5-2.0)
--- NOTE | 2021-09-10 18:52 | PHA.MEDREC ---
Pharmacy Consult ? Medication Reconciliation Pharmacy has completed the medication reconciliation.
[2021-09-10 20:47] LABS: B Type Natriuretic Peptide 322 pg/mL (<100); Troponin-I High Sensitivity 5.3 ng/L (<3.5-17.0)
--- NOTE | 2021-09-10 20:48 | ED.GENADULT ---
HPI - General Adult General Chief complaint: General Medical Stated complaint: Cant swallow/lips purple Time Seen by Provider: 09/10/21 14:23 Source: patient Mode of arrival: ambulatory Limitations: no limitations Related Data Home Medications Medication Instructions Recorded Confirmed telotristat etiprate 250 mg tablet 250 mg PO TID tab 08/16/20 09/10/21 (Xermelo) Previous Rx's Medication Instructions Recorded blood pressure monitor (Blood #1 ea 02/05/21 Pressure Kit) carvedilol 6.25 mg tablet 6.25 mg PO BID 90 Days #180 tab 04/09/21 venlafaxine 75 mg capsule,extended 75 mg PO DAILY 90 Days #90 cap 07/04/21 release 24 hr omeprazole 10 mg capsule,delayed 10 mg PO BID #180 cap 08/05/21 release fluconazole 100 mg tablet 100 mg PO DAILY #7 tab 09/13/21 furosemide 40 mg tablet (Lasix) 40 mg PO DAILY #30 tab 09/13/21 lisinopril 20 mg tablet 20 mg PO DAILY #30 tab 09/13/21 ondansetron HCl 8 mg tablet 8 mg PO Q8H PRN #30 tab 09/13/21 Allergies Allergy/AdvReac Type Severity Reaction Status Date / Time oxycodone Allergy Intermediate hives Verified 07/11/21 08:58 [facility] Past Medical History Medical History Carcinoid tumor Depression Eczema Encounter for Medicare annual wellness exam History of headache HTN (hypertension) Hx of left bundle branch block Lab test negative for COVID-19 virus Liver metastasis Malignant carcinoid tumor of ileum Surgical History H/O colonoscopy History of History of endometrial ablation History of esophagogastroduodenoscopy (EGD) History of right hemicolectomy (~01/2018) Hx of dilation and curettage Hx of eye surgery Hx of tubal ligation Family History Family History Brother History of throat cancer Maternal Aunt History of colon cancer Mother Hx of completed stroke Father No problems noted. Family/Other Substance use disorder Social History Social History Household Members: Family Housing: House Are you a primary home health caregiver to a significant other at home: No Do you presently have visiting nurse or other home services: No Alcohol intake: never Patient Tobacco Use Status: Never used Tobacco e-Cigarette/Vaping Use: Never Used Second Hand Smoke Exposure: No service: No Current occupational status: disabled Medical Decision Making Lab Data Result diagrams: 09/13/21 08:12 09/13/21 08:12 Labs: Lab Results 09/10/21 09/10/21 09/10/21 Range/Units 13:51 13:51 18:10 WBC 3.3 L (4.8-10.8) X10*3/uL RBC 3.67 L (4.20-5.50) X10*6/uL Hgb 10.4 L (12.0-16.0) g/dl Hct 32.9 L (37.0-47.0) % MCV 89.6 (80.0-98.0) fL MCH 28.3 (27.0-33.0) pg MCHC 31.6 (31.0-35.0) g/dl RDW 14.1 (11.0-16.0) % Plt Count 142 L (160-400) X10*3/uL MPV 9.7 (9.4-12.3) fL Immature Gran % (Auto) 0.3 (0.0-0.4) % Neut % (Auto) 80.6 H (45-73) % Lymph % (Auto) 7.7 L (20-40) % [place] % (Auto) 8.0 (2-11) % Eos % (Auto) 2.8 (0-4) % Baso % (Auto) 0.6 (0-2) % Lymph # (Auto) 0.3 L (1.2-4.9) X10*3/uL [place] # (Auto) 0.3 (0.1-1.2) X10*3/uL Eos # (Auto) 0.1 (0.0-0.4) X10*3/uL Baso # (Auto) 0.0 (0.0-0.2) X10*3/uL Abs Immat Gran (auto) 0.01 (0.00-0.03) X10*3/uL Absolute Neuts (auto) 2.6 (2.0-8.3) x10*3/uL Absolute Nucleated RBC 0.000 (0.0-0.012) X10*3/uL Nucleated RBC % (auto) 0.0 (0.0-0.2) /100WBC Sodium 140 (135-145) mmol/L Potassium 3.8 (3.3-5.1) mmol/L Chloride 104 (96-108) mmol/L Carbon Dioxide 29 (22-29) mmol/L Anion Gap 11 L (12-20) BUN 16 (9-16) mg/dL Creatinine 1.04 (0.5-1.4) mg/dL Estim Creat Clear Calc 48.7 Estimated GFR 54 Random Glucose 119 H (60-115) mg/dL Lactic Acid 0.8 (0.5-2.0) mmol/L Calcium 9.2 (8.4-10.2) mg/dL Total Bilirubin 0.6 (0.0-1.0) mg/dL Direct Bilirubin 0.2 (0.0-0.5) mg/dL AST 55 H (5-31) U/L ALT 42 H (0-31) U/L Alkaline Phosphatase 99 (39-117) U/L Troponin I High Sens (<3.5-17.0) ng/L B-Natriuretic Peptide (<100) pg/mL Total Protein 6.9 (6.5-8.0) g/dL Albumin 4.1 (3.5-5.0) g/dL 09/10/21 09/10/21 Range/Units 20:09 20:09 WBC (4.8-10.8) X10*3/uL RBC (4.20-5.50) X10*6/uL Hgb (12.0-16.0) g/dl Hct (37.0-47.0) % MCV (80.0-98.0) fL MCH (27.0-33.0) pg MCHC (31.0-35.0) g/dl RDW (11.0-16.0) % Plt Count (160-400) X10*3/uL MPV (9.4-12.3) fL Immature Gran % (Auto) (0.0-0.4) % Neut % (Auto) (45-73) % Lymph % (Auto) (20-40) % [place] % (Auto) (2-11) % Eos % (Auto) (0-4) % Baso % (Auto) (0-2) % Lymph # (Auto) (1.2-4.9) X10*3/uL [place] # (Auto) (0.1-1.2) X10*3/uL Eos # (Auto) (0.0-0.4) X10*3/uL Baso # (Auto) (0.0-0.2) X10*3/uL Abs Immat Gran (auto) (0.00-0.03) X10*3/uL Absolute Neuts (auto) (2.0-8.3) x10*3/uL Absolute Nucleated RBC (0.0-0.012) X10*3/uL Nucleated RBC % (auto) (0.0-0.2) /100WBC Sodium (135-145) mmol/L Potassium (3.3-5.1) mmol/L Chloride (96-108) mmol/L Carbon Dioxide (22-29) mmol/L Anion Gap (12-20) BUN (9-16) mg/dL Creatinine (0.5-1.4) mg/dL Estim Creat Clear Calc Estimated GFR Random Glucose (60-115) mg/dL Lactic Acid (0.5-2.0) mmol/L Calcium (8.4-10.2) mg/dL Total Bilirubin (0.0-1.0) mg/dL Direct Bilirubin (0.0-0.5) mg/dL AST (5-31) U/L ALT (0-31) U/L Alkaline Phosphatase (39-117) U/L Troponin I High Sens 5.3 (<3.5-17.0) ng/L B-Natriuretic Peptide 322 H (<100) pg/mL Total Protein (6.5-8.0) g/dL Albumin (3.5-5.0) g/dL Discharge Plan Discharge Clinical Impression: Dysphagia, Aspiration pneumonia of both lower lobes, Acute right-sided heart failure Patient Disposition: Admitted As Inpatient Interventions: Admission Worksheet (ED) Last Done: 09/11/21 13:32 Discharge Date/Time: 09/11/21 13:33
[2021-09-10 20:56] VITALS: BP 146/73; PULSE 77; RESP 16; TEMP 37.1; O2SAT 97
[2021-09-10 21:30] VITALS: BP 149/81; PULSE 75; RESP 15; O2SAT 97
[2021-09-10] MEDS: Furosemide 20 MG/2 ML VIAL IVPUSH (21:30)
[2021-09-10] MEDS: dexAMETHasone sod phosphate 10 MG/ML VIAL IVPUSH (21:30)
--- NOTE | 2021-09-10 21:46 | PM.IMHP ---
History of Present Illness Date of Service: 09/10/21 Chief Complaint: difficulty swallowing this is a 56-year-old female past medical history of carcinoid tumor of ileum with metastasis to the liver, depression, hypertension, history of left bundle branch block, who presents to the hospital with complaints of difficulty swallowing as well as shortness of breath. Patient reports that she has had difficulty with swallowing in the past but has worsened over the past 3 days. She reports difficulty swallowing liquids and solids. She feels that she has pain on swallowing and food has difficulty going down her esophagus. She has also been experiencing significant difficulty in breathing. Patient reports orthopnea, PND, dry cough, reports intermittent chest pain that is sharp stabbing in nature, lasting few seconds, resolving spontaneously. Patient denies any lower extremity edema. The symptoms have also started about 3 days ago. She denies any fever but has chills, denies any urinary symptoms, no numbness tingling or weakness. Patient currently undergoing radiation therapy for her history of carcinoid tumor and reports that radiation is for her whole upper body. Last treatment was in July. On arrival to the ED patient hemodynamically stable with an elevated blood pressure otherwise no significant abnormality Labs are significant for WBC count of 3.3, hemoglobin of 10.4 which is chronically low for her, AST of 55, ALT of 42 which are slightly elevated than her baseline, BNP of 322 with no previous for comparison, soft tissue neck CT shows small to moderate right greater than left pleural effusion, consolidation of the lung bases, moderate intralobar septal thickening with a degree of peripheral nodularity findings are suggestive of developing pulmonary edema with or without developing pulmonary metastatic lesions, there is no demonstrated focal lesion, collection, lymphadenopathy or abnormal enhancement within the soft tissue of the neck patient treated with Lasix, will be admitted for further management Review of Systems Review of Systems: Yes all other systems are reviewed and are negative [facility] Medical History Carcinoid tumor Depression Eczema Encounter for Medicare annual wellness exam History of headache HTN (hypertension) Hx of left bundle branch block Lab test negative for COVID-19 virus Liver metastasis Malignant carcinoid tumor of ileum Family History Brother History of throat cancer Maternal Aunt History of colon cancer Mother Hx of completed stroke Father No problems noted. Family/Other Substance use disorder Surgical History H/O colonoscopy History of History of endometrial ablation History of esophagogastroduodenoscopy (EGD) History of right hemicolectomy (~01/2018) Hx of dilation and curettage Hx of eye surgery Hx of tubal ligation Social History Household Members: Spouse and Children Housing: Apartment Are you a primary medicare interviewer to a significant other at home: No Do you presently have visiting nurse or other home services: No Alcohol intake: never Patient Tobacco Use Status: Never used Tobacco Smoked in Last 30 Days: No e-Cigarette/Vaping Use: Never Used Second Hand Smoke Exposure: No Use of substances other than those prescribed or required for medical reasons: No Advance Directives: No Advance Directives Information Provided: No service: No Current occupational status: disabled Meds Allergies Allergy/AdvReac Type Severity Reaction Status Date / Time oxycodone Allergy Intermediate hives Verified 07/11/21 08:58 Home Medications Medication Instructions Recorded Confirmed Last Taken Type telotristat etiprate 250 mg tablet 250 mg PO TID tab 08/16/20 09/10/21 09/10/21 History (Xermelo) ondansetron HCl 8 mg tablet 8 mg PO Q8H PRN 10/15/20 09/10/21 09/10/21 History Physical Exam Vital Signs and Narrative: Vital Signs: Last Vital Signs Temp 98.7 F 09/10/21 20:56 Pulse 75 09/10/21 21:30 Resp 15 09/10/21 21:30 BP 149/81 H 09/10/21 21:30 Pulse Ox 97 09/10/21 21:30 BMI result Body Mass Index 22.6 Const: Other: cachectic General: cooperative and no acute distress Orientation/consciousness: patient oriented x3 Eyes: General: appearance normal, both eyes and all related structures Pupils: Equal, round and reactive pupils present Resp: Other: Appears dyspneic bilateral clavicles Effort & Inspection: normal respiratory effort Cardio: Rate: regular rate Rhythm: regular rhythm GI: Palpation (GI): Soft to palpation Auscultation: normal bowel sounds Skin: General skin exam: no rashes or lesions noted Neuro: General: patient oriented x3 Cranial nerves: Yes Equal, round and reactive pupils present Cognition (Neuro): normal cognition Extrem: General: Yes normal to inspection and Yes no pedal edema Results Labs CBC and Chem 7: 09/10/21 13:51 09/10/21 13:51 Labs: Laboratory Results - last 24 hr 09/10/21 09/10/21 09/10/21 13:51 13:51 18:10 Hgb 10.4 L MCV 89.6 MCH 28.3 MCHC 31.6 RDW 14.1 Plt Count 142 L MPV 9.7 Immature Gran % (Auto) 0.3 Neut % (Auto) 80.6 H Lymph % (Auto) 7.7 L [place] % (Auto) 8.0 Eos % (Auto) 2.8 Baso % (Auto) 0.6 Lymph # (Auto) 0.3 L [place] # (Auto) 0.3 Eos # (Auto) 0.1 Baso # (Auto) 0.0 Abs Immat Gran (auto) 0.01 Absolute Neuts (auto) 2.6 Absolute Nucleated RBC 0.000 Nucleated RBC % (auto) 0.0 Anion Gap 11 L Estim Creat Clear Calc 48.7 Estimated GFR 54 Random Glucose 119 H Lactic Acid 0.8 Calcium 9.2 Total Bilirubin 0.6 Direct Bilirubin 0.2 AST 55 H ALT 42 H Alkaline Phosphatase 99 B-Natriuretic Peptide Total Protein 6.9 Albumin 4.1 09/10/21 20:09 Hgb MCV MCH MCHC RDW Plt Count MPV Immature Gran % (Auto) Neut % (Auto) Lymph % (Auto) [place] % (Auto) Eos % (Auto) Baso % (Auto) Lymph # (Auto) [place] # (Auto) Eos # (Auto) Baso # (Auto) Abs Immat Gran (auto) Absolute Neuts (auto) Absolute Nucleated RBC Nucleated RBC % (auto) Anion Gap Estim Creat Clear Calc Estimated GFR Random Glucose Lactic Acid Calcium Total Bilirubin Direct Bilirubin AST ALT Alkaline Phosphatase B-Natriuretic Peptide 322 H Total Protein Albumin Imaging Radiologist's Impressions: Impressions Chest CT 09/10/21 16:59 IMPRESSION: 1. [id number] right greater than left pleural effusions. Consolidation of the lung bases. Moderate interlobular septal thickening with a degree of peripheral nodularity. Findings are suggestive of developing pulmonary edema with or without interstitial developing pulmonary metastatic lesions. 2. Hepatic heterogeneity with redemonstrated lesion in the lateral aspect of the right hepatic lobe. As previously noted, this lesion has demonstrated progressive increase in size over multiple exams. 3. No demonstrated focal lesion, collection, lymphadenopathy, or abnormal enhancement within the soft tissues of the neck. Soft Tissue Neck CT 09/10/21 16:59 IMPRESSION: 1. Yczic-[id number] right greater than left pleural effusions. Consolidation of the lung bases. Moderate interlobular septal thickening with a degree of peripheral nodularity. Findings are suggestive of developing pulmonary edema with or without interstitial developing pulmonary metastatic lesions. 2. Hepatic heterogeneity with redemonstrated lesion in the lateral aspect of the right hepatic lobe. As previously noted, this lesion has demonstrated progressive increase in size over multiple exams. 3. No demonstrated focal lesion, collection, lymphadenopathy, or abnormal enhancement within the soft tissues of the neck. Assessment and Plan (1) Dysphagia: Status: Acute (2) Aspiration pneumonia of both lower lobes: Status: Acute (3) Acute CHF: Status: Acute Plan 48-year-old female with past medical history of metastatic carcinoid tumor for which she is currently on radiation therapy presents to the hospital with complaints of dysphagia found to have pneumonia as well as CHF # dysphagia - possibly secondary to radiation esophagitis versus prostatic disease less likely - soft tissue CT of the neck showed no lesion /mass - this time will consult speech for possible been swell as well as GI for possible EGD - will keep NPO # aspiration pneumonia - evidence of aspiration pneumonia on CT likely secondary to the dysphagia - will treat with IV antibiotics - follow cultures # acute CHF - likely right sided heart failure - has elevated BNP, orthopnea, PND, and dyspnea - chest x-ray with pleural effusion - will treat with Lasix although she did receive fluids in the ED - echocardiogram from December of 2020 showed ejection fraction of 55-60% with mild mitral valve regurgitation and normal left ventricular systolic function - will repeat echocardiogram, and consult Cardiology # hypertension - stable - continue home antihypertensives # depression - continue venlafaxine DVT prophylaxis: Heparin subQ code status: Full code Quality Stroke Does the patient have a stroke diagnosis?: No VTE Prior VTE?: No VTE Risk Level:: Medical - moderate - high VTE Device Contraindication: Treatment Not Indicated VTE Drug Contraindication: N/A - Med Ordered
[2021-09-10 22:35] VITALS: BP 160/91; PULSE 82; RESP 16; TEMP 36.9; O2SAT 96
[2021-09-10 23:05] LABS: COVID-19 Test Negative (Negative)
[2021-09-11] VITALS (8 sets, daily range): BP systolic 113–163; BP diastolic 50–77; PULSE 61–77; RESP 15–18; TEMP 36.2–37.1; O2SAT 93–97
[2021-09-11] MEDS: Lactated Ringers 1,000 ML 100 ML IVCONT (00:07)
[2021-09-11] MEDS: Ampicillin Sodium/Sulbactam Na 3 GM in 0.9 % Sodium Chloride 100 ML IV ×4 (00:07→23:43)
[2021-09-11] MEDS: Heparin Sodium,Porcine 5,000 UNIT/ML VIAL 5000 UNIT SUBCUT ×3 (00:08→22:01)
--- NOTE | 2021-09-11 05:32 | PC.NURSE ---
pt out of bed to bathroom with a steady gait. Pt sign of distress. Will continue to monitor.
[2021-09-11] MEDS: Furosemide 40 MG/4 ML VIAL IVPUSH ×2 (06:41→17:19)
[2021-09-11] MEDS: 0.9 % Sodium Chloride Flush 3 ML SYRINGE IVFLUSH (07:21)
[2021-09-11 07:37] LABS: MANUAL DIFF FLAG NO
[2021-09-11 07:42] LABS: Basophils Percent Auto 0.4 % (0-2); Hematocrit 32.7 % (37.0-47.0); Hemoglobin 10.5 g/dl (12.0-16.0); Imm Gran Abs Auto 0.01 X10*3/uL (0.00-0.03); Imm Gran Pct Auto 0.4 % (0.0-0.4); Lymphocytes Absolute Auto 0.2 X10*3/uL (1.2-4.9); Lymphocytes Percent Auto 6.1 % (20-40); Mean Corpuscular HGB Conc 32.1 g/dl (31.0-35.0); Mean Corpuscular Hemoglobin 28.5 pg (27.0-33.0); Mean Corpuscular Volume 88.9 fL (80.0-98.0); Monocytes Absolute Auto 0.1 X10*3/uL (0.1-1.2); Monocytes Percent Auto 3.9 % (2-11); Neutrophils Absolute Auto 2.5 x10*3/uL (2.0-8.3); Neutrophils Percent Auto 89.2 % (45-73); Platelet Count 134 X10*3/uL (160-400); Red Blood Count 3.68 X10*6/uL (4.20-5.50); Red Cell Distribution Width 14.3 % (11.0-16.0); White Blood Count 2.8 X10*3/uL (4.8-10.8)
--- NOTE | 2021-09-11 07:42 | PC.NURSE ---
Checked in with patient who is resting in bed, patient denies pain and is resting comfortably.
[2021-09-11 08:03] LABS: Anion Gap 19 (12-20); Blood Urea Nitrogen 16 mg/dL (9-16); Calcium 9.2 mg/dL (8.4-10.2); Carbon Dioxide 26 mmol/L (22-29); Chloride 102 mmol/L (96-108); Creatinine Clr Calc Pharmacy 48.3; Estimated Glomerular Filt Rate 54; Glucose Random 120 mg/dL (60-115); Potassium 3.9 mmol/L (3.3-5.1); Sodium 143 mmol/L (135-145)
--- NOTE | 2021-09-11 09:33 | P.CONCA_ITS ---
History of Present Illness History of Present Illness Date of Service: 09/11/21 Requesting physician: Alejo Banks Chief complaint: dysphagia, aspiration PNA, CHF? Narrative: 56-year-old female here for shortness of breath. She has background history of carcinoid tumor and has been on chemotherapy. She also has background of hypertension and chest pains. She underwent stress tests previously which she had rate-related left bundle-branch block and chest discomfort but overall the stress test was normal. She had coronary CTA which was performed in May 04 which showed 30% lad and RCA disease and mild ectasia of the ascending aorta. She is now presenting shortness of breath. She said she has been experiencing dysphagia for some time her weight was getting worse recently. She also had some episodes where she was trying to drink and was coughing afterwards. They some question about aspiration. She also has some symptoms orthopnea. She came short of breath and had high blood pressure. She had CT scan which raise concern for heart failure and she was given IV diuretics. Overall she is still feeling short of breath and feels quite sick. Unclear why she has dysphagia right now. [facility]LY [facility] Past Medical History Medical History Carcinoid tumor Depression Eczema Encounter for Medicare annual wellness exam History of headache HTN (hypertension) Hx of left bundle branch block Lab test negative for COVID-19 virus Liver metastasis Malignant carcinoid tumor of ileum Family History Family History Brother History of throat cancer Maternal Aunt History of colon cancer Mother Hx of completed stroke Father No problems noted. Family/Other Substance use disorder Surgical History Surgical History H/O colonoscopy History of History of endometrial ablation History of esophagogastroduodenoscopy (EGD) History of right hemicolectomy (~01/2018) Hx of dilation and curettage Hx of eye surgery Hx of tubal ligation Social History Social History Household Members: Family Housing: House Are you a primary resident care assistant to a significant other at home: No Do you presently have visiting nurse or other home services: No Alcohol intake: never Patient Tobacco Use Status: Never used Tobacco e-Cigarette/Vaping Use: Never Used Second Hand Smoke Exposure: No service: No Current occupational status: disabled Meds Allergies Allergy/AdvReac Type Severity Reaction Status Date / Time oxycodone Allergy Intermediate hives Verified 07/11/21 08:58 Active Medications: Current Medications Acetaminophen (Acetaminophen 325 Mg Tablet) 650 mg PO Q6H PRN PRN Reason: Pain, Mild (Pain Scale 1-3) Carvedilol (Carvedilol 6.25 Mg Tablet) 6.25 mg PO BID [facility]; Protocol Last Admin: 09/11/21 08:04 Dose: Not Given Documented by: Docusate Sodium (Docusate Sodium 100 Mg Capsule) 100 mg PO DAILY PRN PRN Reason: Constipation Furosemide (Furosemide 40 Mg/4 Ml Vial) 40 mg IVPUSH BID@0900,1800 [facility]; Protocol Last Admin: 09/11/21 09:01 Dose: Not Given Documented by: Heparin Sodium (Porcine) (Heparin Sodium,Porcine 5,000 Unit/Ml Vial) 5,000 unit SUBCUT Q12H [facility] Last Admin: 09/11/21 00:08 Dose: 5,000 unit Documented by: Ampicillin Sodium/Sulbactam (Sodium 3 gm/ Sodium Chloride) 100 mls @ 200 mls/hr IV Q8H [facility] Last Admin: 09/11/21 06:41 Dose: 200 mls/hr Documented by: Lisinopril (Lisinopril 5 Mg Tablet) 5 mg PO DAILY [facility]; Protocol Last Admin: 09/11/21 08:04 Dose: Not Given Documented by: Non-Formulary Medication (Telotristat Etiprate [Xermelo]) 250 mg PO TID [facility] Omeprazole (Omeprazole 20 Mg/10 Ml Susp.Recon) 10 mg PO BID@0630,1630 [facility] Last Admin: 09/11/21 08:02 Dose: Not Given Documented by: Ondansetron HCl (Ondansetron Hcl 4 Mg/2 Ml Vial) 4 mg IVPUSH Q8H PRN PRN Reason: Nausea and Vomiting Sodium Chloride (0.9 % Sodium Chloride Flush 3 Ml Syringe) 3 ml IVFLUSH QSHIFT [facility] Last Admin: 09/11/21 07:21 Dose: 3 ml Documented by: Venlafaxine HCl (Venlafaxine Hcl Er 75 Mg Cap.Er.24h) 75 mg PO DAILY [facility] Last Admin: 09/11/21 08:04 Dose: Not Given Documented by: Home Medications Medication Instructions Recorded Confirmed Last Taken Type telotristat etiprate 250 mg tablet 250 mg PO TID tab 08/16/20 09/10/21 09/10/21 History (Xermelo) ondansetron HCl 8 mg tablet 8 mg PO Q8H PRN 10/15/20 09/10/21 09/10/21 History Physical Exam Vital Signs: Vital Signs: Last Vital Signs Temp 98.1 F 09/11/21 07:18 Pulse 63 09/11/21 07:18 Resp 15 09/11/21 07:18 BP 159/62 H 09/11/21 07:18 Pulse Ox 93 09/11/21 07:18 BMI result Body Mass Index 22.6 GENERAL APPEARANCE: Ill-appearing. NECK: no carotid bruit, no obvious jugular venous distention. SKIN: no suspicious lesions, warm and dry. HEART: no murmurs, regular rate and rhythm. LUNGS: clear to auscultation bilaterally. ABDOMEN: soft, nontender. EXTREMITIES: no edema. PERIPHERAL PULSES: equal. NEUROLOGIC: No gross deficits, AAO X 3 Objective Labs and Meds Result diagrams: 09/11/21 07:07 09/11/21 07:07 Lab results: Laboratory Results - last 24 hr 09/10/21 09/10/21 09/10/21 13:51 13:51 18:10 WBC 3.3 L RBC 3.67 L Hgb 10.4 L Hct 32.9 L MCV 89.6 MCH 28.3 MCHC 31.6 RDW 14.1 Plt Count 142 L MPV 9.7 Immature Gran % (Auto) 0.3 Neut % (Auto) 80.6 H Lymph % (Auto) 7.7 L [place] % (Auto) 8.0 Eos % (Auto) 2.8 Baso % (Auto) 0.6 Lymph # (Auto) 0.3 L [place] # (Auto) 0.3 Eos # (Auto) 0.1 Baso # (Auto) 0.0 Abs Immat Gran (auto) 0.01 Absolute Neuts (auto) 2.6 Absolute Nucleated RBC 0.000 Nucleated RBC % (auto) 0.0 Sodium 140 Potassium 3.8 Chloride 104 Carbon Dioxide 29 Anion Gap 11 L BUN 16 Creatinine 1.04 Estim Creat Clear Calc 48.7 Estimated GFR 54 Random Glucose 119 H Lactic Acid 0.8 Calcium 9.2 Total Bilirubin 0.6 Direct Bilirubin 0.2 AST 55 H ALT 42 H Alkaline Phosphatase 99 Troponin I High Sens B-Natriuretic Peptide Total Protein 6.9 Albumin 4.1 COVID-19 (JESSICA) COVID-19 Clin Com 09/10/21 09/10/21 09/10/21 20:09 20:09 22:38 WBC RBC Hgb Hct MCV MCH MCHC RDW Plt Count MPV Immature Gran % (Auto) Neut % (Auto) Lymph % (Auto) [place] % (Auto) Eos % (Auto) Baso % (Auto) Lymph # (Auto) [place] # (Auto) Eos # (Auto) Baso # (Auto) Abs Immat Gran (auto) Absolute Neuts (auto) Absolute Nucleated RBC Nucleated RBC % (auto) Sodium Potassium Chloride Carbon Dioxide Anion Gap BUN Creatinine Estim Creat Clear Calc Estimated GFR Random Glucose Lactic Acid Calcium Total Bilirubin Direct Bilirubin AST ALT Alkaline Phosphatase Troponin I High Sens 5.3 B-Natriuretic Peptide 322 H Total Protein Albumin COVID-19 (JESSICA) Negative COVID-19 Clin Com See Note 09/11/21 09/11/21 07:07 07:07 WBC 2.8 L RBC 3.68 L Hgb 10.5 L Hct 32.7 L MCV 88.9 MCH 28.5 MCHC 32.1 RDW 14.3 Plt Count 134 L MPV 10.0 Immature Gran % (Auto) 0.4 Neut % (Auto) 89.2 H Lymph % (Auto) 6.1 L [place] % (Auto) 3.9 Eos % (Auto) 0.0 Baso % (Auto) 0.4 Lymph # (Auto) 0.2 L [place] # (Auto) 0.1 Eos # (Auto) 0.0 Baso # (Auto) 0.0 Abs Immat Gran (auto) 0.01 Absolute Neuts (auto) 2.5 Absolute Nucleated RBC 0.000 Nucleated RBC % (auto) 0.0 Sodium 143 Potassium 3.9 Chloride 102 Carbon Dioxide 26 Anion Gap 19 BUN 16 Creatinine 1.05 Estim Creat Clear Calc 48.3 Estimated GFR 54 Random Glucose 120 H Lactic Acid Calcium 9.2 Total Bilirubin Direct Bilirubin AST ALT Alkaline Phosphatase Troponin I High Sens B-Natriuretic Peptide Total Protein Albumin COVID-19 (JESSICA) COVID-19 Clin Com Imaging Radiologist's impression: Impressions Chest CT 09/10/21 16:59 IMPRESSION: 1. Sgddm-sq-zivxqegs right greater than left pleural effusions. Consolidation of the lung bases. Moderate interlobular septal thickening with a degree of peripheral nodularity. Findings are suggestive of developing pulmonary edema with or without interstitial developing pulmonary metastatic lesions. 2. Hepatic heterogeneity with redemonstrated lesion in the lateral aspect of the right hepatic lobe. As previously noted, this lesion has demonstrated progressive increase in size over multiple exams. 3. No demonstrated focal lesion, collection, lymphadenopathy, or abnormal enhancement within the soft tissues of the neck. Soft Tissue Neck CT 09/10/21 16:59 IMPRESSION: 1. Zarlu-hu-eczzzolo right greater than left pleural effusions. Consolidation of the lung bases. Moderate interlobular septal thickening with a degree of peripheral nodularity. Findings are suggestive of developing pulmonary edema with or without interstitial developing pulmonary metastatic lesions. 2. Hepatic heterogeneity with redemonstrated lesion in the lateral aspect of the right hepatic lobe. As previously noted, this lesion has demonstrated progressive increase in size over multiple exams. 3. No demonstrated focal lesion, collection, lymphadenopathy, or abnormal enhancement within the soft tissues of the neck. Assessment and Plan (1) Acute CHF: Status: Acute (2) Dysphagia: Status: Acute (3) Aspiration pneumonia of both lower lobes: Status: Acute Plan Pleasant 56-year-old female who is presenting to hospital with shortness of breath. She is being treated as aspiration as well as congestive heart failure. There are bilateral effusions on her CT scan and some clinical features pointing to her heart failure. She has background of carcinoid tumor which is malignant with liver metastasis. Overall does not look very overloaded right now. I agree with continuing IV diuretics. Blood pressure is elevated and this needs better controlled. Increasing the lisinopril to 10 mg once a day. If blood pressure continues to be elevated then I would favor adding some nitrates which may help her filling pressures and will add Imdur 30 mg once a day. We will repeat echocardiogram on her to assess LV for any cardiomyopathy. She has a rate-related bundle branch block which will develop if she develops any tachycardia. Thank you for allowing me to participate in the care of your patient. Please feel free to contact me if you have any questions. Procedures Date of Service Date of Service: 09/11/21
--- NOTE | 2021-09-11 09:52 | MHC.CM.PN ---
Met with patient and , Dewayne, in regards to discharge planning. Patient lives with , ambulates independently and had no services prior to coming to the hospital. Patient is currently on oxygen but not at baseline. Patient is active with [facility] [place]. PCP verified. HCP verified to be on file. Patient received 3 Moderna vaccines. IMM explained and signed. RAGMAN eval is ordered and pending due to dysphagia. Dewayne will transport patient home when medically stable. Continue to monitor for d/c needs.
--- NOTE | 2021-09-11 10:00 | CA_ITS ---
Transthoracic Echocardiogram Patient (Last, First, Middle): Berta Kirkland M Gender: Female Date of : 1965 Age: 56 Procedure Date: 09/11/2021 Procedure Type: Transthoracic Echocardiogram Location: [facility] [place] Height: 160.02 cm Weight: 58.06 kg BSA: 1.60 m2 Heart Rate: bpm BP: 138 / 76 mmHg [employer] Machine Operator: VH/OT Referring MD: Tracie Wild MD Symptoms: right heart failure? Study Quality: Fair Conclusions: - Normal left ventricular size, thickness, and systolic function. The visually estimated ejection fraction is between 55-60%. - Abnormal diastolic function is noted. E/E prime ratio is >15, consistent with elevated filling pressures. - Normal right ventricular cavity size and systolic function. - The left atrium is severely dilated. - There is moderate aortic valve regurgitation. - There is mild anterior and posterior mitral leaflet thickening. Posterior mitral valve leaflet is immobile. There is moderate MR. There is flow acceleration across the mitral valve with MG of 4 mm Hg at HR of 71 beats/min. - Moderately elevated right atrial pressure. Mild pulmonary hypertension is present. Findings Left Ventricle Normal left ventricular size, thickness, and systolic function. The visually estimated ejection fraction is between 55-60%. There is no evidence of regional wall motion abnormalities. There is paradoxical septal motion consistent with a left bundle branch block. Abnormal diastolic function is noted. E/E prime ratio is >15, consistent with elevated filling pressures. Right Ventricle Normal right ventricular cavity size and systolic function. Atria The left atrium is severely dilated. Aortic Valve The aortic valve was not well visualized. There is no aortic valve stenosis. There is moderate aortic valve regurgitation. Mitral Valve There is mild anterior and posterior mitral leaflet thickening. Posterior mitral valve leaflet is immobile. There is moderate MR. There is flow acceleration across the mitral valve with MG of 4 mm Hg at HR of 71 beats/min. Pulmonic Valve Normal pulmonic valve structure and function. There is trace pulmonic valve regurgitation. Tricuspid Valve Normal tricuspid valve structure and function. There is mild tricuspid valve regurgitation. Moderately elevated right atrial pressure. Mild pulmonary hypertension is present. Great Vessels There is mild dilatation of the ascending aorta measuring 3.90 cm. The visualized portions of the pulmonary artery and branches are normal. Venous The inferior vena cava is dilated and collapses greater than 50% with inspiration. Pericardium/Pleural There is no evidence of pericardial effusion. Prior Study Comparison Significant changes compared to prior study. Elevated filling pressures, moderate MR and AR. Measurements 2D Linear Measurements IVSd: 1.02 0.6-0.9/0.6-1.0 cm LVIDd: 4.70 3.9-5.3/4.2-5.9 cm LVIDd Index: 2.94 2.4-3.2/2.2-3.1 cm/m2 LVIDs: 3.54 2.0-3.6 cm LVPWd: 0.87 0.7-1.1 cm Ao Root: 3.40 2.1-3.5 cm LA Diam: 4.20 2.7-3.8/3.0-4.0 cm LAIDs Index: 2.63 1.5-2.3 cm/m2 LV Mass: 189.26 67-162/88-224 g LV Mass Index: 118.29 43-95/49-115 g/m2 LVOT Diam: 2.00 3.0+(-)1.3 cm Mitral Valve MV VTI: 0.53 MV Pk Billy: 1.55 MV Mn Billy: 1.02 MV Pk Grad: 10.00 MV Mn Grad: 5.00 MV Pk E: 1.40 MV PK A: 1.31 MV Decel Time: 229.00 E/A: 1.10 E'Lateral: 5.66 E'Medial: 4.79 E/E' Med: 29.20 E/E' Lat: 24.70 PHT: 67.00 MVA PHT: 3.28 MVA Continuity: 1.81 Decel Loup: 6.09 MR Vol - PW Dopp: 36.60 MR VTI: 1.83 MR ERO: 20.00 MR Alias Billy: 0.31 MR RAD: 0.70 Aortic Valve AoV Pk Billy: 1.74 AoV Mn Billy: 1.08 AoV VTI: 0.36 AoV Pk Grad: 12.00 Aov Mn Grad: 6.00 CARLOS Cont.VTI: 2.67 AI Pk Billy: 4.81 AI Loup: 3.18 LVOT LVOT Pk Billy: 1.49 LVOT Mn Billy: 0.96 LVOT VTI: 0.31 LVOT Pk Grad: 9.00 LVOT Mn Grad: 4.00 LVOT Diam: 2.00 LVOT Area: 3.14 Diastolic Function MV Pk E: 1.40 MV Pk A: 1.31 E/A: 1.10 E'Medial: 4.79 E/E' Med: 29.20 E' Laterial: 5.66 E/E' Lat: 24.70 Right Ventricle TAPSE (mm): 28.00 TVS' Billy: 13.00 Tricuspid Valve TR Pk Billy: 2.74 TR Pk Grad: 30.00 RVSP: 40.00 Great Vessels Aorta Ao Root-2D: 3.40 2.0-3.7 cm Ao Asc: 3.90 2.1-3.4 cm Pulmonary Valve PV Pk Billy: 0.85 Peak PV Grad: 3.00 Updated in Other Vendor System with Status of Final Peterson Zapata MD electronically signed on 09/11/2021 8:18:17 PM with status of Final
--- NOTE | 2021-09-11 10:51 | PM.GICN ---
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 Patient had noted recently worsening difficulty with swallowing liquids and solids for 3 d. She has pain with swallowing and difficulty for food to go down. Aslo noted increased SOB, with orthopnea, PND, dry cough, and? intermittent bouts of sharp stabbing chest pain, lasting few seconds, resolving spontaneously. no fever but having chills. She has chronic nausea and diarrhea for which she takes telotristat. she has been receiving radiaiton treatment for her carcinoid tumour, with most recent RX in Jul 2021 (sounds like she is getting radioligand therapy) since admission she recieved lasix. LABS: WBC count of 3.3, hemoglobin of 10.4, AST of 55, ALT of 42, BNP of 322 Imaging: CT: small to moderate right greater than left pleural effusion, consolidation of the lung bases, moderate intralobar septal thickening with a degree of peripheral nodularity, no neck masses or leisons. Prior: Patient had EGD 2020 with hyperplastic polyp and H pylori successfully treated MBS and speech assessment with no aspiration but mild oral pharyngeal dysphagia Review of Systems Review of Systems: Yes all other systems are reviewed and are negative PMFSH Past Medical History Medical History Carcinoid tumor Depression Eczema Encounter for Medicare annual wellness exam History of headache HTN (hypertension) Hx of left bundle branch block Lab test negative for COVID-19 virus Liver metastasis Malignant carcinoid tumor of ileum Family History Family History Brother History of throat cancer Maternal Aunt History of colon cancer Mother Hx of completed stroke Father No problems noted. Family/Other Substance use disorder Surgical History Surgical History H/O colonoscopy History of History of endometrial ablation History of esophagogastroduodenoscopy (EGD) History of right hemicolectomy (~01/2018) Hx of dilation and curettage Hx of eye surgery Hx of tubal ligation Social History Social History Household Members: Family Housing: House Are you a primary resident care assistant to a significant other at home: No Do you presently have visiting nurse or other home services: No Alcohol intake: never Patient Tobacco Use Status: Never used Tobacco e-Cigarette/Vaping Use: Never Used Second Hand Smoke Exposure: No service: No Current occupational status: disabled Meds Allergies Allergy/AdvReac Type Severity Reaction Status Date / Time oxycodone Allergy Intermediate hives Verified 07/11/21 08:58 Active Medications: Current Medications Acetaminophen (Acetaminophen 325 Mg Tablet) 650 mg PO Q6H PRN PRN Reason: Pain, Mild (Pain Scale 1-3) Carvedilol (Carvedilol 6.25 Mg Tablet) 6.25 mg PO BID [facility]; Protocol Last Admin: 09/11/21 08:04 Dose: Not Given Documented by: Docusate Sodium (Docusate Sodium 100 Mg Capsule) 100 mg PO DAILY PRN PRN Reason: Constipation Furosemide (Furosemide 40 Mg/4 Ml Vial) 40 mg IVPUSH BID@0900,1800 [facility]; Protocol Last Admin: 09/11/21 09:01 Dose: Not Given Documented by: Heparin Sodium (Porcine) (Heparin Sodium,Porcine 5,000 Unit/Ml Vial) 5,000 unit SUBCUT Q12H [facility] Last Admin: 09/11/21 00:08 Dose: 5,000 unit Documented by: Ampicillin Sodium/Sulbactam (Sodium 3 gm/ Sodium Chloride) 100 mls @ 200 mls/hr IV Q8H [facility] Last Admin: 09/11/21 06:41 Dose: 200 mls/hr Documented by: Lisinopril (Lisinopril 5 Mg Tablet) 5 mg PO DAILY [facility]; Protocol Last Admin: 09/11/21 08:04 Dose: Not Given Documented by: Non-Formulary Medication (Telotristat Etiprate [Xermelo]) 250 mg PO TID [facility] Omeprazole (Omeprazole 20 Mg/10 Ml Susp.Recon) 10 mg PO BID@0630,1630 [facility] Last Admin: 09/11/21 08:02 Dose: Not Given Documented by: Ondansetron HCl (Ondansetron Hcl 4 Mg/2 Ml Vial) 4 mg IVPUSH Q8H PRN PRN Reason: Nausea and Vomiting Sodium Chloride (0.9 % Sodium Chloride Flush 3 Ml Syringe) 3 ml IVFLUSH QSHIFT [facility] Last Admin: 09/11/21 07:21 Dose: 3 ml Documented by: Venlafaxine HCl (Venlafaxine Hcl Er 75 Mg Cap.Er.24h) 75 mg PO DAILY [facility] Last Admin: 09/11/21 08:04 Dose: Not Given Documented by: Home Medications Medication Instructions Recorded Confirmed Last Taken Type telotristat etiprate 250 mg tablet 250 mg PO TID tab 08/16/20 09/10/21 09/10/21 History (Xermelo) ondansetron HCl 8 mg tablet 8 mg PO Q8H PRN 10/15/20 09/10/21 09/10/21 History Physical Exam Vital Signs: Vital Signs: Last Vital Signs Temp 98.1 F 09/11/21 07:18 Pulse 63 09/11/21 07:18 Resp 15 09/11/21 07:18 BP 159/62 H 09/11/21 07:18 Pulse Ox 93 09/11/21 07:18 BMI result Body Mass Index 22.6 Const: Other: cachectic General: cooperative and no acute distress Orientation/consciousness: patient oriented x3 Eyes: General: appearance normal, both eyes and all related structures Pupils: Equal, round and reactive pupils present Resp: Other: Appears dyspneic Effort & Inspection: normal respiratory effort Auscultation: crackles on the left at the base Cardio: Rate: regular rate Rhythm: regular rhythm Heart sounds: Murmur heart sound present (left sternal edge, diastolic) GI: Palpation (GI): Soft to palpation Auscultation: normal bowel sounds Skin: General skin exam: no rashes or lesions noted Neuro: General: patient oriented x3 Cranial nerves: Yes Equal, round and reactive pupils present Cognition (Neuro): normal cognition Extrem: General: Yes normal to inspection and Yes no pedal edema Psych: Appearance: grossly normal Results Labs CBC & Chem 7: 09/11/21 07:07 09/11/21 07:07 Labs: Short CBC 09/10/21 09/11/21 Range/Units 13:51 07:07 WBC 3.3 L 2.8 L (4.8-10.8) X10*3/uL Hgb 10.4 L 10.5 L (12.0-16.0) g/dl Hct 32.9 L 32.7 L (37.0-47.0) % Plt Count 142 L 134 L (160-400) X10*3/uL BMP 09/10/21 09/11/21 13:51 07:07 Sodium 140 143 Potassium 3.8 3.9 Chloride 104 102 Carbon Dioxide 29 26 BUN 16 16 Creatinine 1.04 1.05 Calcium 9.2 9.2 Liver Function 09/10/21 Range/Units 13:51 Total Bilirubin 0.6 (0.0-1.0) mg/dL Direct Bilirubin 0.2 (0.0-0.5) mg/dL AST 55 H (5-31) U/L ALT 42 H (0-31) U/L Alkaline Phosphatase 99 (39-117) U/L Albumin 4.1 (3.5-5.0) g/dL Assessment and Plan (1) Dysphagia: Status: Acute Plan 1/ Dysphagia and odynophagia, on backgound of metastatic carcinoid as well as signs of heart failure. No visible oral thrush seen on exam, but ddx; candidal esophagitis, HSV, CMV esophagitis, oral pharnygeal dysphagia, esophageal mets, stricture Carcinoid can be associated with valvuar disease and elizabeth failure, asthma, but this should not normally affect swallowing PLAN: 1/ Still getting cardiology work up and not optimized in terms of resp function--cont to treat as doing and diurese 2/ await echo 3/ can trt fluconazole empirically if no better then EGD, in meantime Ba swallow with pill study Procedures Date of Service Date of Service: 09/11/21
[2021-09-11] MEDS: ondansetron HCL 4 MG/2 ML VIAL IVPUSH ×2 (12:10→22:07)
[2021-09-11] MEDS: lisinopriL 5 MG TABLET PO (14:54)
[2021-09-11] MEDS: Fluconazole in NaCl,Iso-Osm 200 MG/100 ML PIGGYBACK 100 MG IV (14:55)
--- NOTE | 2021-09-11 16:44 | P.PNIM_ITS ---
Subjective Subjective Date of Service: 09/11/21 Interval History: Dyspneic + dysphagic [facility] Review of Systems Review of Systems: Yes all other systems are reviewed and are negative Physical Exam Vital Signs: Vital Signs: Last Vital Signs Temp 97.1 F 09/11/21 16:00 Pulse 77 09/11/21 16:00 Resp 17 09/11/21 16:00 BP 150/68 H 09/11/21 16:00 Pulse Ox 93 09/11/21 16:00 BMI result Body Mass Index 22.6 Gen: in no acute distress HEENT: sclera anicteric, moist mucus membranes Neck: supple, no JVD Lungs: diminished at bases bilaterally Heart: regular rate and rhythm, no murmurs Abd: soft, non-tender, non-distended Ext: no edema Skin: warm/well-perfused Neuro: alert and oriented x3, no focal findings Psych: appropriate affect Objective Data Active Medications Acetaminophen (Acetaminophen 325 Mg Tablet) 650 mg PO Q6H PRN PRN Reason: Pain, Mild (Pain Scale 1-3) Carvedilol (Carvedilol 6.25 Mg Tablet) 6.25 mg PO BID [facility]; Protocol Last Admin: 09/11/21 08:04 Dose: Not Given Documented by: REAGAN Non-Admin Reason: NPO Docusate Sodium (Docusate Sodium 100 Mg Capsule) 100 mg PO DAILY PRN PRN Reason: Constipation Furosemide (Furosemide 40 Mg/4 Ml Vial) 40 mg IVPUSH BID@0900,1800 [facility]; Protocol Last Admin: 09/11/21 09:01 Dose: Not Given Documented by: REAGAN Non-Admin Reason: Duplicate Order Heparin Sodium (Porcine) (Heparin Sodium,Porcine 5,000 Unit/Ml Vial) 5,000 unit SUBCUT Q12H [facility] Last Admin: 09/11/21 11:03 Dose: 5,000 unit Documented by: REAGAN Ampicillin Sodium/Sulbactam (Sodium 3 gm/ Sodium Chloride) 100 mls @ 200 mls/hr IV Q8H [facility] Last Infusion: 09/11/21 11:38 Dose: 0 mls/hr Documented by: ANGELA Fluconazole 100 mg/ IV (Miscellaneous Supplies) 50 mls @ 50 mls/hr IV Q24H GUY Dextrose/Sodium Chloride (D51/2ns) 1,000 mls @ 100 mls/hr IVCONT .Q10H GUY Lisinopril (Lisinopril 10 Mg Tablet) 10 mg PO DAILY [facility]; Protocol Non-Formulary Medication (Telotristat Etiprate [Xermelo]) 250 mg PO TID [facility] Omeprazole (Omeprazole 20 Mg/10 Ml Susp.Recon) 10 mg PO BID@0630,1630 [facility] Last Admin: 09/11/21 08:02 Dose: Not Given Documented by: REAGAN Non-Admin Reason: NPO Ondansetron HCl (Ondansetron Hcl 4 Mg/2 Ml Vial) 4 mg IVPUSH Q8H PRN PRN Reason: Nausea and Vomiting Last Admin: 09/11/21 12:10 Dose: 4 mg Documented by: VALERIE Sodium Chloride (0.9 % Sodium Chloride Flush 3 Ml Syringe) 3 ml IVFLUSH QSHIFT [facility] Last Admin: 09/11/21 07:21 Dose: 3 ml Documented by: REAGAN Venlafaxine HCl (Venlafaxine Hcl Er 75 Mg Cap.Er.24h) 75 mg PO DAILY [facility] Last Admin: 09/11/21 08:04 Dose: Not Given Documented by: REAGAN Non-Admin Reason: NPO Labs CBC & Chem 7: 09/11/21 07:07 09/11/21 07:07 Labs: Laboratory Results - last 24 hr 09/10/21 09/10/21 09/10/21 18:10 20:09 22:38 MCV MCH MCHC RDW Plt Count MPV Immature Gran % (Auto) Neut % (Auto) Lymph % (Auto) [place] % (Auto) Eos % (Auto) Baso % (Auto) Lymph # (Auto) [place] # (Auto) Eos # (Auto) Baso # (Auto) Abs Immat Gran (auto) Absolute Neuts (auto) Absolute Nucleated RBC Nucleated RBC % (auto) Anion Gap Estim Creat Clear Calc Estimated GFR Random Glucose Lactic Acid 0.8 Calcium B-Natriuretic Peptide 322 H COVID-19 (JESSICA) Negative COVID-19 Clin Com See Note 09/11/21 09/11/21 07:07 07:07 MCV 88.9 MCH 28.5 MCHC 32.1 RDW 14.3 Plt Count 134 L MPV 10.0 Immature Gran % (Auto) 0.4 Neut % (Auto) 89.2 H Lymph % (Auto) 6.[address] [place] % (Auto) 3.9 Eos % (Auto) 0.0 Baso % (Auto) 0.4 Lymph # (Auto) 0.[address] [place] # (Auto) 0.1 Eos # (Auto) 0.0 Baso # (Auto) 0.0 Abs Immat Gran (auto) 0.01 Absolute Neuts (auto) 2.5 Absolute Nucleated RBC 0.000 Nucleated RBC % (auto) 0.0 Anion Gap 19 Estim Creat Clear Calc 48.3 Estimated GFR 54 Random Glucose 120 H Lactic Acid Calcium 9.2 B-Natriuretic Peptide COVID-19 (JESSICA) COVID-19 Clin Com Assessment and Plan (1) Acute CHF: Status: Acute (2) Dysphagia: Status: Acute (3) Aspiration pneumonia of both lower lobes: Status: Acute Plan hospital d#2 56yo F with metastatic carcinoid tumor on ?XRT + Xermelo presenting with dysphagia and admitted for PNA + CHF # dysphagia - per GI, barium swallow with pill tomorrow; to consider EGD once CHF status improves; empiric treatment for candidiasis with fluconazole d#1 - per SEAM TAPER MACHINE, MBSS tomorrow - ?radiation esophagitis- [facility] treatment regimen # aspiration PNA - amp/sulbactam d#2 # acute HF # pleural effusions - continue diuresis with furosemide, Cardiology consulted, TTE pending; add Imdur if BP persistently elevated; continue carvedilol + lisinopril # acute hypoxic resp failure - wean O2 as darwin # HTN - continue carvedilol + lisinopril # carcinoid syndrome - continue Xermelo from home # depression - continue venlafaxine # VTE ppx - UFH Quality Stroke Does the patient have a stroke diagnosis?: No VTE Prior VTE?: No VTE Risk Level:: Medical - moderate - high VTE Device Contraindication: Treatment Not Indicated VTE Drug Contraindication: N/A - Med Ordered
--- NOTE | 2021-09-11 17:55 | MHC.SL.SWA ---
Speech Pathologist Impression: Risk of Aspiration Oralpharyngeal Dysphagia Risk of Aspiration Due to: Medically Fragile History of Pneumonia Dysphasia Diet Status: No Change Liquid Consistency and Strategies for Safe Swallow: Liquid Intake Recommendation: NPO Liquid Intake Strategies: Solid Food Consistency: Dietary Recommendations: NPO Additional Modifications to Solid Foods: REFRIGERATING OILER spoke with MD- Patient is currently NPO for barium swallow study tomorrow. Modified barium swallow study (MBSS) with REFRIGERATING OILER is scheduled at 10 am tomorrow after barium swallow study with G.I. Further recommendations to follow. Oral Medication Intake: NPO Compensatory Strategies and Precautions to be Taken for Safe Swallow: Supervision While Eating and Drinking for Safe Swallow: PO with REFRIGERATING OILER Foods to Avoid: Swallowing Recommended Treatments: Compens. Strategy Educat. Recommendation for Speech: Inpatient Speech Therapy Modified Barium Swallow Study - Inpatient Comment: Frequency/Duration: M-F Date Range for Service Req: Timeline to reassess: Film Washer Clinican/Clinical Fellow: No Supervisory Statement: I have reviewed and agree with the student/clinical fellow's documentation: N/A Speech Language Pathologist: Reema Snyder M.A., CCC-REFRIGERATING OILER
[2021-09-11] MEDS: carvediloL 6.25 MG TABLET PO (22:01)
[2021-09-12 03:48] VITALS: BP 144/62; PULSE 66; RESP 17; TEMP 36.3; O2SAT 94
[2021-09-12 07:11] LABS: B Type Natriuretic Peptide 189 pg/mL (<100)
[2021-09-12 07:17] LABS: Anion Gap 11 (12-20); Blood Urea Nitrogen 17 mg/dL (9-16); Calcium 8.5 mg/dL (8.4-10.2); Carbon Dioxide 32 mmol/L (22-29); Chloride 99 mmol/L (96-108); Creatinine Clr Calc Pharmacy 50.2; Estimated Glomerular Filt Rate 56; Glucose Random 106 mg/dL (60-115); Magnesium 1.8 mg/dL (1.6-2.6); Potassium 3.1 mmol/L (3.3-5.1); Sodium 140 mmol/L (135-145)
[2021-09-12] MEDS: Ampicillin Sodium/Sulbactam Na 3 GM in 0.9 % Sodium Chloride 100 ML IV ×3 (07:38→22:49)
[2021-09-12 07:57] VITALS: BP 135/60; PULSE 60; RESP 18; TEMP 36.8; O2SAT 91
[2021-09-12] MEDS: Heparin Sodium,Porcine 5,000 UNIT/ML VIAL 5000 UNIT SUBCUT ×2 (10:43→20:32)
[2021-09-12] MEDS: Furosemide 40 MG/4 ML VIAL IVPUSH ×2 (10:45→17:10)
--- NOTE | 2021-09-12 10:48 | P.PNCA_ITS ---
Subjective Subjective Date of Service: 09/12/21 Interval history: Feeling better today. Still short of breath. Echocardiography has shown moderate aortic valve regurgitation, posterior mitral valve immobility with at least moderate mitral valve regurgitation. Physical Exam Vital Signs: Last Vital Signs Temp 98.2 F 09/12/21 07:57 Pulse 60 09/12/21 07:57 Resp 18 09/12/21 07:57 BP 135/60 09/12/21 07:57 Pulse Ox 91 L 09/12/21 07:57 BMI result Body Mass Index 22.6 GENERAL APPEARANCE:? In no distress. NECK: no carotid bruit, + jugular venous distention. SKIN: no suspicious lesions, warm and dry. HEART: Systolic murmur at the apex regular rate and rhythm. LUNGS: Few crackles at bases. ABDOMEN: soft, nontender. EXTREMITIES: no edema. PERIPHERAL PULSES: equal. NEUROLOGIC: No gross deficits, AAO X 3 Objective Labs and Meds Result diagrams: 09/11/21 07:07 09/12/21 05:56 Lab results: Laboratory Results - last 24 hr 09/12/21 09/12/21 05:56 05:56 Sodium 140 Potassium 3.1 L D Chloride 99 Carbon Dioxide 32 H Anion Gap 11 L BUN 17 H Creatinine 1.01 Estim Creat Clear Calc 50.2 Estimated GFR 56 Random Glucose 106 Calcium 8.5 D Magnesium 1.8 B-Natriuretic Peptide 189 H Progress Note: A&P Assessment and plan (1) Acute CHF: Status: Acute (2) Carcinoid heart disease: Status: Acute Plan 56-year-old female with malignant carcinoid with liver metastasis who is presenting with shortness of breath and dysphagia. Echocardiography showing mitral valve regurgitation with restricted posterior leaflet. There is clear thickening of both leaflets and carcinoid involvement o f the mitral valve. She also has moderate aortic valve insufficiency. With diuretics she is improving. I will continue diuretics at this stage. Repeat potassium and magnesium. Increasing lisinopril to 20 mg once a day. If blood pressure allows then I would add 30 mg of Imdur. Thank you for allowing me to participate in the care of your patient. Please feel free to contact me if you have any questions. Fall Risk Details Current Medications: Current Medications Acetaminophen (Acetaminophen 325 Mg Tablet) 650 mg PO Q6H PRN PRN Reason: Pain, Mild (Pain Scale 1-3) Carvedilol (Carvedilol 6.25 Mg Tablet) 6.25 mg PO BID [facility] OF [facility]; Protocol Last Admin: 09/11/21 22:01 Dose: 6.25 mg Documented by: Docusate Sodium (Docusate Sodium 100 Mg Capsule) 100 mg PO DAILY PRN PRN Reason: Constipation Furosemide (Furosemide 40 Mg/4 Ml Vial) 40 mg IVPUSH BID@0900,1800 ON [facility] OF [facility]; Protocol Last Admin: 09/11/21 17:19 Dose: 40 mg Documented by: Heparin Sodium (Porcine) (Heparin Sodium,Porcine 5,000 Unit/Ml Vial) 5,000 unit SUBCUT Q12H ON [facility] OF [facility] Last Admin: 09/11/21 22:01 Dose: 5,000 unit Documented by: Ampicillin Sodium/Sulbactam (Sodium 3 gm/ Sodium Chloride) 100 mls @ 200 mls/hr IV Q8H [facility] Last Admin: 09/12/21 07:38 Dose: 200 mls/hr Documented by: Fluconazole 100 mg/ IV (Miscellaneous Supplies) 50 mls @ 50 mls/hr IV Q24H [facility] OF [facility] Lisinopril (Lisinopril 10 Mg Tablet) 10 mg PO DAILY [facility]; Protocol Non-Formulary Medication (Telotristat Etiprate [Xermelo]) 250 mg PO TID ON [facility] OF [facility] Omeprazole (Omeprazole 20 Mg/10 Ml Susp.Recon) 10 mg PO BID@0630,1630 ON [facility] OF [facility] Last Admin: 09/12/21 05:56 Dose: 10 mg Documented by: Ondansetron HCl (Ondansetron Hcl 4 Mg/2 Ml Vial) 4 mg IVPUSH Q8H PRN PRN Reason: Nausea and Vomiting Last Admin: 09/11/21 22:07 Dose: 4 mg Documented by: Sodium Chloride (0.9 % Sodium Chloride Flush 3 Ml Syringe) 3 ml IVFLUSH QSHIFT ON [facility] OF [facility] Last Admin: 09/12/21 00:43 Dose: Not Given Documented by: Venlafaxine HCl (Venlafaxine Hcl Er 75 Mg Cap.Er.24h) 75 mg PO DAILY [facility] Last Admin: 09/11/21 08:04 Dose: Not Given Documented by: Time Spent With Patient Time: Total time spent is greater than 50% in coordination of care (as documented) at patient's floor/unit and/or counseling patient: Time with patient: 25 - 35 minutes Progress Note: Quality Stroke Does the patient have a stroke diagnosis?: No Procedures Date of Service Date of Service: 09/12/21
[2021-09-12] MEDS: ondansetron HCL 4 MG/2 ML VIAL IVPUSH (10:51)
--- NOTE | 2021-09-12 11:22 | MHC.SL.IMP ---
Date of Plan of Treatment: 09/12/21 Onset of Symptoms/Illness: 07/11/19 Date Treatment Started: 09/11/21 Admitting Diagnosis: Admit: Bilateral aspiration pneumonia, right sided heart failure HX: Carcinoid tumor, depression, eczema, headache, hx left bundle branch block, liver metastasis, malignant carcinoid tumor of ileum, colonoscopy, , endometrial ablation, esophagogastroduodenoscopy, right hemicolectomy, eye surgery, tubal ligation Primary Speech & Language Diagnosis: R13.12 Oropharyngeal Phase Dysphagia Reason for Today's Visit: 87196 Modified Barium Swallow Study Pre-evaluation Dietary Consistencies: Regular Pre-evaluation Liquid Consistency: Thin Pre-evaluation Medication Administration: Whole with Liquid Medical History: Carcinoid tumor, depression, eczema, headache, hx left bundle branch block, liver metastasis, malignant carcinoid tumor of ileum, colonoscopy, , endometrial ablation, esophagogastroduodenoscopy, right hemicolectomy, eye surgery, tubal ligation SUBJECTIVE: Patient is a 56 year old female, being treated with radiation for carcinoid tumor/syndrome, last radiation July 2021. Patient presented in the ED on 09/10 with dysphagia and odynophagia, admitted for bilateral pneumonia and right sided heart failure. She has had difficulty with solids in the past, but now experiences difficulty swallowing liquids as well and could barely swallow her pills. Patient reports feeling a knot in [her] throat. She reports that at times, she feels she is unable to get food or liquid down. She also describes intermittent pain when swallowing. [place] [facility] [place]- Noted flash penetration, mild oral residue, premature posterior escape of bolus, delayed swallow trigger, partial laryngeal elevation, mild pharyngeal stasis in valleculae and pyriforms- Patient was recommended regular solids and thin liquids with aspiration precautions. Patient reports that dysphagia has worsened since then. Oral Motor Exam Facial Symmetry: Symmetrical Facial Movement: Controlled Mouth Occlusion: Normal Oral-Facial Teeth Characteristics: Intact/Normal Oral-Facial Lip Pucker Description: Normal Oral-Facial Smile (Lips) Description: Normal Oral-Facial Puff Cheeks Description: Normal Tongue Size: Normal Tongue Excursion Description: Normal Tongue Range of Movement Description: Normal Tongue Speed of Movement Description: Normal Tongue Strength of Movement (against opposing pressure): Normal Tongue Movement Characteristics: Normal/Absent Is patient able to manage secretions?: Yes Food and Liquid Trials: Oral Impairment: Lip Closure: Did not test Oral Impairment: Tongue Control During Bolus Hold: 2=Posterior escape of less than half of bolus Oral Impairment: Bolus Preparation/Mastication: 0=Timely and efficient chewing and mashing Oral Impairment: Bolus Transport/Lingual Motion: 2=Slowed tongue motion Oral Impairment: Oral Residue: 2=Residue collection on oral structures Oral Impairment:Initiation of Pharyngeal Swallow: 3=Bolus head in pyriforms Pharyngeal Impairment: Soft Palate Elevation: 0=No bolus between soft palate (SP)/pharyngeal wall (PW) Pharyngeal Impairment: Laryngeal Elevation: 1=Partial thyroid cartilage/arytenoids to epiglottic petiole movement Pharyngeal Impairment: Anterior Hyoid Excursion: 1=Partial anterior movement Pharyngeal Impairment: Epiglottic Movement: 0=Complete inversion Pharyngeal Impairment: Laryngeal Vestibular Closure:: 0=Complete: no air/contrast in laryngeal vestibule Pharyngeal Impairment: Pharyngeal Stripping Wave: 0=Present: complete Pharyngeal Impairment: Pharyngeal Contraction: Did not test Pharyngeal Impairment: Pharyngoesophageal Segment Openin=Complete distension and complete duration: no obstruction of flow Pharyngeal Impairment: Tongue Base (TB) Retraction: 2=Narrow column of contrast/air between TB and posterior PW Pharyngeal Impairment: Pharyngeal Residue: 0=Complete pharyngeal clearance Pharyngeal Impairment: Esophageal Clearance Upright Position: Did not test Impressions and Recommendations Clinical Observations: OBJECTIVE: Time-out: performed at 10:06 Evaluation Start: 10:00; Stop: 10:06 Patient Positioning: Seated 70-90 degrees Viewing Planes: LATERAL ONLY Contrast: MBSImP? Standardized Protocol using commercially prepared, standardized Barium viscosities, including: Varibar? THIN LIQUID (40% w/v, <15 cps) , 1/2 Shortbread Cookie (1 x1 x.25 ) MBSImP ID: [id number] [facility] Results: Lip closure for intraoral bolus containment could not be assessed due to logistical reasons not related to physiologic impairment. Tongue control during bolus hold resulted in posterior escape of less than half of the bolus. Bolus preparation and mastication resulted in timely and efficient chewing and mashing. Bolus transport/lingual motion was with slowed tongue motion. Oral residue was a collection on oral structures. Initiation of the pharyngeal swallow occurred when the bolus head was in the pyriform sinuses. Soft palate elevation resulted in no bolus between the soft palate and the pharyngeal wall. Laryngeal elevation was decreased, with partial superior movement of the thyroid cartilage/partial approximation of the arytenoids to the epiglottic petiole. Anterior hyoid excursion demonstrated partial anterior movement. Epiglottic movement resulted in complete inversion. Laryngeal vestibular closure was complete, as indicated by no air or contrast within the laryngeal vestibule at the height of the swallow. Pharyngeal stripping wave was present and complete. Pharyngeal contraction could not be determined due to logistical reasons not related to physiologic impairment. Pharyngoesophageal segment opening was completely distended for complete duration with no obstruction of bolus flow. Tongue base retraction allowed a narrow column of contrast or air between the retracted tongue base and the posterior pharyngeal wall. Pharyngeal residue was not present. There was complete pharyngeal clearance. Esophageal clearance in the upright position could not be assessed due to logistical reasons not related to physiologic impairment. Oral Impairment Score: 9 (absence of score, component 1) Pharyngeal Impairment Score: 4 (absence of score, component 13) Esophageal Impairment Score: --- (absence of score, component 17) Laryngeal Penetration and Aspiration: Neither penetration nor aspiration was observed in today's study with Cookie, Thin. ASSESSMENT: Clinician Assessment: This exam was conducted by a multidisciplinary team, which included a speech language pathologist, radiologist, and radiology technicians. Patient was seated upright at 90 degree optimal position in chair for lateral view only. Patient trialed the following liquid and solid consistencies: 5 mL thin liquid barium, individual cup sip with bolus hold thin liquid barium, consecutive cup sip thin liquid barium, pureed solid (mixture applesauce with barium paste), ground solid (mixture chicken salad with barium paste), regular solid (Yolanda Doone cookie coated with barium paste), barium tablet washed down with thin liquid barium. Patient fed herself without any difficulties. Oral phase characterized by premature posterior escape of bolus, which pooled in valleculae and pyriform sinuses prior to initiation of swallow trigger, but did not enter airway. Mildly slowed anterior-posterior lingual transit of bolus. Mild lingual residue, considered to be within functional limits. Timely and efficient chewing pattern, characterized by piece meal deglutition pattern. Delayed pharyngeal swallow trigger. No nasopharyngeal reflux. Partial superior movement of thyroid cartilage and partial anterior hyoid excursion. Complete epiglottic inversion and complete laryngeal vestibular closure. No evidence of aspiration or penetration with solids and liquids. Complete pharyngeal clearance. No obstruction of flow through pharyngoesophageal segment opening. Liquid Intake Recommendation: Thin Liquid Intake Strategies: Small Sips Dietary Recommendations: Regular Medication Administration: Whole with Liquid Compensatory Strategies Recommended: Sitting Upright (90 deg) Small Bites and Sips Rate of Ingestion Change Supervision during eating and or drinking: None Needed Recommended Treatments: Compens. Strategy Educat. Recommendation for Speech Therapy: NA:Typical Evaluation Text Comment: PLAN: Intake Recommendations: Route: PO Diet Grade: Regular Liquid Consistencies: Thin Post-Study Functional Oral Intake Scale (FOIS): 7- Total oral intake with no restrictions Patient is recommended to resume unmodified diet REGULAR solids and THIN liquids. Pills to be taken whole with liquid. Patient may consider taking pills with pureed consistency d/t reported discomfort swallowing. Therapy Recommendations: Therapy will be discontinued TENDER LABOR to f/u 1x time to discuss MBSS results. Prognosis for Improvement: The prognosis for the patient to meet nutritional needs by mouth is good based on degree of impairment. Clinician - Supplemental, Miscellaneous Communication: It is important to note MBSS objective studies are snapshots in time and Patient function might vary with factors such as time of day or concomitant medical conditions. For this reason, the final treatment plan for this patient should rest with their medical care team. Additional recommendations should be considered with the totality of the Patient in mind. Thank for the opportunity to participate in the care of this patient. If you have any questions about the content of this report, please contact the [facility] at [facility]. Education: Education regarding findings from today's study and plans for therapy were provided to Patient only through Verbal Instruction. Understanding was expressed by the Patient only. Frequency/Duration: 1 f/u Date Range for Service Requested: Timeline to reassess: [place] Supervisor Clinician/Clinical Fellow: No Supervisory Statement: N/A Speech Language Pathologist: Reema Snyder M.A., CCC-TENDER LABOR
[2021-09-12 11:56] VITALS: BP 159/66; PULSE 63; RESP 18; TEMP 36.3; O2SAT 98
[2021-09-12] MEDS: Venlafaxine HCl ER 75 MG CAP.ER.24H PO (12:06)
[2021-09-12] MEDS: carvediloL 6.25 MG TABLET PO ×2 (12:06→20:32)
[2021-09-12] MEDS: lisinopriL 10 MG TABLET PO ×2 (13:19→16:09)
[2021-09-12] MEDS: Magnesium Sulfate/H2O 2 GM/50 ML PIGGYBACK IV (13:20)
[2021-09-12] MEDS: Potassium Chloride ER 20 MEQ TAB.ER.PRT 40 MEQ PO (13:20)
--- NOTE | 2021-09-12 14:05 | P.PNIM_ITS ---
Subjective Subjective Date of Service: 09/12/21 Interval History: No acute issues overnight. Still with dysphagia Review of Systems Denies CP Denies SOB Denies N/V/D Physical Exam Vital Signs: Vital Signs: Last Vital Signs Temp 97.3 F 09/12/21 11:56 Pulse 63 09/12/21 11:56 Resp 18 09/12/21 11:56 BP 159/66 H 09/12/21 11:56 Pulse Ox 98 09/12/21 11:56 BMI result Body Mass Index 22.6 Const: Other: NAD Resp: Other: Clear A/P; diminished at bases Cardio: Other: -S4 +S1/S2 -S3 2/6 SOPHIE at apex GI: Other: soft NT/ND with NABS BS x 4 quads Extrem: Other: no edema Objective Data Active Medications Acetaminophen (Acetaminophen 325 Mg Tablet) 650 mg PO Q6H PRN PRN Reason: Pain, Mild (Pain Scale 1-3) Carvedilol (Carvedilol 6.25 Mg Tablet) 6.25 mg PO BID [facility]; Protocol Last Admin: 09/12/21 12:06 Dose: 6.25 mg Documented by: VALERIE Docusate Sodium (Docusate Sodium 100 Mg Capsule) 100 mg PO DAILY PRN PRN Reason: Constipation Furosemide (Furosemide 40 Mg/4 Ml Vial) 40 mg IVPUSH BID@0900,1800 [facility]; Protocol Last Admin: 09/12/21 10:45 Dose: 40 mg Documented by: VALERIE Heparin Sodium (Porcine) (Heparin Sodium,Porcine 5,000 Unit/Ml Vial) 5,000 unit SUBCUT Q12H [facility] Last Admin: 09/12/21 10:43 Dose: 5,000 unit Documented by: VALERIE Ampicillin Sodium/Sulbactam (Sodium 3 gm/ Sodium Chloride) 100 mls @ 200 mls/hr IV Q8H [facility] Last Infusion: 09/12/21 10:55 Dose: 0 mls/hr Documented by: VALERIE Fluconazole 100 mg/ IV (Miscellaneous Supplies) 50 mls @ 50 mls/hr IV Q24H [facility] Lisinopril (Lisinopril 20 Mg Tablet) 20 mg PO DAILY [facility]; Protocol Non-Formulary Medication (Telotristat Etiprate [Xermelo]) 250 mg PO TID GUY Omeprazole (Omeprazole 20 Mg/10 Ml Susp.Recon) 10 mg PO BID@0630,1630 [facility] Last Admin: 09/12/21 05:56 Dose: 10 mg Documented by: ZAYRA Ondansetron HCl (Ondansetron Hcl 4 Mg/2 Ml Vial) 4 mg IVPUSH Q8H PRN PRN Reason: Nausea and Vomiting Last Admin: 09/12/21 10:51 Dose: 4 mg Documented by: VALERIE Sodium Chloride (0.9 % Sodium Chloride Flush 3 Ml Syringe) 3 ml IVFLUSH QSHIFT [facility] Last Admin: 09/12/21 10:32 Dose: Not Given Documented by: VALERIE Non-Admin Reason: IV Running Venlafaxine HCl (Venlafaxine Hcl Er 75 Mg Cap.Er.24h) 75 mg PO DAILY [facility] Last Admin: 09/12/21 12:06 Dose: 75 mg Documented by: VALERIE Labs CBC & Chem 7: 09/11/21 07:07 09/12/21 05:56 Labs: Laboratory Results - last 24 hr 09/12/21 09/12/21 05:56 05:56 Anion Gap 11 L Estim Creat Clear Calc 50.2 Estimated GFR 56 Random Glucose 106 Calcium 8.5 D Magnesium 1.8 B-Natriuretic Peptide 189 H Microbiology Microbiology Results: Microbiology 09/10/21 18:10 Blood Culture - Preliminary Blood - Venous No growth after 24 hours. 09/10/21 18:00 Blood Culture - Preliminary Blood - Venous No growth after 24 hours. Assessment and Plan (1) Dysphagia: Status: Acute (2) Acute CHF: Status: Acute (3) Depression: Status: Acute Plan 56yo F with metastatic carcinoid tumor on ?XRT + Xermelo presenting with dysphagia and admitted for PNA + CHF 1.Ddysphagia - Ba swallow unremarkable -consider EGD if no improvment on empirical fluconazole (2) 2.Pulmonary infiltrates(query mets) - Zosyn(3) 3.Acute systolic CHF - Continue BID IV lasix -Lisinopril increased to 20mg daily -if BP tolerated..add Imdur in am -follow renals/divalents 4.Acute hypoxic resp failure - wean O2 as tolerated 5. HTN - continue carvedilol/lisinopril - add Imdur in amif appropriatel 6.Carcinoid syndrome - continue Xermelo 7.Depression - continue venlafaxine # VTE ppx - UFH Quality Stroke Does the patient have a stroke diagnosis?: No VTE Prior VTE?: No VTE Risk Level:: Medical - moderate - high VTE Device Contraindication: Treatment Not Indicated VTE Drug Contraindication: N/A - Med Ordered
[2021-09-12 16:00] VITALS: BP 129/66; PULSE 64; RESP 16; TEMP 36; O2SAT 93
[2021-09-12] MEDS: Fluconazole in NaCl,Iso-Osm 100 MG in Container,Empty 0 ML 50 MG IV (16:02)
[2021-09-12] MEDS: Potassium Chloride Packet 20 MEQ PACKET 40 MEQ PO (17:11)
[2021-09-12 19:58] VITALS: BP 138/63; PULSE 66; RESP 17; TEMP 36.2; O2SAT 97
[2021-09-12] MEDS: 0.9 % Sodium Chloride Flush 3 ML SYRINGE IVFLUSH (23:24)
[2021-09-13] VITALS: BP 116/57; PULSE 72; RESP 18; TEMP 36.3; O2SAT 93
[2021-09-13 04:00] VITALS: BP 109/57; PULSE 69; RESP 18; TEMP 36.1; O2SAT 93
[2021-09-13] MEDS: Ampicillin Sodium/Sulbactam Na 3 GM in 0.9 % Sodium Chloride 100 ML IV (06:28)
[2021-09-13 07:45] VITALS: BP 128/61; PULSE 65; RESP 20; TEMP 36; O2SAT 97
[2021-09-13 09:04] LABS: MANUAL DIFF FLAG NO
[2021-09-13 09:19] LABS: Basophils Percent Auto 0.4 % (0-2); Eosinophils Absolute Auto 0.1 X10*3/uL (0.0-0.4); Eosinophils Percent Auto 3.6 % (0-4); Hematocrit 32.6 % (37.0-47.0); Hemoglobin 10.2 g/dl (12.0-16.0); Imm Gran Abs Auto 0.01 X10*3/uL (0.00-0.03); Imm Gran Pct Auto 0.4 % (0.0-0.4); Lymphocytes Absolute Auto 0.3 X10*3/uL (1.2-4.9); Lymphocytes Percent Auto 11.6 % (20-40); Mean Corpuscular HGB Conc 31.3 g/dl (31.0-35.0); Mean Corpuscular Hemoglobin 28.1 pg (27.0-33.0); Mean Corpuscular Volume 89.8 fL (80.0-98.0); Mean Platelet Volume 10.2 fL (9.4-12.3); Monocytes Absolute Auto 0.3 X10*3/uL (0.1-1.2); Monocytes Percent Auto 10.5 % (2-11); Neutrophils Percent Auto 73.5 % (45-73); Platelet Count 130 X10*3/uL (160-400); Red Blood Count 3.63 X10*6/uL (4.20-5.50); Red Cell Distribution Width 14.5 % (11.0-16.0); White Blood Count 2.8 X10*3/uL (4.8-10.8)
[2021-09-13 09:29] LABS: Alanine Aminotransferase 24 U/L (0-31); Albumin Level 4.1 g/dL (3.5-5.0); Alkaline Phosphatase 86 U/L (39-117); Anion Gap 14 (12-20); Aspartate Amino Transferase 20 U/L (5-31); Bilirubin Total 0.3 mg/dL (0.0-1.0); Blood Urea Nitrogen 16 mg/dL (9-16); Calcium 9.1 mg/dL (8.4-10.2); Carbon Dioxide 30 mmol/L (22-29); Chloride 101 mmol/L (96-108); Creatinine Clr Calc Pharmacy 42.2; Estimated Glomerular Filt Rate 46; Glucose Random 148 mg/dL (60-115); Magnesium 2.3 mg/dL (1.6-2.6); Potassium 3.6 mmol/L (3.3-5.1); Sodium 141 mmol/L (135-145)
[2021-09-13 09:34] LABS: B Type Natriuretic Peptide 96 pg/mL (<100)
[2021-09-13] MEDS: carvediloL 6.25 MG TABLET PO (09:53)
[2021-09-13] MEDS: Furosemide 40 MG/4 ML VIAL IVPUSH (09:53)
[2021-09-13] MEDS: 0.9 % Sodium Chloride Flush 3 ML SYRINGE IVFLUSH (09:53)
[2021-09-13] MEDS: Venlafaxine HCl ER 75 MG CAP.ER.24H PO (09:54)
[2021-09-13] MEDS: lisinopriL 20 MG TABLET PO (09:54)
[2021-09-13] MEDS: Heparin Sodium,Porcine 5,000 UNIT/ML VIAL 5000 UNIT SUBCUT (10:00)
--- NOTE | 2021-09-13 11:16 | PM.DS ---
DS: Providers Provider Date of Service: 09/13/21 Date of admission: 09/10/21 21:44 Date of discharge: 09/13/21 Primary care physician: Geni Pierson MD Consults: 09/10/21 21:43 Consult to Cardiology Routine Consulting Provider: Peterson Zapata Reason for consultation: Heart failure? Has provider been notified: No 09/10/21 22:49 Consult to Gastroenterology Routine Consulting Provider: Toby Villalpando Reason for consultation: dysohagia w hx of carcinoid tumor Has provider been notified: No DS: Diagnosis Discharge Diagnosis (1) Dysphagia: Status: Acute (2) Acute CHF: Status: Acute (3) Depression: Status: Acute DS: Summary Hospital Course Hospital Course: 56-year-old female past medical history of carcinoid tumor of ileum with metastasis to the liver, depression, hypertension, history of left bundle branch block, who presents to the hospital with complaints of difficulty swallowing as well as shortness of breath.? Patient reports that she has had difficulty with swallowing in the past but has worsened over the past 3 days.? She reports difficulty swallowing liquids and solids.? She feels that she has pain? on swallowing and food has difficulty going down her esophagus.? She has also been experiencing? significant difficulty in breathing.? Patient reports orthopnea, PND, dry cough, reports? intermittent chest pain that is sharp stabbing in nature, lasting few seconds, resolving spontaneously.? Patient denies any lower extremity edema.? The symptoms have also started about 3 days ago.? She denies any fever but has chills, denies any urinary symptoms, no numbness tingling or weakness.? Patient currently undergoing radiation therapy for her history of carcinoid tumor and reports that? radiation is for her whole upper body.? Last treatment was in July. ?On arrival to the ED patient hemodynamically stable with an elevated blood pressure otherwise no significant abnormality Labs are significant for WBC count of 3.3, hemoglobin of 10.4 which is chronically low for her, AST of 55, ALT of 42 which are slightly elevated than her baseline, BNP of 322 with no previous for comparison, soft tissue neck CT shows small to moderate right greater than left pleural effusion, consolidation of the lung bases, Hospital Course Seen by Cardiology..echo consistant with MR...meds adjusted. Seen by GI..empirical Diflucan . MBSS failed to demonstrate acute pathology. Symptoms resolved with Diflucan. CT chest did not demonstate infiltrates. Pt D/C to home with Cards f/up. Has appointment with [facility] Time Spent with Patient Time attestation: Total time spent providing and/or coordinating discharge services: Discharge coordination time: Greater than 30 minutes Quality: Stroke Does the patient have a stroke diagnosis?: No Physical Exam Vital Signs: Vital Signs: Last Vital Signs Temp 96.8 F 09/13/21 07:45 Pulse 65 09/13/21 07:45 Resp 20 09/13/21 07:45 BP 128/61 09/13/21 07:45 Pulse Ox 97 09/13/21 07:45 BMI result Body Mass Index 22.6 Const: Other: NAD Resp: Other: Clear A/P; diminished at bases Cardio: Other: -S4 +S1/S2 -S3 2/6 SOPHIE at apex GI: Other: soft NT/ND with NABS BS x 4 quads Extrem: Other: no edema DS: Data Data Completed and Pending Labs on day of discharge: Laboratory Results - last 24 hr 09/13/21 09/13/21 09/13/21 08:12 08:12 08:12 WBC 2.8 L RBC 3.63 L Hgb 10.2 L Hct 32.6 L MCV 89.8 MCH 28.1 MCHC 31.3 RDW 14.5 Plt Count 130 L MPV 10.2 Immature Gran % (Auto) 0.4 Neut % (Auto) 73.5 H Lymph % (Auto) 11.6 L [place] % (Auto) 10.5 Eos % (Auto) 3.6 Baso % (Auto) 0.4 Lymph # (Auto) 0.3 L [place] # (Auto) 0.3 Eos # (Auto) 0.1 Baso # (Auto) 0.0 Abs Immat Gran (auto) 0.01 Absolute Neuts (auto) 2.0 Absolute Nucleated RBC 0.000 Nucleated RBC % (auto) 0.0 Sodium 141 Potassium 3.6 Chloride 101 Carbon Dioxide 30 H Anion Gap 14 BUN 16 Creatinine 1.20 Estim Creat Clear Calc 42.2 Estimated GFR 46 Random Glucose 148 H Calcium 9.1 D Magnesium 2.3 Total Bilirubin 0.3 AST 20 D ALT 24 Alkaline Phosphatase 86 B-Natriuretic Peptide 96 Total Protein 7.0 Albumin 4.1 Preliminary micro results at discharge 09/10/21 18:00 Blood Culture - Preliminary Blood - Venous No growth after 48 hours. 09/10/21 18:10 Blood Culture - Preliminary Blood - Venous No growth after 48 hours. Discharge Plan Discharge Patient Disposition: Home, Self-Care Discharge Diagnosis: esophagitis Referrals: Geni Cooper MD [Primary Care Provider] - 1 Week Discharge Medications: New lisinopril 20 mg Tablet 20 mg PO DAILY Qty: 30 2RF Protocol: Hold for SBP< HOLD for SBP < : 90 furosemide [Lasix] 40 mg tablet 40 mg PO DAILY Qty: 30 0RF fluconazole 100 mg tablet 100 mg PO DAILY Qty: 7 0RF Continued carvedilol 6.25 mg tablet 6.25 mg PO BID 90 Days Qty: 180 3RF Rx Instructions: must administer with a meal/food venlafaxine 75 mg capsule,extended release 24hr 75 mg PO DAILY 90 Days Qty: 90 3RF omeprazole 10 mg capsule,delayed release(DR/EC) 10 mg PO BID Qty: 180 0RF ondansetron HCl 8 mg tablet 8 mg PO Q8H PRN (Reason: nausea and vomiting) Qty: 30 0RF Xermelo 250 mg tablet 250 mg PO TID 0RF Rx Instructions: must administer with a meal/food Discontinued lisinopril 5 mg tablet 5 mg PO DAILY Qty: 30 5RF No Action (DME) blood pressure monitor [Blood Pressure Kit] Kit See Rx Instructions .ROUTE .MEDSUPPLY Qty: 1 0RF Rx Instructions: As directed - take BP daily and keep a log Discharge Orders: Discharge Order (Routine); Ordered 09/13/21 Ordered By: Anupam Wall Diet: advance to usual diet Activity on Discharge: As tolerated Stand Alone Forms: Patient Portal Discharge page Care Plan Goals: Complete course of oral Diflucan as ordered. Follow up bethany Guzman as scheduled. Health Concerns: If symptoms re occur after completion of therapies..notify Dr Sutton/Shabnam Guzman Plan of Treatment: Follow up with Shabnam Guzman as scheduled. Follow up with Dr Zapata(office will call with appointment) Assessment: See D/C summary. Discharge Date/Time: 09/13/21 12:19
--- NOTE | 2021-09-13 11:25 | MHC.SL.SWA ---
Speech Pathologist Impression: Risk of Aspiration Oralpharyngeal Dysphagia Risk of Aspiration Due to: Medically Fragile History of Pneumonia Dysphasia Diet Status: No Change Liquid Consistency and Strategies for Safe Swallow: Liquid Intake Recommendation: Thin Liquid Intake Strategies: Small Sips Solid Food Consistency: Dietary Recommendations: Regular Additional Modifications to Solid Foods: Refer to MBSS 09/12/21 full report. Recommend REGULAR solids/ THIN liquids, pills WHOLE with LIQUID. Further ST intervention no longer warranted as swallow deemed to be functional. Please re-refer with any changes or if OUTREACH CONSULTANT can be of further assistance. Oral Medication Intake: Whole with Liquid Compensatory Strategies and Precautions to be Taken for Safe Swallow: Sitting Upright (90 deg) Small Bites and Sips Rate of Ingestion Change Supervision While Eating and Drinking for Safe Swallow: None Needed Swallowing Recommended Treatments: Compens. Strategy Educat. Recommendation for Speech: d/c It Engineer Clinican/Clinical Fellow: No Supervisory Statement: I have reviewed and agree with the student/clinical fellow's documentation: N/A Speech Language Pathologist: Reema Snyder M.A., CCC-OUTREACH CONSULTANT
--- NOTE | 2021-09-13 11:35 | MHC.CM.PN ---
PATIENT IS DC HOME - SELF CARE RN AWARE OF PLAN
== END 2021-09-13 12:19 | disposition home or self-care (01) | DRG 291 ==
LOC: HO.ED 21:43 → HO.EDOVER 22:01 → HO.S3 09-11 09:58
PROVIDERS: Family Medicine; Admitting Provider Internal Medicine; Emergency Provider Internal Medicine; PCP Internal Medicine; Visit Provider Hospitalist
DX: I11.0 Hypertensive heart disease with heart failure (principal); J69.0 Pneumonitis due to inhalation of food and vomit; J96.01 Acute respiratory failure with hypoxia; C7A.012 Malignant carcinoid tumor of the ileum; C7B.02 Secondary carcinoid tumors of liver; I34.0 Nonrheumatic mitral (valve) insufficiency; K20.80 Other esophagitis without bleeding; I50.811 Acute right heart failure; F32.A Depression, unspecified; Z20.822 Contact with and (suspected) exposure to COVID-19; Z79.899 Other long term (current) drug therapy
CPT/HCPCS: 36415; 70491; 71260; 74220; 74230; 80048; 80053; 80076; 83605; 83735; 83880; 84484; 85025; 87040; 87635; 92526; 92610; 92611; 93306; 99285; J0295; J1100; J1450; J1940; J2405; J2543; J3475; Q9967

== ENCOUNTER 2021-10-17 13:00 | Outpatient (REF) | payer OTHER, SELFPAY ==
[2021-10-17 13:56] LABS: MANUAL DIFF FLAG NO
[2021-10-17 14:13] LABS: Basophils Percent Auto 0.5 % (0-2); Eosinophils Absolute Auto 0.1 X10*3/uL (0.0-0.4); Eosinophils Percent Auto 2.6 % (0-4); Hematocrit 32.2 % (37.0-47.0); Hemoglobin 9.9 g/dl (12.0-16.0); Imm Gran Abs Auto 0.02 X10*3/uL (0.00-0.03); Imm Gran Pct Auto 0.5 % (0.0-0.4); Lymphocytes Absolute Auto 0.2 X10*3/uL (1.2-4.9); Lymphocytes Percent Auto 5.4 % (20-40); Mean Corpuscular HGB Conc 30.7 g/dl (31.0-35.0); Mean Corpuscular Hemoglobin 28.8 pg (27.0-33.0); Mean Corpuscular Volume 93.6 fL (80.0-98.0); Mean Platelet Volume 9.8 fL (9.4-12.3); Monocytes Absolute Auto 0.4 X10*3/uL (0.1-1.2); Monocytes Percent Auto 10.1 % (2-11); Neutrophils Absolute Auto 3.1 x10*3/uL (2.0-8.3); Neutrophils Percent Auto 80.9 % (45-73); Platelet Count 123 X10*3/uL (160-400); Red Blood Count 3.44 X10*6/uL (4.20-5.50); Red Cell Distribution Width 14.8 % (11.0-16.0); White Blood Count 3.9 X10*3/uL (4.8-10.8)
[2021-10-17 14:42] LABS: Alanine Aminotransferase 20 U/L (0-31); Albumin Level 4.2 g/dL (3.5-5.0); Alkaline Phosphatase 99 U/L (39-117); Anion Gap 14 (12-20); Aspartate Amino Transferase 22 U/L (5-31); Bilirubin Total 0.4 mg/dL (0.0-1.0); Blood Urea Nitrogen 10 mg/dL (9-16); Calcium 9.3 mg/dL (8.4-10.2); Carbon Dioxide 27 mmol/L (22-29); Chloride 108 mmol/L (96-108); Estimated Glomerular Filt Rate 45; Glucose Random 107 mg/dL (60-115); Potassium 3.7 mmol/L (3.3-5.1); Sodium 145 mmol/L (135-145)
[2021-10-28 13:51] LABS: Chromogranin A 5267 ng/mL (ADULTS: <311)
== END 2021-10-17 13:01 | disposition home or self-care (01) ==
LOC: HO.LAB 13:00
PROVIDERS: PCP Internal Medicine; Visit Provider Internal Medicine Medical Oncology
DX: E34.0 Carcinoid syndrome (principal)
CPT/HCPCS: 36415; 80053; 85025; 86316

== ENCOUNTER 2021-10-19 08:11 | Inpatient (IN) | payer OTHER, SELFPAY ==
[2021-10-19] VITALS (7 sets, daily range): BP systolic 134–161; BP diastolic 61–90; PULSE 71–92; RESP 20–24; TEMP 35.9–37; O2SAT 94–99; BMI 23.0
--- NOTE | ~2021-10-19 | XR_ITS ---
EXAMINATION: XR CHEST CLINICAL INFORMATION: Shortness of breath COMPARISON: Previous chest imaging studies with the last chest CT of from 09/10/2021 and chest x-ray of 01/29/2021. TECHNIQUE: Frontal view of the chest was obtained. FINDINGS: Cardiomediastinal silhouette is stable with mild cardiomegaly. Diffuse interstitial prominence is noted with more hazy consolidative opacities in the right upper and lower lung zones as well as left base. Small bilateral pleural effusions. No evidence of pneumothorax. No acute osseous abnormality. XR/XR chest 1V IMPRESSION: Cardiomegaly. The findings favor interstitial/pulmonary edema with small bilateral pleural effusions. Infectious/inflammatory process are in differential.
--- NOTE | ~2021-10-19 | CT_ITS ---
EXAMINATION: CT ANGIOGRAM OF THE CHEST WITHOUT AND WITH CONTRAST (CT PULMONARY ANGIOGRAM FOR PE) CLINICAL INFORMATION: Shortness of breath. COMPARISON: Multiple previous chest imaging studies with the chest x-ray of 10/19/2021, chest CT of 09/10/2021. TECHNIQUE: Prior to contrast administration, noncontrast localization images were obtained. Subsequently, multidetector volumetric imaging was performed from the thoracic inlet to below the diaphragms following the administration of 65 mL Omnipaque 350 intravenous contrast. No contrast reaction reported Sagittal, coronal, and MIP oblique sagittal reformatted images were obtained on the CT workstation, uploaded to PACS, and reviewed. This CT examination was performed using dose optimization techniques as appropriate, variously including the following: *Automated exposure control *Adjustment of mA and/or kV according to patient size (this includes techniques or standardized protocols for targeted exams where dose is matched to indication/reason for exam; i.e. extremities or head) *Use of iterative reconstruction technique Total exam dose-length product 277 mGy-cm FINDINGS: QUALITY OF STUDY/CONTRAST BOLUS: Satisfactory. PULMONARY ARTERIES: No central or segmental pulmonary emboli. THORACIC AORTA: Although evaluation is limited, there is no evidence of dissection of the thoracic aorta. An ascending aorta measures 3.9 cm in maximum AP diameter at the level of the right main pulmonary artery. LUNG: Diffuse moderate interlobular septal thickening is noted with more focal ground-glass and airspace opacities in the right central upper lobe and ground-glass opacities in the left lung. Respiratory motion artifact somewhat limits evaluation of the lung parenchyma. Ground-glass opacities are also noted in the right middle and lower lobes. PLEURA: Right moderate pleural effusion and left [id number] pleural effusion with associated bilateral lower lobe dependent consolidations, likely atelectasis. MEDIASTINUM: Generalized cardiomegaly. No evidence of septal bowing. No evidence of mediastinal or hilar adenopathy. Trachea and central bronchi are well patent. No pericardial effusion. CHEST WALL/AXILLA: No axillary or internal mammary lymphadenopathy. OSSEOUS STRUCTURES: No acute or suspicious osseous abnormality. UPPER ABDOMEN: Previously noted hyperdense/hyperenhancing lesion in the right hepatic lobe is not seen on the current study, the portion of the liver containing this lesion is probably only partially imaged on current examination and nonvisualization of the lesion is probably related to phase of contrast imaging during acquisition. Reflux of contrast is noted in the hepatic veins which suggests elevated right heart pressures. CT/CT angio chest PE protocol IMPRESSION: 1. No evidence of pulmonary embolism. 2. Interlobular septal thickening, bilateral ground-glass pulmonary opacities and more consolidative right upper lobe opacities, bilateral pleural effusions, and cardiomegaly. Constellation of findings are suggestive of pulmonary edema. Infectious/inflammatory process is in the differential, however, is thought to be less likely. Recommend clinical correlation. 3. Contrast reflux is noted in the hepatic veins suggesting elevated right heart pressures. VTE: Negative
--- NOTE | 2021-10-19 09:06 | ECG_ITS ---
Test Reason : CHEST PAIN / SHORTNESS OF BREATH Blood Pressure : / mmHG Vent. Rate : 088 BPM Atrial Rate : 088 BPM P-R Int : 152 ms QRS Dur : 142 ms QT Int : 392 ms P-R-T Axes : 027 018 095 degrees QTc Int : 474 ms Normal sinus rhythm Left bundle branch block Abnormal ECG When compared with ECG of 29-JAN-2021 13:12, Left bundle branch block is now Present Referred By: Josselin Jackson Electronically Signed By:NOEMI GORMAN
--- NOTE | 2021-10-19 09:12 | ED.SOB ---
HPI - SOB/Dyspnea General Chief Complaint: Dyspnea Stated Complaint: sob Time Seen by Provider: 10/19/21 08:22 History of Present Illness HPI Narrative: Patient is a 56-year-old female presents today with having shortness of breath. No fever no chills. + coughing or congestion positive generalized malaise. No leg swelling positive history of carcinoid tumor with meds. Patient's was on chemo up to September. No diaphoresis. Patient claims she had a history of left bundle branch block. History of mitral regurg Related Data Home Medications Medication Instructions Recorded Confirmed telotristat ethyl 250 mg tablet 250 mg PO TID tab 08/16/20 09/10/21 (Xermelo) hydrocortisone 2.5 % topical cream 1 appl TOPICAL BID PRN 10/19/21 10/19/21 Previous Rx's Medication Instructions Recorded blood pressure monitor (Blood #1 ea 02/05/21 Pressure Kit) carvedilol 6.25 mg tablet 6.25 mg PO BID 90 Days #180 tab 04/09/21 venlafaxine 75 mg capsule,extended 75 mg PO DAILY 90 Days #90 cap 07/04/21 release 24 hr omeprazole 10 mg capsule,delayed 10 mg PO BID #180 cap 08/05/21 release lisinopril 20 mg tablet 20 mg PO DAILY #30 tab 09/13/21 ondansetron HCl 8 mg tablet 8 mg PO Q8H PRN #30 tab 09/13/21 furosemide 40 mg tablet (Lasix) 40 mg PO DAILY #30 tab 10/16/21 Allergies Allergy/AdvReac Type Severity Reaction Status Date / Time oxycodone Allergy Intermediate hives Verified 07/11/21 08:58 Review of Systems Review of Systems: Positive shortness of breath Yes all other systems are reviewed and are negative [facility] Past Medical History Attestation statement: The following information was validated with the patient. Medical History Carcinoid tumor Depression Eczema Encounter for Medicare annual wellness exam History of headache HTN (hypertension) Hx of left bundle branch block Lab test negative for COVID-19 virus Liver metastasis Malignant carcinoid tumor of ileum Surgical History H/O colonoscopy History of History of endometrial ablation History of esophagogastroduodenoscopy (EGD) History of right hemicolectomy (~01/2018) Hx of dilation and curettage Hx of eye surgery Hx of tubal ligation Family History Family History Brother History of throat cancer Maternal Aunt History of colon cancer Mother Hx of completed stroke Father No problems noted. Family/Other Substance use disorder Social History Social History Household Members: Family Housing: House Are you a primary nurse healthcare manager to a significant other at home: No Do you presently have visiting nurse or other home services: No Alcohol intake: unknown Patient Tobacco Use Status: Never used Tobacco e-Cigarette/Vaping Use: Never Used Second Hand Smoke Exposure: No Advance Directives: Yes Advance Directives on File: Yes Advance Directives Date on File: 09/11/21 Patient : No service: No Current occupational status: disabled Physical Exam Vital Signs: Vital Signs: Last Vital Signs Temp 98.3 F 10/19/21 10:20 Pulse 86 10/19/21 10:33 Resp 20 10/19/21 10:20 BP 155/87 H 10/19/21 10:33 Pulse Ox 94 10/19/21 10:20 BMI result Body Mass Index 23.0 Appearance: Alert. Oriented X3. No acute distress. Eyes: Pupils equal, round and reactive to light. ENT: Pharynx normal. Neck: Normal inspection. Neck supple. No lymph nodes noted. No crepitus CVS: Normal heart rate and rhythm. Pulses normal. Normal S1 and S2 Respiratory: No respiratory distress. Breath sounds normal. No Wheezing. No rales Abdomen: Soft and nontender. No rigidity. No distention. good BS x4 Skin: Skin warm and dry. Normal skin color. Normal skin turgor. Extremities: No lower extremity edema. Neurovascular intact to all extremities. No Lacerations. No Rash Neuro: Oriented X 3. No motor deficit. No sensory deficit. Moving all extermities. No slurred speech MDM - SOB/Dyspnea MDM Narrative Medical decision making narrative: Patient's EKG showed a left bundle-branch pattern heart rate was approximately 90 per patient this is not new. Patient has shortness of breath has diminished breath sounds bilaterally has crackles at the bases patient's chest x-ray consistent with congestive heart failure patient's BNP is approximately 1000 consistent with congestive heart failure. Will admit for further evaluation Lasix and nitro given. Patient's last echo was done about a year ago at that time patient had normal ejection fraction. Also had a slight elevated D-dimer will also get a CT scan of the chest to make sure patient does not have a PE. In the setting of patient having history of carcinoid tumor with metastatic disease to liver. Patient is currently guarded condition awaiting admissions. Differential Diagnosis Differential diagnosis: Likely congestive heart failure Medical Records Attestation: I reviewed the patient's medical records. Lab Data Attestation: I reviewed the patient's lab results. Result diagrams: 10/19/21 10:01 Labs: Lab Results 10/19/21 10/19/21 10/19/21 Range/Units 10:01 10:01 10:01 D-Dimer High Sensitivty 316 NG/ML Sodium 140 (135-145) mmol/L Potassium 4.0 (3.3-5.1) mmol/L Chloride 106 (96-108) mmol/L Carbon Dioxide 26 (22-29) mmol/L Anion Gap 12 (12-20) BUN 12 (9-16) mg/dL Creatinine 0.99 (0.5-1.4) mg/dL Estim Creat Clear Calc 51.2 Estimated GFR 58 Random Glucose 102 (60-115) mg/dL Calcium 8.8 (8.4-10.2) mg/dL Troponin I High Sens 18.4 H D (<3.5-17.0) ng/L B-Natriuretic Peptide 710 H (<100) pg/mL COVID-19 (JESSICA) (Negative) COVID-19 Clin Com 10/19/21 Range/Units 10:01 D-Dimer High Sensitivty NG/ML Sodium (135-145) mmol/L Potassium (3.3-5.1) mmol/L Chloride (96-108) mmol/L Carbon Dioxide (22-29) mmol/L Anion Gap (12-20) BUN (9-16) mg/dL Creatinine (0.5-1.4) mg/dL Estim Creat Clear Calc Estimated GFR Random Glucose (60-115) mg/dL Calcium (8.4-10.2) mg/dL Troponin I High Sens (<3.5-17.0) ng/L B-Natriuretic Peptide (<100) pg/mL COVID-19 (JESSICA) Negative (Negative) COVID-19 Clin Com See Note Discharge Plan Discharge Clinical Impression: Congestive heart failure Patient Disposition: Admitted As Inpatient
[2021-10-19 10:23] LABS: COVID-19 Test Negative (Negative); IDNOW Serial# 16C4AD1C
[2021-10-19 10:25] LABS: Anion Gap 12 (12-20); Blood Urea Nitrogen 12 mg/dL (9-16); Calcium 8.8 mg/dL (8.4-10.2); Carbon Dioxide 26 mmol/L (22-29); Chloride 106 mmol/L (96-108); Creatinine Clr Calc Pharmacy 51.2; Estimated Glomerular Filt Rate 58; Glucose Random 102 mg/dL (60-115); Sodium 140 mmol/L (135-145)
[2021-10-19 10:26] LABS: D Dimer High Sensitivity 316 NG/ML
[2021-10-19 10:30] LABS: B Type Natriuretic Peptide 710 pg/mL (<100); Troponin-I High Sensitivity 18.4 ng/L (<3.5-17.0)
[2021-10-19] MEDS: Nitroglycerin 2 % Oint 1 GM Packet 0.5 INCH TRANSDERMA (10:33)
[2021-10-19] MEDS: Furosemide 40 MG/4 ML VIAL IVPUSH ×2 (10:34→18:14)
--- NOTE | 2021-10-19 11:17 | PHA.MEDREC ---
Pharmacy Consult ? Medication Reconciliation Pharmacy has completed the medication reconciliation. Patient no longer take Furosemide. Shyanne Valera, PharmD
[2021-10-19 11:23] LABS: Appearance Urine CLEAR; Color Urine YELLOW; Glucose Urine UA NEG (NEG); Leukocyte Esterase Urine NEG (NEG); Nitrite Urine NEG (NEG); PH 5.5 (5.0-8.0); Urine Blood NEG (NEG); Urine Ketones NEG (NEG); Urine Protein NEG (NEG-TRACE)
[2021-10-19] MEDS: iohexoL 350 MG/ML 100 ML INFUS..BTL IV (11:57)
--- NOTE | 2021-10-19 14:15 | PM.IMHP ---
History of Present Illness Date of Service: 10/19/21 Chief Complaint: Shortness of breath 56-year-old female with past medical history of metastatic carcinoid heart disease presented with shortness of breath. Patient states she has had shortness of breath for several months that has been progressive. She was most recently discharged from [facility] September 2021 after hospitalization for CHF. Patient was feeling well after that, then over the past 1-2 weeks she has been having progressive shortness of breath and orthopnea with about 10 lb weight gain associated with abdominal bloating, denies edema. Review of Systems Review of Systems: Constitutional: Denies fever, denies Chills Eyes: denies blurry vision ENT: denies sore throat CVS: denies chest pain Respiratory: dyspnea GI: no abdominal pain : denies dysuria MSK: denies neck pain Skin: denies rash Neuro: denies specific motor weakness Psych: denies suicidal ideation Endocrine: denies heat/cold intolerance Hematologic: denies easy bleeding Allergy: denies hives [facility] Medical History Carcinoid tumor Depression Eczema Encounter for Medicare annual wellness exam History of headache HTN (hypertension) Hx of left bundle branch block Lab test negative for COVID-19 virus Liver metastasis Malignant carcinoid tumor of ileum Family History Brother History of throat cancer Maternal Aunt History of colon cancer Mother Hx of completed stroke Father No problems noted. Family/Other Substance use disorder Surgical History H/O colonoscopy History of History of endometrial ablation History of esophagogastroduodenoscopy (EGD) History of right hemicolectomy (~01/2018) Hx of dilation and curettage Hx of eye surgery Hx of tubal ligation Social History Household Members: Family Housing: House Are you a primary lawn care professional to a significant other at home: No Do you presently have visiting nurse or other home services: No Alcohol intake: unknown Patient Tobacco Use Status: Never used Tobacco e-Cigarette/Vaping Use: Never Used Second Hand Smoke Exposure: No Advance Directives: Yes Advance Directives on File: Yes Advance Directives Date on File: 09/11/21 Patient : No service: No Current occupational status: disabled Meds Allergies Allergy/AdvReac Type Severity Reaction Status Date / Time oxycodone Allergy Intermediate hives Verified 07/11/21 08:58 Active Medications: Current Medications Acetaminophen (Acetaminophen 325 Mg Tablet) 650 mg PO Q6H PRN PRN Reason: Pain, Mild (Pain Scale 1-3) Ascorbic Acid (Ascorbic Acid 500 Mg Tablet) 500 mg PO DAILY [facility] Carvedilol (Carvedilol 6.25 Mg Tablet) 6.25 mg PO BID [facility]; Protocol Furosemide (Furosemide 40 Mg/4 Ml Vial) 40 mg IVPUSH BID@0900,1800 [facility]; Protocol Lisinopril (Lisinopril 20 Mg Tablet) 20 mg PO DAILY [facility]; Protocol Non-Formulary Medication (Telotristat Ethyl [Xermelo]) 250 mg PO TID [facility] Omeprazole (Omeprazole 20 Mg/10 Ml Susp.Recon) 10 mg PO BID@0630,1630 [facility] Pharmacy Consult (Consult Rx Perform Med Rec) 1 each MISCELLANE ONCE PRN PRN Reason: Consult order Sodium Chloride (0.9 % Sodium Chloride Flush 3 Ml Syringe) 3 ml IVFLUSH QSHIFT [facility] Venlafaxine HCl (Venlafaxine Hcl Er 75 Mg Cap.Er.24h) 75 mg PO DAILY [facility] Home Medications Medication Instructions Recorded Confirmed Last Taken Type telotristat ethyl 250 mg tablet 250 mg PO TID tab 08/16/20 10/19/21 10/18/21 History (Xermelo) ascorbic acid (vitamin C) 500 mg 500 mg PO DAILY 10/19/21 10/19/21 10/18/21 History tablet (Vitamin C) hydrocortisone 2.5 % topical cream 1 appl TOPICAL BID PRN 10/19/21 10/19/21 10/18/21 History Physical Exam Vital Signs and Narrative: Vital Signs: Last Vital Signs Temp 98.6 F 10/19/21 11:22 Pulse 79 10/19/21 11:22 Resp 20 10/19/21 11:22 BP 161/82 H 10/19/21 11:22 Pulse Ox 96 10/19/21 11:22 BMI result Body Mass Index 23.0 General: no acute distress HEENT: atraumatic Neck: normal to visual inspection CVS: S1, S2, RRR, no edema, + murmur Resp: Crackles bilateral Chest: non tender GI: soft, non tender, non distended : no CVA tenderness Skin: no rashes Extremities: no edema Neuro: Oriented X3, grossly intact Psych: cooperative Results Labs CBC and Chem 7: 10/19/21 10:01 Labs: Laboratory Results - last 24 hr 10/19/21 10/19/21 10/19/21 10:01 10:01 10:01 D-Dimer High Sensitivty 316 Anion Gap 12 Estim Creat Clear Calc 51.2 Estimated GFR 58 Random Glucose 102 Calcium 8.8 B-Natriuretic Peptide 710 H Urine Color Urine Appearance Urine pH Ur Specific [place] Urine Protein Urine Glucose (UA) Urine Ketones Urine Blood Urine Nitrite Ur Leukocyte Esterase COVID-19 (JESSICA) COVID-19 Clin Com 10/19/21 10/19/21 10:01 11:13 D-Dimer High Sensitivty Anion Gap Estim Creat Clear Calc Estimated GFR Random Glucose Calcium B-Natriuretic Peptide Urine Color YELLOW Urine Appearance CLEAR Urine pH 5.5 Ur Specific [place] 1.010 Urine Protein NEG Urine Glucose (UA) NEG Urine Ketones NEG Urine Blood NEG Urine Nitrite NEG Ur Leukocyte Esterase NEG COVID-19 (JESSICA) Negative COVID-19 Clin Com See Note Imaging Radiologist's Impressions: Impressions Chest X-Ray 10/19/21 09:37 IMPRESSION: Cardiomegaly. The findings favor interstitial/pulmonary edema with small bilateral pleural effusions. Infectious/inflammatory process are in differential. Assessment and Plan (1) Congestive heart failure: Status: Acute Plan 56F presented with sob acute on chronic diastolic chf with AI and MR iv lasix monitor lytes ? carcinoid heart disease, though usually right sided cardio eval metastatic caricnoid conitnue somatastatin analogue mood disorder effexor htn lisinopril coreg dvt prophylaxis - lovenox full code Patient with symptomatic heart failure requiring IV diuresis with risk factors including metastatic carcinoid disease, therefore, expected to require at least 2 midnights inpatient. Quality Stroke Does the patient have a stroke diagnosis?: No VTE Prior VTE?: No VTE Risk Level:: Medical - moderate - high VTE Device Contraindication: Treatment Not Indicated VTE Drug Contraindication: N/A - Med Ordered
[2021-10-19] MEDS: 0.9 % Sodium Chloride Flush 3 ML SYRINGE IVFLUSH ×2 (18:19→20:42)
[2021-10-19] MEDS: Acetaminophen 325 MG TABLET 650 MG PO (20:38)
[2021-10-19] MEDS: carvediloL 6.25 MG TABLET PO (20:38)
[2021-10-20] VITALS (7 sets, daily range): BP systolic 112–137; BP diastolic 56–68; PULSE 70–78; RESP 17–20; TEMP 36.1–36.7; O2SAT 90–99
[2021-10-20 07:20] LABS: Hematocrit 27.9 % (37.0-47.0); Hemoglobin 8.8 g/dl (12.0-16.0); Mean Corpuscular HGB Conc 31.5 g/dl (31.0-35.0); Mean Corpuscular Volume 92.1 fL (80.0-98.0); Platelet Count 104 X10*3/uL (160-400); Red Blood Count 3.03 X10*6/uL (4.20-5.50); Red Cell Distribution Width 14.9 % (11.0-16.0); White Blood Count 2.6 X10*3/uL (4.8-10.8)
[2021-10-20 07:36] LABS: Anion Gap 12 (12-20); Blood Urea Nitrogen 11 mg/dL (9-16); Calcium 8.9 mg/dL (8.4-10.2); Carbon Dioxide 34 mmol/L (22-29); Chloride 99 mmol/L (96-108); Creatinine Clr Calc Pharmacy 44.9; Estimated Glomerular Filt Rate 49; Glucose Fasting 107 mg/dL (60-99); Magnesium 1.9 mg/dL (1.6-2.6); Potassium 3.9 mmol/L (3.3-5.1); Sodium 141 mmol/L (135-145)
[2021-10-20] MEDS: Venlafaxine HCl ER 75 MG CAP.ER.24H PO (07:49)
[2021-10-20] MEDS: lisinopriL 20 MG TABLET PO (07:49)
[2021-10-20] MEDS: Ascorbic Acid 500 MG TABLET PO (07:49)
[2021-10-20] MEDS: Furosemide 40 MG/4 ML VIAL IVPUSH ×2 (07:50→17:13)
[2021-10-20] MEDS: carvediloL 6.25 MG TABLET PO ×2 (07:50→20:23)
[2021-10-20] MEDS: 0.9 % Sodium Chloride Flush 3 ML SYRINGE IVFLUSH ×3 (07:56→20:24)
--- NOTE | 2021-10-20 09:44 | MHC.CM.PN ---
met with pt and her pt is independent plan will be home no servceis
--- NOTE | 2021-10-20 11:20 | P.PNIM_ITS ---
Subjective Subjective Date of Service: 10/20/21 Interval History: cc: sob interval history:improved today Cardiovascular Cardiovascular: Reports no additional cardiovascular complaints Respiratory Respiratory: Reports no additional respiratory complaints Physical Exam Vital Signs: Vital Signs: Last Vital Signs Temp 97.5 F 10/20/21 07:30 Pulse 70 10/20/21 07:30 Resp 18 10/20/21 07:30 BP 122/60 10/20/21 07:30 Pulse Ox 96 10/20/21 07:30 BMI result Body Mass Index 23.0 General: AO X 3, no acute distress Resp: CTA bilateral, no accessory muscles used CVS: S1,S2,RRR, mnurmur, no edema GI: soft, non tender, mildly distended Neuro: motor grossly intact, alert Psych: appropriate affect, appropriate insight Objective Data Active Medications Acetaminophen (Acetaminophen 325 Mg Tablet) 650 mg PO Q6H PRN PRN Reason: Pain, Mild (Pain Scale 1-3) Last Admin: 10/19/21 20:38 Dose: 650 mg Documented by: CARA Ascorbic Acid (Ascorbic Acid 500 Mg Tablet) 500 mg PO DAILY [facility] Last Admin: 10/20/21 07:49 Dose: 500 mg Documented by: HAMMAD Carvedilol (Carvedilol 6.25 Mg Tablet) 6.25 mg PO BID [facility]; Protocol Last Admin: 10/20/21 07:50 Dose: 6.25 mg Documented by: HAMMAD Enoxaparin Sodium (Enoxaparin Sodium 40 Mg/0.4 Ml Syringe) 40 mg SUBCUT Q24H [facility] Last Admin: 10/20/21 07:51 Dose: Not Given Documented by: HAMMAD Non-Admin Reason: Patient Refused Furosemide (Furosemide 40 Mg/4 Ml Vial) 40 mg IVPUSH BID@0900,1800 [facility]; Protocol Last Admin: 10/20/21 07:50 Dose: 40 mg Documented by: HAMMAD Lisinopril (Lisinopril 20 Mg Tablet) 20 mg PO DAILY [facility]; Protocol Last Admin: 10/20/21 07:49 Dose: 20 mg Documented by: HAMMAD Non-Formulary Medication (Telotristat Ethyl [Xermelo]) 250 mg PO TID [facility] Omeprazole (Omeprazole 20 Mg/10 Ml Susp.Recon) 10 mg PO BID@0630,1630 [facility] Last Admin: 10/20/21 05:54 Dose: 10 mg Documented by: CARA Pharmacy Consult (Consult Rx Perform Med Rec) 1 each MISCELLANE ONCE PRN PRN Reason: Consult order Sodium Chloride (0.9 % Sodium Chloride Flush 3 Ml Syringe) 3 ml IVFLUSH QSHIFT [facility] Last Admin: 10/20/21 07:56 Dose: 3 ml Documented by: HAMMAD Venlafaxine HCl (Venlafaxine Hcl Er 75 Mg Cap.Er.24h) 75 mg PO DAILY [facility] Last Admin: 10/20/21 07:49 Dose: 75 mg Documented by: HAMMAD Labs CBC & Chem 7: 10/20/21 06:37 10/20/21 06:37 Labs: Laboratory Results - last 24 hr 10/19/21 10/20/21 10/20/21 11:13 06:37 06:37 MCV 92.1 MCH 29.0 MCHC 31.5 RDW 14.9 Plt Count 104 L MPV 10.0 Absolute Nucleated RBC 0.000 Nucleated RBC % (auto) 0.0 Anion Gap 12 Estim Creat Clear Calc 44.9 Estimated GFR 49 Fasting Glucose 107 H Calcium 8.9 Magnesium 1.9 Urine Color YELLOW Urine Appearance CLEAR Urine pH 5.5 Ur Specific [place] 1.010 Urine Protein NEG Urine Glucose (UA) NEG Urine Ketones NEG Urine Blood NEG Urine Nitrite NEG Ur Leukocyte Esterase NEG Assessment and Plan (1) Dysphagia: Status: Resolved (2) Acute CHF: Status: Resolved (3) Depression: Status: Acute Plan 56F presented with sob acute on chronic diastolic chf with AI and MR improved, but still more fluid to come off, continue iv lasix monitor lytes ? carcinoid heart disease, though usually right sided, check echo with bubble study to see if septal defect cardio following metastatic caricnoid continue somatastatin analogue mood disorder effexor htn lisinopril coreg dvt prophylaxis - lovenox full code reason for continued hospitalization: Patient with symptomatic heart failure requiring IV diuresis with risk factors including metastatic carcinoid disease, Quality Stroke Does the patient have a stroke diagnosis?: No VTE Prior VTE?: No VTE Risk Level:: Medical - moderate - high VTE Device Contraindication: Treatment Not Indicated VTE Drug Contraindication: N/A - Med Ordered
--- NOTE | 2021-10-20 11:22 | P.CONCA_ITS ---
History of Present Illness History of Present Illness Date of Service: 10/20/21 Chief complaint: CHF Narrative: This is a cardiology consultation regarding shortness of breath and congestive heart failure. Patient generally sees Dr. Zapata. She has a history of metastatic carcinoid disease. It seems that she was recently in hospital for congestive heart failure and was sent home on diuretics. However, few days ago she fell she was really dehydrated and hence has not taken diuretics in the last 3 days. Now she is back again with shortness of breath which is much worse than her usual baseline. She is also not able to sleep flat nights and suggestive of orthopnea. No significant leg swelling. She was hospitalized with a diagnosis of congestive heart failure and we have been asked to assist in further care. Review of Systems Review of Systems: Yes all other systems are reviewed and are negative Constitutional: Constitutional: Reports as per HPI Eyes: Eyes: Reports as per HPI ENT: Reports as per HPI Cardiovascular: Cardiovascular: Reports as per HPI, Denies acrocyanosis, Denies cool extremities, Denies chest pain, Denies leg edema, Denies lightheadedness, Denies palpitations, Reports dyspnea, Reports dyspnea on exertion and Reports orthopnea Respiratory: Respiratory: Reports as per HPI, Reports no additional respiratory complaints, Reports dyspnea and Reports dyspnea on exertion Gastrointestinal: Gastrointestinal: Reports as per HPI and Reports no additional gastrointestinal complaints Genitourinary: Genitourinary: Reports as per HPI Musculoskeletal: Musculoskeletal: Reports no additional musculoskeletal complaints and Reports as per HPI Integumentary/Breasts: Skin/Breast: Reports system reviewed and no additional complaints, except as docu Neurologic: Reports system reviewed and no additional complaints, except as documented and Reports as per HPI Psychiatric: Psychiatric: Reports no additional psychiatric complaints and Rep orts as per HPI Endocrine: Endocrine: Reports no additional endocrine complaints, Reports as per HPI and Denies palpitations Hematologic/Lymphatic: Hematologic/Lymphatic: Reports no additional hematologic/lymphatic complaints and Reports as per HPI Allergic/Immunologic: Allergic/Immunologic: Reports no additional allergic/immunologic complaints and Reports as per HPI [facility] Past Medical History Medical History (Updated 10/20/21 @ 11:25 by Artur Carson MD) Carcinoid tumor Depression Eczema Encounter for Medicare annual wellness exam History of headache HTN (hypertension) Hx of left bundle branch block Lab test negative for COVID-19 virus Liver metastasis Malignant carcinoid tumor of ileum Non-rheumatic aortic regurgitation Family History Family History Brother History of throat cancer Maternal Aunt History of colon cancer Mother Hx of completed stroke Father No problems noted. Family/Other Substance use disorder Surgical History Surgical History H/O colonoscopy History of History of endometrial ablation History of esophagogastroduodenoscopy (EGD) History of right hemicolectomy (~01/2018) Hx of dilation and curettage Hx of eye surgery Hx of tubal ligation Social History Social History Household Members: Spouse and Children Housing: House Are you a primary gericare aide to a significant other at home: No Do you presently have visiting nurse or other home services: No Alcohol intake: unknown Patient Tobacco Use Status: Never used Tobacco e-Cigarette/Vaping Use: Never Used Second Hand Smoke Exposure: No Use of substances other than those prescribed or required for medical reasons: No Currently Displaying Signs/Symptoms of Drug Intoxication Withdrawal: No Have you been hit, kicked, punched, or otherwise hurt by someone within the past year? If so, by whom?: No Do you feel safe in your current relationship?: Yes Is there a partner from a previous relationship who is making you feel unsafe now?: No Advance Directives: Yes Advance Directives on File: Yes Advance Directives Date on File: 09/11/21 Do you have thoughts of harming others: None Do you have a plan to hurt others: No Plan Recently lost weight without trying: No Eating poorly because of decreased appetite: No Nutrition Risks: No Nutritional Risk Patient : No : No Poor oral hygiene: No service: No Current occupational status: disabled Meds Allergies Allergy/AdvReac Type Severity Reaction Status Date / Time oxycodone Allergy Intermediate hives Verified 07/11/21 08:58 Active Medications: Current Medications Acetaminophen (Acetaminophen 325 Mg Tablet) 650 mg PO Q6H PRN PRN Reason: Pain, Mild (Pain Scale 1-3) Last Admin: 10/19/21 20:38 Dose: 650 mg Documented by: Ascorbic Acid (Ascorbic Acid 500 Mg Tablet) 500 mg PO DAILY [facility] Last Admin: 10/20/21 07:49 Dose: 500 mg Documented by: Carvedilol (Carvedilol 6.25 Mg Tablet) 6.25 mg PO BID [facility]; Protocol Last Admin: 10/20/21 07:50 Dose: 6.25 mg Documented by: Enoxaparin Sodium (Enoxaparin Sodium 40 Mg/0.4 Ml Syringe) 40 mg SUBCUT Q24H [facility] Last Admin: 10/20/21 07:51 Dose: Not Given Documented by: Furosemide (Furosemide 40 Mg/4 Ml Vial) 40 mg IVPUSH BID@0900,1800 [facility]; Protocol Last Admin: 10/20/21 07:50 Dose: 40 mg Documented by: Lisinopril (Lisinopril 20 Mg Tablet) 20 mg PO DAILY [facility]; Protocol Last Admin: 10/20/21 07:49 Dose: 20 mg Documented by: Non-Formulary Medication (Telotristat Ethyl [Xermelo]) 250 mg PO TID [facility] Omeprazole (Omeprazole 20 Mg/10 Ml Susp.Recon) 10 mg PO BID@0630,1630 [facility] Last Admin: 10/20/21 05:54 Dose: 10 mg Documented by: Pharmacy Consult (Consult Rx Perform Med Rec) 1 each MISCELLANE ONCE PRN PRN Reason: Consult order Sodium Chloride (0.9 % Sodium Chloride Flush 3 Ml Syringe) 3 ml IVFLUSH QSHIFT [facility] Last Admin: 10/20/21 07:56 Dose: 3 ml Documented by: Venlafaxine HCl (Venlafaxine Hcl Er 75 Mg Cap.Er.24h) 75 mg PO DAILY [facility] Last Admin: 10/20/21 07:49 Dose: 75 mg Documented by: Home Medications Medication Instructions Recorded Confirmed Last Taken Type telotristat ethyl 250 mg tablet 250 mg PO TID tab 08/16/20 10/19/21 10/18/21 History (Xermelo) ascorbic acid (vitamin C) 500 mg 500 mg PO DAILY 10/19/21 10/19/21 10/18/21 History tablet (Vitamin C) hydrocortisone 2.5 % topical cream 1 appl TOPICAL BID PRN 10/19/21 10/19/21 10/18/21 History Physical Exam Vital Signs: Vital Signs: Last Vital Signs Temp 97.5 F 10/20/21 07:30 Pulse 70 10/20/21 07:30 Resp 18 10/20/21 07:30 BP 122/60 10/20/21 07:30 Pulse Ox 96 10/20/21 07:30 BMI result Body Mass Index 23.0 Const: General: comfortable HENMT: Other: Unremarkable Neck: Neck: Yes normal visual inspection Chest: Chest palpation & inspection: normal inspection of the chest Resp: Auscultation: crackles Cardio: Palpation: normal PMI Heart sounds: S1 normal heart sound present, S2 normal heart sound present, no gallops, Murmur heart sound present diastolic and systolic and no rubs GI: Palpation (GI): Soft to palpation Back/Spine/Pelvis: Other: unremarkable Skin: General skin exam: no rashes or lesions noted Neuro: Cognition (Neuro): normal cognition Extrem: General: Yes normal to inspection Psych: Appearance: grossly normal Objective Labs and Meds Result diagrams: 10/20/21 06:37 10/20/21 06:37 Lab results: Laboratory Results - last 24 hr 10/19/21 10/20/21 10/20/21 11:13 06:37 06:37 WBC 2.6 L RBC 3.03 L Hgb 8.8 L Hct 27.9 L MCV 92.1 MCH 29.0 MCHC 31.5 RDW 14.9 Plt Count 104 L MPV 10.0 Absolute Nucleated RBC 0.000 Nucleated RBC % (auto) 0.0 Sodium 141 Potassium 3.9 Chloride 99 Carbon Dioxide 34 H Anion Gap 12 BUN 11 Creatinine 1.13 Estim Creat Clear Calc 44.9 Estimated GFR 49 Fasting Glucose 107 H Calcium 8.9 Magnesium 1.9 Urine Color YELLOW Urine Appearance CLEAR Urine pH 5.5 Ur Specific [place] 1.010 Urine Protein NEG Urine Glucose (UA) NEG Urine Ketones NEG Urine Blood NEG Urine Nitrite NEG Ur Leukocyte Esterase NEG Imaging Radiologist's impression: Impressions Chest CTA 10/19/21 12:18 IMPRESSION: 1. No evidence of pulmonary embolism. 2. Interlobular septal thickening, bilateral ground-glass pulmonary opacities and more consolidative right upper lobe opacities, bilateral pleural effusions, and cardiomegaly. Constellation of findings are suggestive of pulmonary edema. Infectious/inflammatory process is in the differential, however, is thought to be less likely. Recommend clinical correlation. 3. Contrast reflux is noted in the hepatic veins suggesting elevated right heart pressures. VTE: Negative Assessment and Plan (1) Acute on chronic diastolic (congestive) heart failure: Status: Acute (2) Non-rheumatic aortic regurgitation: Status: Acute (3) Non-rheumatic mitral regurgitation: Status: Acute (4) Malignant carcinoid tumor of ileum: Status: Acute Plan EKG with sinus rhythm at 88/Min; left bundle-branch block pattern. Not seen in the EKG from last year. In the most recent echocardiogram, LVEF 55-60% with increased filling pressures. There was evidence of moderate aortic regurgitation and moderate mitral regurgitation. Possibly mild mitral stenosis. There was also evidence of increased right atrial pressure and pulmonary hypertension. Currently, she is anemic with a hemoglobin of 8.8. High sensitivity troponin 18.4. Cardiac BNP 710. CT chest findings are suggestive of pulmonary edema. At this time, continue IV diuretics as you are currently doing. With regard to cardiac findings, we need to evaluate if this is all carcinoid or unrelated. She will need a bubble study to assess for any shunting which can lead to left- sided carcinoid. This can be arranged for tomorrow. Otherwise, she likely needs a transesophageal echocardiogram and then probably a diagnostic catheterization after that. Will also need to get records from the cardio- oncologist she saw at [facility] few days ago. Will follow up with you. Procedures Date of Service Date of Service: 10/20/21
[2021-10-21 04:00] VITALS: BP 119/57; PULSE 69; RESP 16; TEMP 36.9; O2SAT 92
[2021-10-21 07:18] LABS: Hematocrit 30.3 % (37.0-47.0); Hemoglobin 9.6 g/dl (12.0-16.0); Mean Corpuscular HGB Conc 31.7 g/dl (31.0-35.0); Mean Corpuscular Hemoglobin 28.8 pg (27.0-33.0); Platelet Count 107 X10*3/uL (160-400); Red Blood Count 3.33 X10*6/uL (4.20-5.50); Red Cell Distribution Width 14.7 % (11.0-16.0); White Blood Count 2.9 X10*3/uL (4.8-10.8)
[2021-10-21 07:20] VITALS: BP 116/59; PULSE 67; RESP 20; TEMP 37; O2SAT 95
[2021-10-21 07:35] LABS: Anion Gap 13 (12-20); Blood Urea Nitrogen 11 mg/dL (9-16); Carbon Dioxide 32 mmol/L (22-29); Chloride 96 mmol/L (96-108); Creatinine Clr Calc Pharmacy 48.3; Estimated Glomerular Filt Rate 54; Glucose Fasting 109 mg/dL (60-99); Potassium 3.4 mmol/L (3.3-5.1); Sodium 138 mmol/L (135-145)
[2021-10-21 07:39] LABS: B Type Natriuretic Peptide 173 pg/mL (<100)
--- NOTE | 2021-10-21 09:30 | CA_ITS ---
Transthoracic Echocardiogram Patient (Last, First, Middle): Berta Kirkland M Gender: Female Date of : 1965 Age: 56 Procedure Date: 10/21/2021 Procedure Type: Transthoracic [place] [facility] [place] 160.02 cm Weight: 58.97 kg BSA: 1.61 m2 Heart Rate: bpm BP: 116 / 59 mmHg Pastry Chef: THIERRY Dawson MD: Sridhar Harrison MD Symptoms: bubble study Study Quality: Good Conclusions: - Normal left ventricular size, thickness, systolic function, and wall motion. The visually estimated ejection fraction is between 55-60%. - E/E prime ratio is >15, consistent with elevated filling pressures. - Normal right ventricular cavity size and systolic function. - There is moderate aortic valve regurgitation. - There is no evidence of interatrial shunt by color Doppler and contrast. - There is severe mitral valve regurgitation. - There is mild dilatation of the ascending aorta measuring 3.90 cm. Findings Left Ventricle Normal left ventricular size, thickness, systolic function, and wall motion. The visually estimated ejection fraction is between 55-60%. There is paradoxical septal motion consistent with a left bundle branch block. Diastolic function is indeterminate on the basis of available data. E/E prime ratio is >15, consistent with elevated filling pressures. Right Ventricle Normal right ventricular cavity size and systolic function. Atria The left atrium is moderately dilated. There is no evidence of interatrial shunt by color Doppler and contrast. The right atrium is normal in size. Aortic Valve There is a normal trileaflet aortic valve. There is no aortic valve stenosis. There is moderate aortic valve regurgitation. Mitral Valve There is mild anterior and posterior mitral leaflet thickening. The posterior mitral leaflet is immobile. There is severe mitral valve regurgitation. The effective regurgitant orifice is 54.00 cm2. There is no mitral valve stenosis. Pulmonic Valve Normal pulmonic valve structure and function. There is trace pulmonic valve regurgitation. Tricuspid Valve Normal right atrial pressure. Mild pulmonary hypertension is present. Great Vessels There is mild dilatation of the ascending aorta measuring 3.90 cm. The visualized portions of the pulmonary artery and branches are normal. Venous The inferior vena cava is normal in size and collapses greater than 50% with inspiration. Pericardium/Pleural There is a trivial circumferential pericardial effusion. Prior Study Comparison Significant changes compared to prior study dated: 09/11/2021. Severe MR, moderate AR Measurements 2D Linear Measurements IVSd: 0.77 0.6-0.9/0.6-1.0 cm LVIDd: 4.99 3.9-5.3/4.2-5.9 cm LVIDd Index: 3.10 2.4-3.2/2.2-3.1 cm/m2 LVIDs: 3.75 2.0-3.6 cm LVPWd: 0.99 0.7-1.1 cm LA Diam: 3.60 2.7-3.8/3.0-4.0 cm LAIDs Index: 2.24 1.5-2.3 cm/m2 LV Mass: 189.92 67-162/88-224 g LV Mass Index: 117.96 43-95/49-115 g/m2 LVOT Diam: 2.00 3.0+(-)1.3 cm 2D Systolic Function EF 4C: 46.30 >55% EF 2C: 47.30 >55% Mitral Valve MV VTI: 0.55 MV Pk Billy: 1.52 MV Mn Billy: 1.03 MV Pk Grad: 9.00 MV Mn Grad: 5.00 MV Pk E: 1.39 MV PK A: 1.11 MV Decel Time: 280.00 E/A: 1.30 E'Lateral: 4.79 E'Medial: 5.00 E/E' Med: 27.80 E/E' Lat: 29.00 MVA Continuity: 1.76 MR Vol - PW Dopp: 71.28 MR VTI: 2.16 MR ERO: 54.00 MR Alias Billy: 0.38 MR RAD: 0.90 Aortic Valve AoV Pk Billy: 2.03 AoV Mn Billy: 1.31 AoV VTI: 0.39 AoV Pk Grad: 16.00 Aov Mn Grad: 8.00 CARLOS Cont.VTI: 2.51 AI Pk Billy: 4.68 AI Mcdowell: 2.89 LVOT LVOT Pk Billy: 1.60 LVOT Mn Billy: 0.95 LVOT VTI: 0.31 LVOT Pk Grad: 10.00 LVOT Mn Grad: 4.00 LVOT Diam: 2.00 LVOT Area: 3.14 Diastolic Function MV Pk E: 1.39 MV Pk A: 1.11 E/A: 1.30 E'Medial: 5.00 E/E' Med: 27.80 E' Laterial: 4.79 E/E' Lat: 29.00 Right Ventricle TAPSE (mm): 17.80 TVS' Billy: 12.40 Tricuspid Valve TR Pk Billy: 2.89 TR Pk Grad: 33.00 RA Press: 8.00 RVSP: 41.00 Great Vessels Aorta Sinus of Valsalva: 3.34 2.0-3.[address] [place]: 3.03 1.7-3.4 cm Ao Asc: 3.90 2.1-3.4 cm Ao Arch: 2.40 Updated in Other Vendor System with Status of Final Peterson Zapata MD electronically signed on 10/23/2021 6:50:41 AM with status of Final
[2021-10-21] MEDS: lisinopriL 20 MG TABLET PO (09:52)
[2021-10-21] MEDS: 0.9 % Sodium Chloride Flush 3 ML SYRINGE IVFLUSH ×3 (09:52→20:08)
[2021-10-21] MEDS: Ascorbic Acid 500 MG TABLET PO (09:53)
[2021-10-21] MEDS: carvediloL 6.25 MG TABLET PO ×2 (09:53→20:08)
[2021-10-21] MEDS: Venlafaxine HCl ER 75 MG CAP.ER.24H PO (09:53)
[2021-10-21] MEDS: Enoxaparin Sodium 40 MG/0.4 ML SYRINGE SUBCUT (09:54)
[2021-10-21] MEDS: Furosemide 40 MG/4 ML VIAL IVPUSH ×2 (09:54→17:00)
[2021-10-21 11:54] VITALS: BP 129/60; PULSE 75; RESP 20; TEMP 35.8; O2SAT 99
--- NOTE | 2021-10-21 12:03 | MHC.CM.PN ---
Addendum entered by Mary Marte 10/21/21 14:49: Patient will not discharge today. Patient requires further dieresis. CM will follow. Original Note: IMM 10/20/21 Female 56 DX HF She is discharged to home today. Family will provide transportation.
--- NOTE | 2021-10-21 14:33 | PM.PNCARD ---
Subjective Subjective Date of Service: 10/21/21 Interval history: Patient seen examined at bedside. She was getting echocardiography. She is saying she is feeling better. She stopped her diuretics 3-4 weeks ago and progressively became more short of breath. She is seeing Dr. Spears at [facility] and will get records from him. Physical Exam Vital Signs: Last Vital Signs Temp 96.5 F L 10/21/21 11:54 Pulse 75 10/21/21 11:54 Resp 20 10/21/21 11:54 BP 129/60 10/21/21 11:54 Pulse Ox 99 10/21/21 11:54 BMI result Body Mass Index 23.0 GENERAL APPEARANCE: in no acute distress, pleasant. SKIN: no suspicious lesions, warm and dry. HEART: systolic murmur apex, regular rate and rhythm. LUNGS: clear to auscultation bilaterally. ABDOMEN: soft, nontender. EXTREMITIES: no edema. PERIPHERAL PULSES: equal. NEUROLOGIC: No gross deficits, AAO X 3 Objective Labs and Meds Result diagrams: 10/21/21 06:38 10/21/21 06:38 Lab results: Laboratory Results - last 24 hr 10/21/21 10/21/21 10/21/21 06:38 06:38 06:38 WBC 2.9 L RBC 3.33 L Hgb 9.6 L Hct 30.3 L MCV 91.0 MCH 28.8 MCHC 31.7 RDW 14.7 Plt Count 107 L MPV 10.0 Absolute Nucleated RBC 0.000 Nucleated RBC % (auto) 0.0 Sodium 138 Potassium 3.4 Chloride 96 Carbon Dioxide 32 H Anion Gap 13 BUN 11 Creatinine 1.05 Estim Creat Clear Calc 48.3 Estimated GFR 54 Fasting Glucose 109 H Calcium 9.0 B-Natriuretic Peptide 173 H Progress Note: A&P Assessment and plan (1) Non-rheumatic mitral regurgitation: Status: Acute (2) Non-rheumatic aortic regurgitation: Status: Acute Plan very pleasant 56-year-old female with carcinoid tumor presenting for congestive heart failure. She recently had congestive heart failure and at that time echocardiography has shown restricted movement of posterior mitral valve leaflet with moderate to severe mitral valve regurgitation. with diuretics and blood pressure control she did well and was discharged home but apparently stopped taking diuretics because she felt dehydrated. This was approximately 3-4 weeks ago. Over this time she became progressively more short of breath and came back. I think she needs diuretics and I have discussed with her that she should not start diuretics without discussing with me. We will get records from Dr. Spears. echocardiography was done today I briefly looked at it and I do not see any evidence of [id number] shunt by bubble study. Involvement of mitral valve is unusual and I agree with that but it has been reported before with very high levels of circulating serotonin breakdown products. I think this needs clearance and I think we need to pursue transesophageal echocardiogram as outpatient. I will also touch base with Dr. Spears. Thank you for allowing me to participate in the care of your patient. Please feel free to contact me if you have any questions. Fall Risk Details Current Medications: Current Medications Acetaminophen (Acetaminophen 325 Mg Tablet) 650 mg PO Q6H PRN PRN Reason: Pain, Mild (Pain Scale 1-3) Last Admin: 10/19/21 20:38 Dose: 650 mg Documented by: Ascorbic Acid (Ascorbic Acid 500 Mg Tablet) 500 mg PO DAILY [facility] Last Admin: 10/21/21 09:53 Dose: 500 mg Documented by: Carvedilol (Carvedilol 6.25 Mg Tablet) 6.25 mg PO BID [facility]; Protocol Last Admin: 10/21/21 09:53 Dose: 6.25 mg Documented by: Enoxaparin Sodium (Enoxaparin Sodium 40 Mg/0.4 Ml Syringe) 40 mg SUBCUT Q24H [facility] Last Admin: 10/21/21 09:54 Dose: 40 mg Documented by: Furosemide (Furosemide 40 Mg/4 Ml Vial) 40 mg IVPUSH BID@0900,1800 [facility]; Protocol Last Admin: 10/21/21 09:54 Dose: 40 mg Documented by: Lisinopril (Lisinopril 20 Mg Tablet) 20 mg PO DAILY [facility]; Protocol Last Admin: 10/21/21 09:52 Dose: 20 mg Documented by: Non-Formulary Medication (Telotristat Ethyl [Xermelo]) 250 mg PO TID [facility] Omeprazole (Omeprazole 20 Mg/10 Ml Susp.Recon) 10 mg PO BID@0630,1630 [facility] Last Admin: 10/21/21 06:09 Dose: 10 mg Documented by: Pharmacy Consult (Consult Rx Perform Med Rec) 1 each MISCELLANE ONCE PRN PRN Reason: Consult order Sodium Chloride (0.9 % Sodium Chloride Flush 3 Ml Syringe) 3 ml IVFLUSH QSHIFT [facility] Last Admin: 10/21/21 09:52 Dose: 3 ml Documented by: Venlafaxine HCl (Venlafaxine Hcl Er 75 Mg Cap.Er.24h) 75 mg PO DAILY [facility] Last Admin: 10/21/21 09:53 Dose: 75 mg Documented by: Time Spent With Patient Time: Total time spent is greater than 50% in coordination of care (as documented) at patient's floor/unit and/or counseling patient: Time with patient: 15 - 24 minutes Progress Note: Quality Stroke Does the patient have a stroke diagnosis?: No Procedures Date of Service Date of Service: 10/21/21
--- NOTE | 2021-10-21 14:45 | P.PNIM_ITS ---
Subjective Subjective Date of Service: 10/21/21 Interval History: cc: sob interval history: feeling poorly today Cardiovascular Cardiovascular: Reports no additional cardiovascular complaints Respiratory Respiratory: Reports no additional respiratory complaints Physical Exam Vital Signs: Vital Signs: Last Vital Signs Temp 96.5 F L 10/21/21 11:54 Pulse 75 10/21/21 11:54 Resp 20 10/21/21 11:54 BP 129/60 10/21/21 11:54 Pulse Ox 99 10/21/21 11:54 BMI result Body Mass Index 23.0 ?GENERAL APPEARANCE: in no acute distress, pleasant. SKIN: no suspicious lesions, warm and dry. HEART:? systolic murmur apex, regular rate and rhythm. LUNGS: clear to auscultation bilaterally. ABDOMEN: soft, nontender. EXTREMITIES: no edema. PERIPHERAL PULSES: equal. NEUROLOGIC: No gross deficits, AAO X 3 Objective Data Active Medications Acetaminophen (Acetaminophen 325 Mg Tablet) 650 mg PO Q6H PRN PRN Reason: Pain, Mild (Pain Scale 1-3) Last Admin: 10/19/21 20:38 Dose: 650 mg Documented by: CARA Ascorbic Acid (Ascorbic Acid 500 Mg Tablet) 500 mg PO DAILY [facility] Last Admin: 10/21/21 09:53 Dose: 500 mg Documented by: ESME Carvedilol (Carvedilol 6.25 Mg Tablet) 6.25 mg PO BID [facility]; Protocol Last Admin: 10/21/21 09:53 Dose: 6.25 mg Documented by: ESME Enoxaparin Sodium (Enoxaparin Sodium 40 Mg/0.4 Ml Syringe) 40 mg SUBCUT Q24H [facility] Last Admin: 10/21/21 09:54 Dose: 40 mg Documented by: ESME Furosemide (Furosemide 40 Mg/4 Ml Vial) 40 mg IVPUSH BID@0900,1800 [facility]; Protocol Last Admin: 10/21/21 09:54 Dose: 40 mg Documented by: ESME Lisinopril (Lisinopril 20 Mg Tablet) 20 mg PO DAILY [facility]; Protocol Last Admin: 10/21/21 09:52 Dose: 20 mg Documented by: ESME Non-Formulary Medication (Telotristat Ethyl [Xermelo]) 250 mg PO TID [facility] Omeprazole (Omeprazole 20 Mg/10 Ml Susp.Recon) 10 mg PO BID@0630,1630 [facility] Last Admin: 10/21/21 06:09 Dose: 10 mg Documented by: DAMEON Pharmacy Consult (Consult Rx Perform Med Rec) 1 each MISCELLANE ONCE PRN PRN Reason: Consult order Sodium Chloride (0.9 % Sodium Chloride Flush 3 Ml Syringe) 3 ml IVFLUSH QSHIFT [facility] Last Admin: 10/21/21 09:52 Dose: 3 ml Documented by: ESME Venlafaxine HCl (Venlafaxine Hcl Er 75 Mg Cap.Er.24h) 75 mg PO DAILY [facility] Last Admin: 10/21/21 09:53 Dose: 75 mg Documented by: ESME Labs CBC & Chem 7: 10/21/21 06:38 10/21/21 06:38 Labs: Laboratory Results - last 24 hr 10/21/21 10/21/21 10/21/21 06:38 06:38 06:38 MCV 91.0 MCH 28.8 MCHC 31.7 RDW 14.7 Plt Count 107 L MPV 10.0 Absolute Nucleated RBC 0.000 Nucleated RBC % (auto) 0.0 Anion Gap 13 Estim Creat Clear Calc 48.3 Estimated GFR 54 Fasting Glucose 109 H Calcium 9.0 B-Natriuretic Peptide 173 H Assessment and Plan (1) Dysphagia: Status: Resolved (2) Acute CHF: Status: Resolved (3) Depression: Status: Acute Plan 56F presented with sob acute on chronic diastolic chf with AI and MR overall improved, feeling a bit worse today compared with yesterday, still more fluid to come off, continue iv lasix monitor lytes no septal defect on echo cardio following metastatic caricnoid continue somatastatin analogue mood disorder effexor htn lisinopril coreg dvt prophylaxis - lovenox full code reason for continued hospitalization: Patient with symptomatic heart failure requiring IV diuresis with risk factors including metastatic carcinoid disease, Quality Stroke Does the patient have a stroke diagnosis?: No VTE Prior VTE?: No VTE Risk Level:: Medical - moderate - high VTE Device Contraindication: Treatment Not Indicated VTE Drug Contraindication: N/A - Med Ordered
[2021-10-21 16:15] VITALS: BP 137/63; PULSE 68; RESP 17; TEMP 35.8; O2SAT 97
[2021-10-21 19:46] VITALS: BP 122/60; PULSE 80; RESP 18; TEMP 36.3; O2SAT 96
[2021-10-22] VITALS (7 sets, daily range): BP systolic 103–126; BP diastolic 49–60; PULSE 69–73; RESP 15–18; TEMP 36.1–36.9; O2SAT 94–96
[2021-10-22 06:42] LABS: Anion Gap 13 (12-20); Blood Urea Nitrogen 12 mg/dL (9-16); Calcium 9.2 mg/dL (8.4-10.2); Carbon Dioxide 34 mmol/L (22-29); Chloride 97 mmol/L (96-108); Creatinine Clr Calc Pharmacy 46.9; Estimated Glomerular Filt Rate 52; Glucose Fasting 105 mg/dL (60-99); Potassium 3.4 mmol/L (3.3-5.1); Sodium 141 mmol/L (135-145)
[2021-10-22 06:51] LABS: Hematocrit 30.4 % (37.0-47.0); Hemoglobin 9.8 g/dl (12.0-16.0); Mean Corpuscular HGB Conc 32.2 g/dl (31.0-35.0); Mean Corpuscular Hemoglobin 29.2 pg (27.0-33.0); Mean Corpuscular Volume 90.5 fL (80.0-98.0); Mean Platelet Volume 9.5 fL (9.4-12.3); Platelet Count 111 X10*3/uL (160-400); Red Blood Count 3.36 X10*6/uL (4.20-5.50); Red Cell Distribution Width 14.6 % (11.0-16.0)
[2021-10-22] MEDS: Venlafaxine HCl ER 75 MG CAP.ER.24H PO (09:32)
[2021-10-22] MEDS: lisinopriL 20 MG TABLET PO (09:32)
[2021-10-22] MEDS: Ascorbic Acid 500 MG TABLET PO (09:33)
[2021-10-22] MEDS: carvediloL 6.25 MG TABLET PO ×2 (09:33→22:39)
[2021-10-22] MEDS: 0.9 % Sodium Chloride Flush 3 ML SYRINGE IVFLUSH ×2 (09:34→16:57)
[2021-10-22] MEDS: Furosemide 40 MG/4 ML VIAL IVPUSH ×2 (09:34→16:57)
--- NOTE | 2021-10-22 12:32 | P.PNCA_ITS ---
Subjective Subjective Date of Service: 10/22/21 <MIGUEL Claire - Last Filed: 10/22/21 12:41> 10/22/21 <Peterson Zapata MD - Last Filed: 10/22/21 16:17> Principal diagnosis: CHF, MR, AR <MIGUEL Claire - Last Filed: 10/22/21 12:41> Interval history: Cardiology follow up for the above. Seen at 1110. Today she reports feeling better but breathing is still short with light activity such as going to BR or walking in room. Slept well. No cough. No chest pains, palpitation, dizziness, edema. present. <MIGUEL Claire - Last Filed: 10/22/21 12:41> Review of Systems Review of Systems as above <MIGUEL Claire - Last Filed: 10/22/21 12:41> Yes all other systems are reviewed and are negative <MIGUEL Claire - Last Filed: 10/22/21 12:41> Physical Exam Vital Signs: Last Vital Signs Temp 97.8 F 10/22/21 12:00 Pulse 71 10/22/21 12:00 Resp 18 10/22/21 12:00 BP 126/60 10/22/21 12:00 Pulse Ox 96 10/22/21 12:00 BMI result Body Mass Index 23.0 <MIGUEL Claire - Last Filed: 10/22/21 12:41> Const General: cooperative, healthy appearing, no acute distress, alert and awake <MIGUEL Claire - Last Filed: 10/22/21 12:41> Orientation/consciousness: patient oriented x3 <MIGUEL Claire - Last Filed: 10/22/21 12:41> Neck Neck: Yes normal visual inspection and Yes no JVD <MIGUEL Claire Last Filed: 10/22/21 12:41> Resp Effort & Inspection: normal respiratory effort, able to speak in complete sentences and not labored <MIGUEL Claire - Last Filed: 10/22/21 12:41> Auscultation: clear to auscultation bilaterally, no crackles, no rales, no rhonchi and no wheezes <Edel LeonRYANC - Last Filed: 10/22/21 12:41> Cardio Rate: regular rate <Edel LeonRYANC - Last Filed: 10/22/21 12:41> Rhythm: regular rhythm <Edel LeonRYANC - Last Filed: 10/22/21 12:41> Heart sounds: S1 normal heart sound present and S2 normal heart sound present <Edel LeonRYANC - Last Filed: 10/22/21 12:41> Peripheral pulses: Peripheral pulses 2+ throughout <Edel LeonSEE-C - Last Filed: 10/22/21 12:41> Neuro General: patient oriented x3 <Edel LeonRYANC - Last Filed: 10/22/21 12:41> Extrem General: Yes normal to inspection and No edema <Edel Cho RYAN LeonC - Last Filed: 10/22/21 12:41> Objective Labs and Meds Result diagrams: : 10/22/21 06:08 10/22/21 06:08 <Edel LeonRYANC - Last Filed: 10/22/21 12:41> Lab results: Laboratory Results - last 24 hr 10/22/21 10/22/21 06:08 06:08 WBC 3.0 L RBC 3.36 L Hgb 9.8 L Hct 30.4 L MCV 90.5 MCH 29.2 MCHC 32.2 RDW 14.6 Plt Count 111 L MPV 9.5 Absolute Nucleated RBC 0.000 Nucleated RBC % (auto) 0.0 Sodium 141 Potassium 3.4 Chloride 97 Carbon Dioxide 34 H Anion Gap 13 BUN 12 Creatinine 1.08 Estim Creat Clear Calc 46.9 Estimated GFR 52 Fasting Glucose 105 H Calcium 9.2 <Edel Cho RYAN LeonC - Last Filed: 10/22/21 12:41> Progress Note: A&P Assessment and plan (1) Acute on chronic diastolic (congestive) heart failure: Status: Acute <Edel PengMIGUEL wiseman - Last Filed: 10/22/21 12:41> Assessment and Plan: Being treated for acute on chronic diastolic HF. Had not been taking her diuretics at home. Being diuresed with IV Lasix. I+O not monitored - pt using BR. She reports feeling better but still has underlying sob with activity which she states has been present for many months. Appears euvolemic on exam. BNP down to 173 yesterday, from 710 on 10/19. Eho from 09/10/21 showed EF 55-60%, abnormal diastolic function, mod AR, mod to severe MR. We will plan for an outpt [facility] to further evaluate. Will review with Dr Zapata and likely change her to PO Lasix. Continue usual carvedilol and Lisinopril. <MIGUEL Claire - Last Filed: 10/22/21 12:41> (2) Non-rheumatic aortic regurgitation: Status: Acute <MIGUEL Claire - Last Filed: 10/22/21 12:41> (3) Non-rheumatic mitral regurgitation: Status: Acute <MIGUEL Claire - Last Filed: 10/22/21 12:41> (4) Hx of left bundle branch block: Status: Acute <MIGUEL Claire - Last Filed: 10/22/21 12:41> Assessment and Plan: Rate related LBBB noted <MIGUEL Claire - Last Filed: 10/22/21 12:41> Plan Patient seen and examined bedside. Continues to be short of breath with exertion. Still has JVD and hepatojugular reflux. I think we continue IV diuretics today. Will reassess her tomorrow for oral diuretics. Will discuss with her life insurance actuary at [facility] about the valvular heart disease. Thank you for allowing me to participate in the care of your patient. Please feel free to contact me if you have any questions. <Peterson Zapata MD - Last Filed: 10/22/21 16:17> Fall Risk Details Current Medications: Current Medications Acetaminophen (Acetaminophen 325 Mg Tablet) 650 mg PO Q6H PRN PRN Reason: Pain, Mild (Pain Scale 1-3) Last Admin: 10/19/21 20:38 Dose: 650 mg Documented by: Ascorbic Acid (Ascorbic Acid 500 Mg Tablet) 500 mg PO DAILY GUY Last Admin: 10/22/21 09:33 Dose: 500 mg Documented by: Carvedilol (Carvedilol 6.25 Mg Tablet) 6.25 mg PO BID [facility]; Protocol Last Admin: 10/22/21 09:33 Dose: 6.25 mg Documented by: Enoxaparin Sodium (Enoxaparin Sodium 40 Mg/0.4 Ml Syringe) 40 mg SUBCUT Q24H [facility] Last Admin: 10/22/21 09:39 Dose: Not Given Documented by: Furosemide (Furosemide 40 Mg/4 Ml Vial) 40 mg IVPUSH BID@0900,1800 [facility]; Protocol Last Admin: 10/22/21 09:34 Dose: 40 mg Documented by: Lisinopril (Lisinopril 20 Mg Tablet) 20 mg PO DAILY [facility]; Protocol Last Admin: 10/22/21 09:32 Dose: 20 mg Documented by: Omeprazole (Omeprazole 20 Mg/10 Ml Susp.Recon) 10 mg PO BID@0630,1630 [facility] Last Admin: 10/22/21 06:09 Dose: 10 mg Documented by: Pharmacy Consult (Consult Rx Perform Med Rec) 1 each MISCELLANE ONCE PRN PRN Reason: Consult order Sodium Chloride (0.9 % Sodium Chloride Flush 3 Ml Syringe) 3 ml IVFLUSH QSHIFT [facility] Last Admin: 10/22/21 09:34 Dose: 3 ml Documented by: Venlafaxine HCl (Venlafaxine Hcl Er 75 Mg Cap.Er.24h) 75 mg PO DAILY [facility] Last Admin: 10/22/21 09:32 Dose: 75 mg Documented by: <MIGUEL Claire - Last Filed: 10/22/21 12:41> Time Spent With Patient Time: Total time spent is greater than 50% in coordination of care (as documented) at patient's floor/unit and/or counseling patient: <MIGUEL Claire - Last Filed: 10/22/21 12:41> Time with patient: 15 - 24 minutes <MIGUEL Claire - Last Filed: 10/22/21 12:41> Progress Note: Quality Stroke Does the patient have a stroke diagnosis?: No <MIGUEL Claire - Last Filed: 10/22/21 12:41> Procedures Date of Service Date of Service: 10/22/21 <MIGUEL Claire - Last Filed: 10/22/21 12:41>
--- NOTE | 2021-10-22 15:49 | P.PNIM_ITS ---
Subjective Subjective Date of Service: 10/22/21 Interval History: cc: sob interval history:still some sob Cardiovascular Cardiovascular: Reports no additional cardiovascular complaints Gastrointestinal Gastrointestinal: Reports no additional gastrointestinal complaints Physical Exam Vital Signs: Vital Signs: Last Vital Signs Temp 97.8 F 10/22/21 12:00 Pulse 71 10/22/21 12:00 Resp 18 10/22/21 12:00 BP 126/60 10/22/21 12:00 Pulse Ox 96 10/22/21 12:00 BMI result Body Mass Index 23.0 GENERAL APPEARANCE: in no acute distress, pleasant. SKIN: no suspicious lesions, warm and dry. HEART:? systolic murmur apex, regular rate and rhythm. LUNGS: clear to auscultation bilaterally. ABDOMEN: soft, nontender. EXTREMITIES: no edema. PERIPHERAL PULSES: equal. NEUROLOGIC: No gross deficits, AAO X 3 Objective Data Active Medications Acetaminophen (Acetaminophen 325 Mg Tablet) 650 mg PO Q6H PRN PRN Reason: Pain, Mild (Pain Scale 1-3) Last Admin: 10/19/21 20:38 Dose: 650 mg Documented by: CARA Ascorbic Acid (Ascorbic Acid 500 Mg Tablet) 500 mg PO DAILY [facility] Last Admin: 10/22/21 09:33 Dose: 500 mg Documented by: HAMMAD Carvedilol (Carvedilol 6.25 Mg Tablet) 6.25 mg PO BID [facility]; Protocol Last Admin: 10/22/21 09:33 Dose: 6.25 mg Documented by: HAMMAD Enoxaparin Sodium (Enoxaparin Sodium 40 Mg/0.4 Ml Syringe) 40 mg SUBCUT Q24H [facility] Last Admin: 10/22/21 09:39 Dose: Not Given Documented by: HAMMAD Non-Admin Reason: Patient Refused Furosemide (Furosemide 40 Mg/4 Ml Vial) 40 mg IVPUSH BID@0900,1800 [facility]; Protocol Last Admin: 10/22/21 09:34 Dose: 40 mg Documented by: HAMMAD Lisinopril (Lisinopril 20 Mg Tablet) 20 mg PO DAILY [facility]; Protocol Last Admin: 10/22/21 09:32 Dose: 20 mg Documented by: HAMMAD Omeprazole (Omeprazole 20 Mg/10 Ml Susp.Recon) 10 mg PO BID@0630,1630 [facility] Last Admin: 10/22/21 06:09 Dose: 10 mg Documented by: DAMEON Pharmacy Consult (Consult Rx Perform Med Rec) 1 each MISCELLANE ONCE PRN PRN Reason: Consult order Sodium Chloride (0.9 % Sodium Chloride Flush 3 Ml Syringe) 3 ml IVFLUSH QSHIFT [facility] Last Admin: 10/22/21 09:34 Dose: 3 ml Documented by: HAMMAD Venlafaxine HCl (Venlafaxine Hcl Er 75 Mg Cap.Er.24h) 75 mg PO DAILY [facility] Last Admin: 10/22/21 09:32 Dose: 75 mg Documented by: HAMMAD Labs CBC & Chem 7: 10/22/21 06:08 10/22/21 06:08 Labs: Laboratory Results - last 24 hr 10/22/21 10/22/21 06:08 06:08 MCV 90.5 MCH 29.2 MCHC 32.2 RDW 14.6 Plt Count 111 L MPV 9.5 Absolute Nucleated RBC 0.000 Nucleated RBC % (auto) 0.0 Anion Gap 13 Estim Creat Clear Calc 46.9 Estimated GFR 52 Fasting Glucose 105 H Calcium 9.2 Assessment and Plan (1) Dysphagia: Status: Resolved (2) Acute CHF: Status: Resolved (3) Depression: Status: Acute Plan 56F presented with sob acute on chronic diastolic chf with AI and MR overall improved, still more fluid to come off, continue iv lasix monitor lytes no septal defect on echo cardio 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
[2021-10-23 03:38] VITALS: BP 118/60; PULSE 70; RESP 15; TEMP 36.6; O2SAT 96
[2021-10-23 06:45] LABS: Anion Gap 13 (12-20); Blood Urea Nitrogen 12 mg/dL (9-16); Calcium 9.2 mg/dL (8.4-10.2); Carbon Dioxide 35 mmol/L (22-29); Chloride 96 mmol/L (96-108); Creatinine Clr Calc Pharmacy 46.1; Estimated Glomerular Filt Rate 51; Glucose Fasting 105 mg/dL (60-99); Potassium 3.4 mmol/L (3.3-5.1); Sodium 141 mmol/L (135-145)
[2021-10-23 06:54] LABS: Hematocrit 30.2 % (37.0-47.0); Hemoglobin 9.4 g/dl (12.0-16.0); Mean Corpuscular HGB Conc 31.1 g/dl (31.0-35.0); Mean Corpuscular Hemoglobin 28.7 pg (27.0-33.0); Mean Corpuscular Volume 92.1 fL (80.0-98.0); Mean Platelet Volume 9.6 fL (9.4-12.3); Platelet Count 119 X10*3/uL (160-400); Red Blood Count 3.28 X10*6/uL (4.20-5.50); Red Cell Distribution Width 14.8 % (11.0-16.0); White Blood Count 2.9 X10*3/uL (4.8-10.8)
[2021-10-23 07:25] VITALS: BP 99/56; PULSE 60; RESP 18; TEMP 36.8; O2SAT 97
[2021-10-23] MEDS: 0.9 % Sodium Chloride Flush 3 ML SYRINGE IVFLUSH (07:56)
[2021-10-23] MEDS: Venlafaxine HCl ER 75 MG CAP.ER.24H PO (07:56)
[2021-10-23] MEDS: carvediloL 6.25 MG TABLET PO (07:56)
[2021-10-23] MEDS: Ascorbic Acid 500 MG TABLET PO (07:56)
[2021-10-23 08:05] VITALS: BP 110/64; PULSE 67
[2021-10-23 11:26] VITALS: BP 128/70; PULSE 62; RESP 18; TEMP 36.1; O2SAT 97
--- NOTE | 2021-10-23 11:39 | PM.DS ---
DS: Providers Provider Date of Service: 10/23/21 Date of admission: 10/19/21 14:02 Primary care physician: Geni Pierson MD Consults: 10/19/21 14:00 Consult to Cardiology Routine Consulting Provider: Artur Carson Reason for consultation: chf, AI, MR, carcinoid DS: Diagnosis Discharge Diagnosis (1) Acute on chronic diastolic (congestive) heart failure: Status: Acute (2) Non-rheumatic aortic regurgitation: Status: Acute (3) Non-rheumatic mitral regurgitation: Status: Acute (4) Hx of left bundle branch block: Status: Acute DS: Summary Hospital Course Hospital Course: admission note HPI 56-year-old female with past medical history of metastatic carcinoid heart disease presented with shortness of breath.? Patient states she has had shortness of breath for several months that has been progressive.? [place] [facility] hospitalization for [place]F.? Patient was feeling well after that, then over the past 1-2 weeks she has been having progressive shortness of breath and orthopnea with about 10 lb weight gain associated with abdominal bloating, denies edema. Hospital course the patient was admitted for evaluation of shortness of breath. Images showed evidence of acute on chronic diastolic heart failure with known history of aortic and mitral regurgitation. Seen and evaluated by Cardiology team who did an echo showing no septal defect with diastolic dysfunction. Responded well to treatment with IV Lasix. Plan to discharge home on her home medication with addition of an Lasix and to follow-up with her cardiology team as outpatient. To repeat BMP next week. Time Spent with Patient Time attestation: Total time spent providing and/or coordinating discharge services: Discharge coordination time: Greater than 30 minutes Quality: Stroke Does the patient have a stroke diagnosis?: No Physical Exam Vital Signs: Vital Signs: Last Vital Signs Temp 97.0 F 10/23/21 11:26 Pulse 62 10/23/21 11:26 Resp 18 10/23/21 11:26 BP 128/70 10/23/21 11:26 Pulse Ox 97 10/23/21 11:26 BMI result Body Mass Index 23.0 Const: Other: Constitutional : Alert, oriented, not in distress Neck : Normal inspection, Supple Cardiovascular : RRR, S1 S2, Systolic murmur, no lower extremity edema Respiratory : Good bilateral air entry, no crackles, wheezes or rhonchi Gastrointestinal: soft, lax, Normal bowel sounds, Non tender Skin : Warm, Dry Neurological : Alert & oriented x3, No focal deficit DS: Data Data Completed and Pending Labs on day of discharge: Laboratory Results - last 24 hr 10/23/21 10/23/21 06:05 06:05 WBC 2.9 L RBC 3.28 L Hgb 9.4 L Hct 30.2 L MCV 92.1 MCH 28.7 MCHC 31.1 RDW 14.8 Plt Count 119 L MPV 9.6 Absolute Nucleated RBC 0.000 Nucleated RBC % (auto) 0.0 Sodium 141 Potassium 3.4 Chloride 96 Carbon Dioxide 35 H Anion Gap 13 BUN 12 Creatinine 1.10 Estim Creat Clear Calc 46.1 Estimated GFR 51 Fasting Glucose 105 H Calcium 9.2 Discharge Plan Discharge Patient Disposition: Home, Self-Care Discharge Diagnosis: acute heart failure exacerbation Referrals: Geni Cooper MD [Primary Care Provider] - 1 Week Discharge Medications: New furosemide 40 mg tablet 40 mg PO DAILY Qty: 30 0RF Continued carvedilol 6.25 mg tablet 6.25 mg PO BID 90 Days Qty: 180 3RF Rx Instructions: must administer with a meal/food venlafaxine 75 mg capsule,extended release 24hr 75 mg PO DAILY 90 Days Qty: 90 3RF omeprazole 10 mg capsule,delayed release(DR/EC) 10 mg PO BID Qty: 180 0RF lisinopril 20 mg Tablet 20 mg PO DAILY Qty: 30 2RF Protocol: Hold for SBP< HOLD for SBP < : 90 ondansetron HCl 8 mg tablet 8 mg PO Q8H PRN (Reason: nausea and vomiting) Qty: 30 0RF hydrocortisone 2.5 % cream 1 appl topical BID PRN (Reason: Rash) 0RF ascorbic acid (vitamin C) [Vitamin C] 500 mg Tablet 500 mg PO DAILY 0RF Xermelo 250 mg tablet 250 mg PO TID 0RF Rx Instructions: must administer with a meal/food (DME) blood pressure monitor [Blood Pressure Kit] Kit See Rx Instructions .ROUTE .MEDSUPPLY Qty: 1 0RF Rx Instructions: As directed - take BP daily and keep a log Discharge Orders: Discharge Order (Routine); Ordered 10/23/21 Ordered By: Khaled Abuhashmeh Diet: low salt diet Activity on Discharge: As tolerated Stand Alone Forms: Patient Portal Discharge page Other Ambulatory Orders: Basic Metabolic Panel (Routine) Timeframe: 1 Week Facility: [facility] - Location: Laboratory Ordered By: Emerita Kumar Care Plan Goals: Read below Health Concerns: Read below Plan of Treatment: Read below Assessment: you were admitted to the hospital for evaluation of difficulty breathing. Found to be in heart failure exacerbation treated with IV Lasix with good response as you were evaluated by Cardiology team who recommended on starting Lasix and home. Start Lasix 40 mg daily monitor your weight at home Follow up with Cardiology team as outpatient to repeat blood test next week Discharge Date/Time: 10/23/21 13:03
--- NOTE | 2021-10-23 12:47 | MHC.CM.PN ---
IMM 10/23/21 Female 56 DX HF She is discharged today to home. Family is providing transportation.
--- NOTE | 2021-10-23 16:00 | PM.PNCARD ---
Subjective Subjective Date of Service: 10/23/21 Principal diagnosis: CHF, MR, AR Interval history: cardiology follow up for the above. Seen at 1045. Today she reports improvement in breathing compared to yesterday. She is ambulating around room and tolerating it well. Slept well. Feels ready for discharge. No chest pains, palpitations, dizziness. No leg edema. Aware of plan for outpt [facility]. Review of Systems Review of Systems as above Yes all other systems are reviewed and are negative Physical Exam Vital Signs: Last Vital Signs Temp 97.0 F 10/23/21 11:26 Pulse 62 10/23/21 11:26 Resp 18 10/23/21 11:26 BP 128/70 10/23/21 11:26 Pulse Ox 97 10/23/21 11:26 BMI result Body Mass Index 23.0 Const General: cooperative, healthy appearing, no acute distress, alert and awake Orientation/consciousness: patient oriented x3 Neck Neck: Yes normal visual inspection and Yes no JVD Resp Effort & Inspection: normal respiratory effort, able to speak in complete sentences and not labored Auscultation: clear to auscultation bilaterally, no crackles, no rales, no rhonchi and no wheezes Cardio Rate: regular rate Rhythm: regular rhythm Heart sounds: S2 normal heart sound present and Murmur heart sound present (left lateral mitral systolic murmur noted) Peripheral pulses: Peripheral pulses 2+ throughout Neuro General: patient oriented x3 Extrem General: Yes normal to inspection and No edema Objective Labs and Meds Result diagrams: 10/23/21 06:05 10/23/21 06:05 Lab results: Laboratory Results - last 24 hr 10/23/21 10/23/21 06:05 06:05 WBC 2.9 L RBC 3.28 L Hgb 9.4 L Hct 30.2 L MCV 92.1 MCH 28.7 MCHC 31.1 RDW 14.8 Plt Count 119 L MPV 9.6 Absolute Nucleated RBC 0.000 Nucleated RBC % (auto) 0.0 Sodium 141 Potassium 3.4 Chloride 96 Carbon Dioxide 35 H Anion Gap 13 BUN 12 Creatinine 1.10 Estim Creat Clear Calc 46.1 Estimated GFR 51 Fasting Glucose 105 H Calcium 9.2 Progress Note: A&P Assessment and plan (1) Acute on chronic diastolic (congestive) heart failure: Status: Acute Assessment and Plan: Being treated for acute on chronic diastolic HF. Had not been taking her diuretics at home. Being diuresed with IV Lasix. I+O not monitored - pt using BR. Still had sob with ambulation yesterday and reports she is feeling less sob today. Appears euvolemic on exam. BNP down to 173 10/21, from 710 on 10/19. Echo from 09/10/21 showed EF 55-60%, abnormal diastolic function, mod AR, mod to severe MR. Can be discharged on Lasix 40mg daily, which was the home dose she shouldve been taking. Continue other usual home meds. Importance of med compliance reviewed. s/s HF reviewed. We will plan for an outpt [facility] to further evaluate AR/ MR. We will arrange for outpt cardiology follow up. Dr. Zapata to communicate with her [place] wheel blocker. ? (2) Non-rheumatic aortic regurgitation: Status: Acute (3) Non-rheumatic mitral regurgitation: Status: Acute (4) Hx of left bundle branch block: Status: Acute (5) Carcinoid heart disease: Status: Acute Time Spent With Patient Time: Total time spent is greater than 50% in coordination of care (as documented) at patient's floor/unit and/or counseling patient: 20 Progress Note: Quality Stroke Does the patient have a stroke diagnosis?: No Procedures Date of Service Date of Service: 10/23/21
== END 2021-10-23 13:03 | disposition home or self-care (01) | DRG 291 ==
LOC: HO.ED 10:48 → HO.EDOVER 14:50 → HO.IMC 16:45
PROVIDERS: Admitting Provider Internal Medicine; Emergency Provider Emergency Medicine Emergency Medical Services; PCP Internal Medicine; Visit Provider Student in an Organized Health Care Education/Training Program
DX: I11.0 Hypertensive heart disease with heart failure (principal); I50.33 Acute on chronic diastolic (congestive) heart failure; C7A.012 Malignant carcinoid tumor of the ileum; C7B.02 Secondary carcinoid tumors of liver; E34.0 Carcinoid syndrome; F32.A Depression, unspecified; I44.7 Left bundle-branch block, unspecified; I08.0 Rheumatic disorders of both mitral and aortic valves; Z91.14 Patient's other noncompliance with medication regimen; Z79.899 Other long term (current) drug therapy
CPT/HCPCS: 36415; 71045; 71275; 80048; 81003; 83735; 83880; 84484; 85027; 85379; 87635; 93005; 93306; 99285; J1650; J1940; Q9967

== ENCOUNTER 2021-11-05 05:56 | Outpatient (REF) | payer OTHER, SELFPAY ==
--- NOTE | ~2021-11-05 | CT_ITS ---
EXAMINATION: CT ABDOMEN AND PELVIS WITH CONTRAST CLINICAL INFORMATION: Carcinoid syndrome. COMPARISON: Previous CT of the abdomen and pelvis, most recent September 2021. TECHNIQUE: Multidetector volumetric images were obtained from the superior aspect of the liver through the pubic symphysis following administration 85 mL of Omnipaque 350 intravenous contrast. Sagittal and coronal reformatted images were obtained on the technologist's workstation. Oral contrast: Yes This CT examination was performed using dose optimization techniques as appropriate, variously including the following: *Automated exposure control *Adjustment of mA and/or kV according to patient size (this includes techniques or standardized protocols for targeted exams where dose is matched to indication/reason for exam; i.e. extremities or head) *Use of iterative reconstruction technique DLP: 297 mGy-cm FINDINGS: LUNG BASES: The right lower lobe pulmonary nodules appear decreased from September 2021. No new pulmonary nodule is seen. LIVER, GALLBLADDER, AND BILIARY TREE: The liver is normal in contour. There is heterogeneous enhancement of the liver. There is no appreciable change in the enhancing lesion in the peripheral right lobe of the liver measuring 3.8 x 4 cm compared to recent exam September 2021. No new liver lesion is seen. The gallbladder is normal. There is no biliary duct dilatation. The gallbladder is unremarkable with no evidence of radiopaque gallstones, gallbladder wall thickening, or obvious pericholecystic inflammatory changes. PANCREAS: Unremarkable. SPLEEN: Unremarkable. ADRENAL GLANDS: Unremarkable. KIDNEYS AND URETERS: The kidneys are normal in size, shape, and attenuation. No hydronephrosis, hydroureter, or calculi seen. No perinephric stranding. BLADDER: Unremarkable. GASTROINTESTINAL TRACT: There are postsurgical changes to the distal small bowel and cecum. Small and large bowel is otherwise normal. ABDOMINAL WALL: No significant hernia is appreciated. LYMPH NODES: There are enlarged small bowel mesentery and retroperitoneal lymph nodes. Largest alphonso mass at the root of the small bowel mesentery and measures 1.8 x 2.2 cm axial image 38 series 3. This surrounds the SMA and SMV and and narrows the SMV. There are enlarged retroperitoneal lymph nodes. Largest lymph node is a left periaortic lymph node measuring 1.6 x 2 cm axial image 29 series 3 and appears unchanged. No new adenopathy is seen. There is no ascites. VASCULAR: There is evidence of atherosclerotic disease. No aneurysm is seen. There is narrowing of the SMV from adenopathy or soft tissue mass all bowel mesentery as described above. PELVIC VISCERA: Unremarkable. There is trace fluid in the pelvis. OSSEOUS STRUCTURES: The 7 mm sclerotic lesion in the right iliac bone axial image 55 series 3 is stable. There is increased sclerosis of the S1 vertebral body that is stable. There is question of a small 4 mm sclerotic lesion in the right superior L4 vertebral body that is stable. CT/CT abdomen pelvis w con IMPRESSION: Right lower lobe nodules no longer seen. Stable heterogeneous enhancement of the liver and a 3.8 x 4 cm lesion in the right lobe liver. Stable retroperitoneal and small bowel mesentery lymphadenopathy. Stable sclerotic bone lesions. Fleischner guidelines were followed.
[2021-11-05] MEDS: Barium Sulfate Oral (Vanilla) 450 ML ORAL.SUSP 900 ML PO (08:50)
[2021-11-05] MEDS: iohexoL 350 MG/ML 100 ML INFUS..BTL IV (08:50)
== END 2021-11-05 05:57 | disposition home or self-care (01) ==
LOC: HO.CT 05:56
PROVIDERS: PCP Internal Medicine; Visit Provider Internal Medicine Medical Oncology
DX: E34.0 Carcinoid syndrome (principal); K76.9 Liver disease, unspecified
CPT/HCPCS: 74177; Q9967

== ENCOUNTER 2021-11-11 07:36 | Day surgery (SDC) | payer OTHER, SELFPAY ==
[2021-11-05 13:53] VITALS: BMI 24.3
--- NOTE | 2021-11-05 14:09 | HO.ANESPROP2 ---
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, s/p R hemicolectomy 01/2018 [facility] [place]19-10/23/21 with acute on chronic CHF PMF Active Problems Active Problems: All Active Problems (Updated 11/05/21 @ 13:33 by Lo Chowdary RN) Oropharyngeal dysphagia (Acute) Colon cancer screening (Acute) Hypertension (Acute) Migraine headache with aura (Acute) Nausea (Acute) Helicobacter pylori gastritis (Acute) Hot flashes (Acute) Increased follicle stimulating hormone (FSH) level (Acute) Abnormal EKG (Acute) Chest pain (Acute) Abnormal stress ECG (Acute) Palpitation (Acute) Eczema (Acute) Liver metastasis (Acute) Encounter for Medicare annual wellness exam (Acute) Carcinoid tumor (Acute) Past Medical History Medical History (Updated 11/07/21 @ 08:30 by Geni Pierson MD) Carcinoid heart disease Carcinoid tumor Congestive heart failure Depression Eczema Encounter for annual wellness exam in Medicare patient Encounter for Medicare annual wellness exam History of headache HTN (hypertension) Hx of left bundle branch block Lab test negative for COVID-19 virus Liver metastasis Malignant carcinoid tumor of ileum Non-rheumatic aortic regurgitation Non-rheumatic mitral regurgitation Postmenopausal Family History Family History Brother History of throat cancer Maternal Aunt History of colon cancer Mother Hx of completed stroke Father No problems noted. Family/Other Substance use disorder Surgical History Surgical History H/O colonoscopy History of History of endometrial ablation History of esophagogastroduodenoscopy (EGD) History of right hemicolectomy (~01/2018) Hx of dilation and curettage Hx of eye surgery Hx of tubal ligation Social History Social History (Updated 11/07/21 @ 08:09 by Geni Pierson MD) Household Members: Spouse and Children Housing: House Are you a primary career developer to a significant other at home: No Do you presently have visiting nurse or other home services: No Alcohol intake: unknown Patient Tobacco Use Status: Never used Tobacco e-Cigarette/Vaping Use: Never Used Second Hand Smoke Exposure: No Use of substances other than those prescribed or required for medical reasons: No Are you DNR?: No Advance Directives: Yes Advance Directives on File: Yes Advance Directives Date on File: 09/11/21 service: No Current occupational status: disabled Meds Allergies Allergy/AdvReac Type Severity Reaction Status Date / Time oxycodone Allergy Intermediate hives Verified 11/07/21 08:01 Home Medications Medication Instructions Recorded Confirmed Last Taken Type telotristat ethyl 250 mg tablet 250 mg PO TID tab 08/16/20 11/07/21 10/18/21 History (Xermelo) ascorbic acid (vitamin C) 500 mg 500 mg PO DAILY 10/19/21 11/07/21 10/18/21 History tablet (Vitamin C) hydrocortisone 2.5 % topical cream 1 appl TOPICAL BID PRN 10/19/21 11/07/21 10/18/21 History Exam Exam Date and Time: November 05, 2021 1409 Height,Weight and Vital Signs: Height 5 ft 2 in Weight 60.5 kg Pertinent Lab Results Pertinent Lab Results: Laboratory Tests 10/23/21 10/23/21 06:05 06:05 WBC 2.9 L Hgb 9.4 L Hct 30.2 L Plt Count 119 L Sodium 141 Potassium 3.4 Chloride 96 Carbon Dioxide 35 H BUN 12 Creatinine 1.10 Narrative Narrative: ECHO 10/2021 Conclusions: - Normal left ventricular size, thickness, systolic function, and wall motion. The visually estimated ejection fraction is between 55-60%.? - E/E prime ratio is >15, consistent with elevated filling ? ? ? pressures. ? - Normal right ventricular cavity size and systolic function.? ? - There is moderate aortic valve regurgitation.? - There is no evidence of interatrial shunt by color Doppler and contrast.? - There is severe mitral valve regurgitation.? - There is mild dilatation of the ascending aorta measuring 3.90 cm.?? EKG 10/2021 Vent. Rate : 088 BPM ? ? Atrial Rate : 088 BPM ?? P-R Int : 152 ms? QRS Dur : 142 ms ? ? QT Int : 392 ms ? ? ? P-R-T Axes : 027 018 095 degrees ?? QTc Int : 474 ms ? 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 on radiation at [facility] Past Medical History Medical History (Updated 11/07/21 @ 08:30 by Geni Pierson MD) Carcinoid heart disease Carcinoid tumor Congestive heart failure Depression Eczema Encounter for annual wellness exam in Medicare patient Encounter for Medicare annual wellness exam History of headache HTN (hypertension) Hx of left bundle branch block Lab test negative for COVID-19 virus Liver metastasis Malignant carcinoid tumor of ileum Non-rheumatic aortic regurgitation Non-rheumatic mitral regurgitation Postmenopausal Family History Family History Brother History of throat cancer Maternal Aunt History of colon cancer Mother Hx of completed stroke Father No problems noted. Family/Other Substance use disorder Family history of problems with anesthesia: No Surgical History Surgical History H/O colonoscopy History of History of endometrial ablation History of esophagogastroduodenoscopy (EGD) History of right hemicolectomy (~01/2018) Hx of dilation and curettage Hx of eye surgery Hx of tubal ligation History of Problems with Anesthesia: No Social History Social History (Updated 11/07/21 @ 08:09 by Geni Pierson MD) Household Members: Spouse and Children Housing: House Are you a primary career developer to a significant other at home: No Do you presently have visiting nurse or other home services: No Alcohol intake: unknown Patient Tobacco Use Status: Never used Tobacco e-Cigarette/Vaping Use: Never Used Second Hand Smoke Exposure: No Use of substances other than those prescribed or required for medical reasons: No Are you DNR?: No Advance Directives: Yes Advance Directives on File: Yes Advance Directives Date on File: 09/11/21 service: No Current occupational status: disabled Meds Allergies Allergy/AdvReac Type Severity Reaction Status Date / Time oxycodone Allergy Intermediate hives Verified 11/07/21 08:01 Home Medications Medication Instructions Recorded Confirmed Last Taken Type telotristat ethyl 250 mg tablet 250 mg PO TID tab 08/16/20 11/07/21 10/18/21 History (Xermelo) ascorbic acid (vitamin C) 500 mg 500 mg PO DAILY 10/19/21 11/07/21 10/18/21 History tablet (Vitamin C) hydrocortisone 2.5 % topical cream 1 appl TOPICAL BID PRN 10/19/21 11/07/21 10/18/21 History Exam Airway Mallampati Class: I Neck ROM: Full Loose/Missing/Broken Teeth: Yes (Chipped teeth ) Heart: RRR Lungs: b/l breath sounds Assessment and Plan Assessment Anesthesia Assessment: Anesthesia Plan Discussed Final Anesthetic Review Family History of Problems with Anesthesia: No History of Problems with Anesthesia: No NPO: Yes ASA Class: III Final Preanesthetic Review: Meds/Allgs Chart Reviewed, Consent Obtained/Reviewed and Anes Risks/Benef Reviewed Patient Risk: High Procedure Risk: Intermediate Anesthetic Plan Anesthetic Plan: MAC: Disposition: Standard PACU
[2021-11-11 08:36] VITALS: BP 112/40; PULSE 73; RESP 16; TEMP 36.2; O2SAT 97
[2021-11-11] MEDS: Lactated Ringers 1,000 ML 20 ML IVCONT (08:47)
--- NOTE | 2021-11-11 10:00 | CA_ITS ---
Transesophageal Echocardiogram Patient (Last, First, Middle): Berta Kirkland M Gender: Female Date of : 1965 Age: 56 Procedure Date: 11/11/2021 Procedure Type: Transesophageal Echocardiogram Location: OP Height: 160.02 cm Weight: kg Education Department Chair: Referring MD: Peterson Zapata MD Symptoms: mitral valve regurgitation Conclusion: ??? Severe mitral valve regurgitation. ??? Moderate to severe aortic valve regurgitation. ??? Small pericardial effusion. Findings Procedure Information Consent was obtained prior to the procedure. The adult 3D probe was passed with no difficulty. Left Ventricle Normal left ventricular size and systolic function. The visually estimated ejection fraction is between 55-60%. Right Ventricle Normal right ventricular cavity size and systolic function. Atria There is no evidence of a thrombus in the left atrial appendage. There is no evidence of interatrial shunt by color Doppler. Aortic Valve There is no aortic valve stenosis. There is moderate to severe aortic valve regurgitation. Mild thickening at the leaflet tips noted. Mitral Valve The posterior mitral leaflet is immobile. There is severe mitral valve regurgitation. There is no mitral valve stenosis. Pulmonic Valve The pulmonic valve is normal. There is mild pulmonic valve regurgitation. Tricuspid Valve Normal tricuspid valve structure. There is mild tricuspid valve regurgitation. Great Vessels All visible segments of the aorta are normal in size. Venous The inferior vena cava was not well visualized. There is normal flow in the left upper pulmonary vein. Pericardium/Pleural There is a small pericardial effusion. There is no pleural effusion. Measurements Mitral Valve MR Vol - PW Dopp: 48.14 MR VTI: 1.66 MR ERO: 29.00 MR Alias Billy: 0.39 MR RAD: 0.80 Updated by Peterson Zapata on 10:13 PM with Status of Final Peterson Zapata MD electronically signed on 11/11/2021 10:13:16 PM with status of Final
--- NOTE | 2021-11-11 10:24 | MHC.SHP ---
Pre-Procedural Eval Section A Date of Service: 11/11/21 The patient is an INPATIENT: No Section B Chief Complaint: mitral valve insufficiency Details of Present Illness: MR and CHF. Here for SHMUEL. Allergies: Allergies Allergy/AdvReac Type Severity Reaction Status Date / Time oxycodone Allergy Intermediate hives Verified 11/07/21 08:01 Plan Diagnosis/Plan: Unchanged I have reviewed the history and physical and performed a pertinent physical examination on my patient. No changes have occurred unless specified.
[2021-11-11 11:20] VITALS: BP 124/55; PULSE 75; RESP 15; TEMP 36.2; O2SAT 100
[2021-11-11 11:34] VITALS: BP 132/55; PULSE 74; RESP 16; O2SAT 100
[2021-11-11 11:44] VITALS: BP 121/62; PULSE 71; RESP 16; TEMP 36.1; O2SAT 100
== END 2021-11-11 12:10 | disposition home or self-care (01) ==
PROVIDERS: PCP Internal Medicine; Visit Provider Internal Medicine Cardiovascular Disease
PROC: (CPT 93312; principal; 2021-11-11 10:00)
DX: I34.0 Nonrheumatic mitral (valve) insufficiency (principal); I35.1 Nonrheumatic aortic (valve) insufficiency; I11.0 Hypertensive heart disease with heart failure; I50.33 Acute on chronic diastolic (congestive) heart failure; D3A.00 Benign carcinoid tumor of unspecified site; E34.0 Carcinoid syndrome; Z86.79 Personal history of other diseases of the circulatory system; Z79.899 Other long term (current) drug therapy; Z88.5 Allergy status to narcotic agent
CPT/HCPCS: 93312; J2250; J3010

== ENCOUNTER → 2021-12-11 13:35 | Outpatient (BNVA) | payer OTHER, SELFPAY | PROVIDERS: PCP Internal Medicine; Referring Provider Internal Medicine; Visit Provider Internal Medicine Cardiovascular Disease | DX: D3A.00 Benign carcinoid tumor of unspecified site (principal); I34.0 Nonrheumatic mitral (valve) insufficiency; I35.1 Nonrheumatic aortic (valve) insufficiency | CPT/HCPCS: 99212 ==

== ENCOUNTER 2021-12-18 13:46 | Outpatient (REF) | payer OTHER, SELFPAY ==
[2021-12-18 13:57] LABS: MANUAL DIFF FLAG NO
[2021-12-18 14:14] LABS: Hematocrit 30.4 % (37.0-47.0); Hemoglobin 9.7 g/dl (12.0-16.0); Mean Corpuscular HGB Conc 31.9 g/dl (31.0-35.0); Mean Corpuscular Hemoglobin 29.8 pg (27.0-33.0); Mean Corpuscular Volume 93.5 fL (80.0-98.0); Platelet Count 139 X10*3/uL (160-400); Red Blood Count 3.25 X10*6/uL (4.20-5.50)
[2021-12-18 14:15] LABS: Basophils Percent Auto 0.5 % (0-2); Eosinophils Absolute Auto 0.1 X10*3/uL (0.0-0.4); Eosinophils Percent Auto 1.5 % (0-4); Imm Gran Abs Auto 0.01 X10*3/uL (0.00-0.03); Imm Gran Pct Auto 0.3 % (0.0-0.4); Lymphocytes Absolute Auto 0.3 X10*3/uL (1.2-4.9); Lymphocytes Percent Auto 7.6 % (20-40); Mean Platelet Volume 9.8 fL (9.4-12.3); Monocytes Absolute Auto 0.5 X10*3/uL (0.1-1.2); Monocytes Percent Auto 11.6 % (2-11); Neutrophils Absolute Auto 3.1 x10*3/uL (2.0-8.3); Neutrophils Percent Auto 78.5 % (45-73)
[2021-12-18 14:50] LABS: Alanine Aminotransferase 34 U/L (0-31); Albumin Level 4.2 g/dL (3.5-5.0); Alkaline Phosphatase 120 U/L (39-117); Anion Gap 14 (12-20); Aspartate Amino Transferase 36 U/L (5-31); Bilirubin Total 0.7 mg/dL (0.0-1.0); Blood Urea Nitrogen 17 mg/dL (9-16); Calcium 9.2 mg/dL (8.4-10.2); Carbon Dioxide 24 mmol/L (22-29); Chloride 106 mmol/L (96-108); Estimated Glomerular Filt Rate 39; Glucose Random 110 mg/dL (60-115); Potassium 4.1 mmol/L (3.3-5.1); Sodium 140 mmol/L (135-145); Total Protein 7.2 g/dL (6.5-8.0)
[2021-12-27 17:52] LABS: Chromogranin A 3566 ng/mL (ADULTS: <311)
== END 2021-12-18 13:47 | disposition home or self-care (01) ==
LOC: HO.LAB 13:46
PROVIDERS: PCP Internal Medicine; Visit Provider Internal Medicine Medical Oncology
DX: E34.0 Carcinoid syndrome (principal)
CPT/HCPCS: 36415; 80053; 85025; 86316

== ENCOUNTER 2021-12-29 22:47 | Emergency (ER) | payer OTHER, SELFPAY ==
--- NOTE | ~2021-12-29 | XR_ITS ---
EXAMINATION: XR CHEST CLINICAL INFORMATION: Chest pain. COMPARISON: Chest radiograph dated from 10/19/2021. TECHNIQUE: Frontal view of the chest was obtained. FINDINGS: Unchanged prominence of the cardiomediastinal silhouette. No focal airspace opacities, pleural effusions or pneumothorax. No acute osseous abnormalities. The visualized upper abdomen is within normal limits. XR/XR chest 1V IMPRESSION: No acute cardiopulmonary findings.
--- NOTE | 2021-12-29 22:48 | ECG_ITS ---
Test Reason : CP Blood Pressure : / mmHG Vent. Rate : 085 BPM Atrial Rate : 085 BPM P-R Int : 168 ms QRS Dur : 090 ms QT Int : 374 ms P-R-T Axes : 041 050 072 degrees QTc Int : 445 ms Normal sinus rhythm Normal ECG When compared with ECG of 19-OCT-2021 10:35, Left bundle branch block is no longer Present Referred By: Generic ED Physician Electronically Signed By:Peterson Zapata
[2021-12-29 22:49] VITALS: BP 154/67; PULSE 80; RESP 18; TEMP 37.2; O2SAT 100; BMI 22.3
[2021-12-29] MEDS: Ondansetron ODT 4 MG TAB.RAPDIS TRANSLINGU (22:57)
[2021-12-29 23:08] LABS: Basophils Percent Auto 0.2 % (0-2); Eosinophils Absolute Auto 0.1 X10*3/uL (0.0-0.4); Hematocrit 30.7 % (37.0-47.0); Hemoglobin 9.8 g/dl (12.0-16.0); Imm Gran Abs Auto 0.01 X10*3/uL (0.00-0.03); Imm Gran Pct Auto 0.2 % (0.0-0.4); Lymphocytes Absolute Auto 0.4 X10*3/uL (1.2-4.9); Lymphocytes Percent Auto 7.8 % (20-40); MANUAL DIFF FLAG NO; Mean Corpuscular HGB Conc 31.9 g/dl (31.0-35.0); Mean Corpuscular Hemoglobin 29.4 pg (27.0-33.0); Mean Corpuscular Volume 92.2 fL (80.0-98.0); Mean Platelet Volume 10.2 fL (9.4-12.3); Monocytes Absolute Auto 0.4 X10*3/uL (0.1-1.2); Monocytes Percent Auto 7.8 % (2-11); Platelet Count 139 X10*3/uL (160-400); Red Blood Count 3.33 X10*6/uL (4.20-5.50); Red Cell Distribution Width 14.4 % (11.0-16.0); White Blood Count 4.9 X10*3/uL (4.8-10.8)
[2021-12-29 23:23] LABS: COVID-19 Test Negative (Negative)
--- NOTE | 2021-12-29 23:25 | ED_ITS ---
HPI - Chest Pain General Chief Complaint: Chest Pain Stated Complaint: Chest pain Time Seen by Provider: 12/29/21 23:25 Source: patient and family (Daughter) Mode of arrival: ambulatory History of Present Illness HPI narrative: 56-year-old female with history of carcinoid cancer (questionable metastatic), CHF, and known mitral/atrial valve regurgitation. Patient presents with 20:00 onset chest pain while resting, patient describes it as feeling like and elbows her back and radiates into the left scapula with feeling short of breath. Pain does not change with deep inspiration or movement in she waited a couple of hours to see if it would resolve. She denies any association with dizziness/headache/nausea, but states after arrival here in the emergency room she began having nausea, vomiting, diarrhea. Related Data Home Medications Medication Instructions Recorded Confirmed telotristat ethyl 250 mg tablet 250 mg PO TID tab 08/16/20 12/11/21 (Xermelo) ascorbic acid (vitamin C) 500 mg 500 mg PO DAILY 10/19/21 12/11/21 tablet (Vitamin C) hydrocortisone 2.5 % topical cream 1 appl TOPICAL BID PRN 10/19/21 12/11/21 octreotide,microspheres 20 mg mg IM Q4W ea 12/11/21 12/11/21 intramuscular susp, extended release (Sandostatin LAR Depot) Previous Rx's Medication Instructions Recorded blood pressure monitor (Blood #1 ea 02/05/21 Pressure Kit) carvedilol 6.25 mg tablet 6.25 mg PO BID 90 Days #180 tab 04/09/21 venlafaxine 75 mg capsule,extended 75 mg PO DAILY 90 Days #90 cap 07/04/21 release 24 hr ondansetron HCl 8 mg tablet 8 mg PO Q8H PRN #30 tab 09/13/21 omeprazole 10 mg capsule,delayed 10 mg PO BID #180 cap 10/29/21 release furosemide 40 mg tablet 40 mg PO BID #90 tab 12/11/21 lisinopril 20 mg tablet 20 mg PO DAILY #30 tab 12/27/21 Allergies Allergy/AdvReac Type Severity Reaction Status Date / Time oxycodone Allergy Intermediate hives Verified 12/29/21 22:49 Review of Systems Review of Systems: Pertinent positives and negatives as stated in HPI 10 point review of systems is otherwise negative. PMFSH Past Medical History Source: nursing notes reviewed Medical History Carcinoid heart disease Carcinoid tumor Congestive heart failure Depression Eczema Encounter for annual wellness exam in Medicare patient Encounter for Medicare annual wellness exam History of headache HTN (hypertension) Hx of left bundle branch block Lab test negative for COVID-19 virus Liver metastasis Malignant carcinoid tumor of ileum Non-rheumatic aortic regurgitation Non-rheumatic mitral regurgitation Postmenopausal Surgical History H/O colonoscopy History of History of endometrial ablation History of esophagogastroduodenoscopy (EGD) History of right hemicolectomy (~01/2018) Hx of dilation and curettage Hx of eye surgery Hx of tubal ligation Family History Family History Brother History of throat cancer Maternal Aunt History of colon cancer Mother Hx of completed stroke Father No problems noted. Family/Other Substance use disorder Social History Social History Household Members: Spouse and Children Housing: House Are you a primary housekeeper child care to a significant other at home: No Do you presently have visiting nurse or other home services: No Alcohol intake: unknown Patient Tobacco Use Status: Never used Tobacco e-Cigarette/Vaping Use: Never Used Second Hand Smoke Exposure: No Advance Directives: Yes Advance Directives on File: Yes Advance Directives Date on File: 09/11/21 service: No Current occupational status: disabled Cognitive needs: No Hearing needs: No Vision needs: No Physical Exam Vital Signs: Vital Signs: Last Vital Signs Temp 98.7 F 12/30/21 00:37 Pulse 74 12/30/21 00:37 Resp 18 12/30/21 00:37 BP 142/64 H 12/30/21 00:37 Pulse Ox 97 12/30/21 00:37 BMI result Body Mass Index 22.3 VITAL SIGNS: Reviewed. GENERAL: Well developed, well nourished, in no acute distress. HEAD: Normocephalic/atraumatic EYES: PERRLA, EOMI EARS: Ext canals without abnormality OROPHARYNX: no oral lesions noted, posterior pharynx clear LUNGS: Normal breath sounds. No adventitious sounds or accessory muscle use. SpO2<100> CHEST WALL: No reproducible pain when palpation over left scapula/back CARDIOVASCULAR: Regular rate and rhythm without noted murmurs ABDOMEN: Soft, non-tender, non-distended with bowel sounds. NEUROLOGIC: Alert and oriented x 4. Strength and sensation to light touch were grossly intact x 4. Course Course Course Narrative: 56-year-old female with history and clinical presentation concerning for possible CHF exacerbation, PE, there are no noted EKG changes at this time. On review of all investigations although the D-dimer is elevated it is flat and comparison to values from 10/[address] angio with PE protocol there were no PEs. Patient continues to oxygenating well on room air and is not tachypneic, serial troponins are flat at 7. There is an elevated BNP and patient was instructed to take an additional dose of her Lasix this evening. Her pain has somewhat improved and discussed with her the possibility that this is related to her underlying carcinoid CA. patient was encouraged to return to the emergency room should she continue to feel poorly and although CT of the chest with noncontrast was offered, she states that she is feeling tired and wants to go home. Patient is otherwise hemodynamically stable. Her daughter was also in the room and acknowledges the plan. MDM - Chest Pain Lab Data Result diagrams: 12/29/21 23:00 12/29/21 23:00 Labs: Lab Results 12/29/21 12/29/21 12/29/21 Range/Units 23:00 23:00 23:00 WBC 4.9 (4.8-10.8) X10*3/uL RBC 3.33 L (4.20-5.50) X10*6/uL Hgb 9.8 L (12.0-16.0) g/dl Hct 30.7 L (37.0-47.0) % MCV 92.2 (80.0-98.0) fL MCH 29.4 (27.0-33.0) pg MCHC 31.9 (31.0-35.0) g/dl RDW 14.4 (11.0-16.0) % Plt Count 139 L (160-400) X10*3/uL MPV 10.2 (9.4-12.3) fL Immature Gran % (Auto) 0.2 (0.0-0.4) % Neut % (Auto) 82.0 H (45-73) % Lymph % (Auto) 7.8 L (20-40) % Candler % (Auto) 7.8 (2-11) % Eos % (Auto) 2.0 (0-4) % Baso % (Auto) 0.2 (0-2) % Lymph # (Auto) 0.4 L (1.2-4.9) X10*3/uL Candler # (Auto) 0.4 (0.1-1.2) X10*3/uL Eos # (Auto) 0.1 (0.0-0.4) X10*3/uL Baso # (Auto) 0.0 (0.0-0.2) X10*3/uL Abs Immat Gran (auto) 0.01 (0.00-0.03) X10*3/uL Absolute Neuts (auto) 4.0 (2.0-8.3) x10*3/uL Absolute Nucleated RBC 0.000 (0.0-0.012) X10*3/uL Nucleated RBC % (auto) 0.0 (0.0-0.2) /100WBC D-Dimer High Sensitivty NG/ML Sodium 141 (135-145) mmol/L Potassium 3.5 (3.3-5.1) mmol/L Chloride 106 (96-108) mmol/L Carbon Dioxide 25 (22-29) mmol/L Anion Gap 14 (12-20) BUN 16 (9-16) mg/dL Creatinine 1.57 H (0.5-1.4) mg/dL Estim Creat Clear Calc 32.3 Estimated GFR 34 Random Glucose 91 (60-115) mg/dL Calcium 9.1 (8.4-10.2) mg/dL Total Bilirubin 0.5 (0.0-1.0) mg/dL AST 33 H (5-31) U/L ALT 25 (0-31) U/L Alkaline Phosphatase 118 H (39-117) U/L Troponin I High Sens 7.9 D (<3.5-17.0) ng/L B-Natriuretic Peptide 402 H (<100) pg/mL Total Protein 7.0 (6.5-8.0) g/dL Albumin 4.2 (3.5-5.0) g/dL COVID-19 (JESSICA) (Negative) COVID-19 Clin Com 12/29/21 12/29/21 12/30/21 Range/Units 23:00 23:53 00:37 WBC (4.8-10.8) X10*3/uL RBC (4.20-5.50) X10*6/uL Hgb (12.0-16.0) g/dl Hct (37.0-47.0) % MCV (80.0-98.0) fL MCH (27.0-33.0) pg MCHC (31.0-35.0) g/dl RDW (11.0-16.0) % Plt Count (160-400) X10*3/uL MPV (9.4-12.3) fL Immature Gran % (Auto) (0.0-0.4) % Neut % (Auto) (45-73) % Lymph % (Auto) (20-40) % Candler % (Auto) (2-11) % Eos % (Auto) (0-4) % Baso % (Auto) (0-2) % Lymph # (Auto) (1.2-4.9) X10*3/uL Candler # (Auto) (0.1-1.2) X10*3/uL Eos # (Auto) (0.0-0.4) X10*3/uL Baso # (Auto) (0.0-0.2) X10*3/uL Abs Immat Gran (auto) (0.00-0.03) X10*3/uL Absolute Neuts (auto) (2.0-8.3) x10*3/uL Absolute Nucleated RBC (0.0-0.012) X10*3/uL Nucleated RBC % (auto) (0.0-0.2) /100WBC D-Dimer High Sensitivty 335 NG/ML Sodium (135-145) mmol/L Potassium (3.3-5.1) mmol/L Chloride (96-108) mmol/L Carbon Dioxide (22-29) mmol/L Anion Gap (12-20) BUN (9-16) mg/dL Creatinine (0.5-1.4) mg/dL Estim Creat Clear Calc Estimated GFR Random Glucose (60-115) mg/dL Calcium (8.4-10.2) mg/dL Total Bilirubin (0.0-1.0) mg/dL AST (5-31) U/L ALT (0-31) U/L Alkaline Phosphatase (39-117) U/L Troponin I High Sens 7.7 (<3.5-17.0) ng/L B-Natriuretic Peptide (<100) pg/mL Total Protein (6.5-8.0) g/dL Albumin (3.5-5.0) g/dL COVID-19 (JESSICA) Negative (Negative) COVID-19 Clin Com See Note ECG Data ECG #1: Attestation: I personally reviewed and interpreted this ECG as follows: Prior ECG tracings: available for review Interpretation: Normal sinus rhythm, HR-85, no STEMI, IA/QRS/QTC are within normal limits. Discharge Plan Discharge Clinical Impression: Atypical chest pain, Liver metastasis, Carcinoid tumor Patient Disposition: Home, Self-Care Instructions: Chest Pain (ED), Chest Wall Pain (ED) Additional Instructions: 1. Resume all home medications as prescribed. Take 1 additional dose of your Lasix this evening and continue with regular scheduling of your medication this morning. 2. Should you develop any worsening of your symptoms please do not hesitate to return to the emergency room. 3. Please keep your scheduled appointment on Thursday in [place] for further evaluation of your heart condition. Prescriptions: No Action carvedilol 6.25 mg tablet 6.25 mg PO BID 90 Days Qty: 180 3RF Rx Instructions: must administer with a meal/food venlafaxine 75 mg capsule,extended release 24hr 75 mg PO DAILY 90 Days Qty: 90 3RF omeprazole 10 mg capsule,delayed release(DR/EC) 10 mg PO BID Qty: 180 0RF lisinopril 20 mg tablet 20 mg PO DAILY Qty: 30 4RF Protocol: Hold for SBP< HOLD for SBP < : 90 ondansetron HCl 8 mg tablet 8 mg PO Q8H PRN (Reason: nausea and vomiting) Qty: 30 0RF hydrocortisone 2.5 % cream 1 appl topical BID PRN (Reason: Rash) 0RF ascorbic acid (vitamin C) [Vitamin C] 500 mg Tablet 500 mg PO DAILY 0RF Xermelo 250 mg tablet 250 mg PO TID 0RF Rx Instructions: must administer with a meal/food (DME) blood pressure monitor [Blood Pressure Kit] Kit See Rx Instructions .ROUTE .MEDSUPPLY Qty: 1 0RF Rx Instructions: As directed - take BP daily and keep a log Sandostatin LAR Depot 20 mg suspension,extended rel recon IM Q4W 0RF furosemide 40 mg tablet 40 mg PO BID Qty: 90 3RF Referrals: Geni Cooper MD [Primary Care Provider] -
[2021-12-29 23:26] LABS: Alanine Aminotransferase 25 U/L (0-31); Albumin Level 4.2 g/dL (3.5-5.0); Alkaline Phosphatase 118 U/L (39-117); Anion Gap 14 (12-20); Aspartate Amino Transferase 33 U/L (5-31); Bilirubin Total 0.5 mg/dL (0.0-1.0); Blood Urea Nitrogen 16 mg/dL (9-16); Calcium 9.1 mg/dL (8.4-10.2); Carbon Dioxide 25 mmol/L (22-29); Chloride 106 mmol/L (96-108); Creatinine Clr Calc Pharmacy 32.3; Estimated Glomerular Filt Rate 34; Glucose Random 91 mg/dL (60-115); Potassium 3.5 mmol/L (3.3-5.1); Sodium 141 mmol/L (135-145)
[2021-12-29 23:48] LABS: B Type Natriuretic Peptide 402 pg/mL (<100); Troponin-I High Sensitivity 7.9 ng/L (<3.5-17.0)
[2021-12-29 23:55] VITALS: BP 144/67; PULSE 76; RESP 12; O2SAT 96
[2021-12-30 00:08] LABS: D Dimer High Sensitivity 335 NG/ML
[2021-12-30 00:37] VITALS: BP 142/64; PULSE 74; RESP 18; TEMP 37.1; O2SAT 97
[2021-12-30 01:01] LABS: Troponin-I High Sensitivity 7.7 ng/L (<3.5-17.0)
== END 2021-12-30 01:37 | disposition home or self-care (01) ==
PROVIDERS: Emergency Provider Student in an Organized Health Care Education/Training Program; PCP Internal Medicine
DX: R07.89 Other chest pain (principal); C22.9 Malignant neoplasm of liver, not specified as primary or secondary; M79.10 Myalgia, unspecified site; Z79.899 Other long term (current) drug therapy; Z20.822 Contact with and (suspected) exposure to COVID-19
CPT/HCPCS: 36415; 71045; 80053; 83880; 84484; 85025; 85379; 87635; 93005; 99283; 99284